=== PATIENT | male | born 1950 | race Caucasian/White ===

== ENCOUNTER 2016-05-27 07:57 | Observation (INO) ==
[2016-05-27] MEDS ORDERED: Aspirin 81 MG TAB.CHEW ONE (08:54)
[2016-05-27] MEDS ORDERED: Aspirin 81 MG TAB.CHEW PO ONE (08:54)
[2016-05-27] MEDS ORDERED: Nitroglycerin 0.4 MG TAB.SUBL SL ONE (08:54)
[2016-05-27] MEDS: Nitroglycerin 0.4 MG TAB.SUBL SL PRN ×3 (08:56→11:57)
[2016-05-27 09:01] LABS: Basophils # 0.1 K/mcL (0.0-0.2); Basophils % 0.6 %; Eosinophils # 0.3 K/mcL (0.0-0.6); Hematocrit 47.5 % (37.5-50.1); Hemoglobin 15.8 g/dL (12.9-16.9); Immature Granulocytes % 0.5 % (0-4); Immature Platelets 2.6 % (1.1-6.1); Lymphocytes # 1.9 K/mcL (0.6-4.6); Mean Corpuscular HGB Conc 33.3 g/dL (31.6-35.5); Mean Corpuscular Volume 87.2 fL (83.0-100.0); Mean Platelet Volume 9.2 fL (9.4-12.4); Monocytes # 0.9 K/mcL (0.0-1.3); Monocytes % 7.1 %; Neutrophils # 9.5 K/mcL (1.6-8.9); Platelet Count 284 K/mcL (140-400); Red Blood Count 5.45 M/mcL (4.19-5.50); Segmented Neutrophils % 74.8 %
[2016-05-27] MEDS ORDERED: Ondansetron 4 MG/2 ML VIAL IVP ONE (09:05)
--- NOTE | 2016-05-27 09:05 | Emergency Department Note ---
Disposition Clinical Impression: Chest pain Qualifiers: Chest pain type: unspecified Qualified Code(s): R07.9 - Chest pain, unspecified Disposition: Admitted As Inpatient Condition: Fair Referrals: Tico Thompson MD [Primary Care Provider] - Forms: ED Satisfaction Letter Time of Disposition: 10:24 Chest Pain HPI - General Chief Complaint: ED Chest Pain Stated Complaint: chest pains,jigna Time Seen by Provider: 05/27/16 08:34 Source: patient Limitations: no limitations Vital Signs Reviewed: Yes Nursing Notes Reviewed: Yes - History of Present Illness HPI Narrative: 66-year-old nontoxic-appearing male presents to emergency department with a chief complaint of left-sided chest pain. The patient states this pain began sometime yesterday evening. He rates the pain a 10 out of 10 on a 10 point scale and describes it as sharp in nature. Patient states this pain is accompanied with a moderate amount of shortness of breath, however he denies any fever, chills, or cough. He complains of some nausea but denies any vomiting or diarrhea. He denies any blood in his urine or blood in his stool. He also complains of intermittent episodes of syncopal episodes. He states that he has been evaluated for this by several different providers including a neurologist. He states the only testing that they have not performed is a tilt table test. He denies any previous cardiac history, although he admits to a history of hypertension, hyperlipidemia, diabetes, and cigarette smoking. Pt complaint: chest pain Onset (ago): day(s) (1) Duration: constant Onset: during rest Pain Location: left chest Severity: severe Severity scale (1-10): 10 Quality: sharp Pain Radiation: none Improves with: nothing Worsens with: nothing Associated symptoms: Reports: nausea, diaphoresis, dyspnea, syncope. Denies: vomiting, cough, leg swelling Treatments prior to arrival chest pain: none - Related Data Home Medications Medication Instructions Recorded Confirmed Gabapentin [Neurontin] 600 mg PO BID 01/08/16 05/27/16 Glimepiride [Amaryl] 4 mg PO BID 01/08/16 05/27/16 Insulin NPH Human Isophane 60 unit SQ BID 01/08/16 05/27/16 [Novolin N] Insulin Regular, Human [Novolin R] 40 unit SQ TIDWM 01/08/16 05/27/16 Metoprolol XL (24 HR) Succ [Toprol 50 mg PO DAILY 01/08/16 05/27/16 Xl] Omeprazole [PriLOSEC] 40 mg PO DAILY 01/08/16 05/27/16 OxyCODONE/APAP 10/325 [Percocet 1 tab PO Q6H PRN 01/08/16 05/27/16 10/325 MG] Duloxetine [Cymbalta] 30 mg PO BID 05/27/16 05/27/16 Liraglutide [Victoza 2-Isac] 1.8 mg SQ DAILY 05/27/16 05/27/16 Ondansetron [Zofran] 8 mg PO TID PRN 05/27/16 05/27/16 Oxcarbazepine [Trileptal] 150 mg PO DAILY 05/27/16 05/27/16 Testosterone Cypionate 200 mg IM Q3W 05/27/16 05/27/16 [Depo-Testosterone] Tizanidine HCl 4 mg PO Q8H PRN 05/27/16 05/27/16 Previous Rx's Medication Instructions Recorded Amlodipine [Norvasc] 10 mg PO DAILY #60 tablet 01/09/16 Atorvastatin [Lipitor] 80 mg PO HS #60 tablet 01/09/16 Allergies Allergy/AdvReac Type Severity Reaction Status Date / Time ciprofloxacin [From Cipro] Allergy Hives Verified 01/07/16 19:41 Quinolones Allergy Hives Verified 01/07/16 19:41 Sulfa (Sulfonamide Allergy Hives Verified 01/07/16 19:41 Antibiotics) celecoxib AdvReac Nausea Verified 01/07/16 19:41 All systems ED: reviewed and negative except as stated. Constitutional: Denies: fever, chills, weakness, weight change Cardiovascular: Reports: as per HPI, chest pain. Denies: palpitations, dyspnea on exertion, orthopnea, edema, syncope, paroxysmal nocturnal dyspnea Respiratory: Reports: as per HPI, dyspnea. Denies: cough, wheezes, hemoptysis, stridor, sputum production Gastrointestinal: Reports: as per HPI, nausea. Denies: abdominal pain, vomiting , diarrhea, constipation, hematemesis, melena, hematochezia Musculoskeletal: Denies: back pain, neck pain, arthralgia, myalgia Integumentary: Denies: rash, abrasion, lesions Neurological: Reports: as per HPI, vertigo (Syncopal episodes that began with a "fluttering" in my ears. It feels like the room is spinning around me".). Denies: headache, weakness, numbness, paresthesias, confusion, abnormal gait Psychiatric: Denies: anxiety, depression, suicidal thoughts, homicidal thoughts , auditory hallucinations, visual hallucinations Endocrine: Denies: fatigue Hematological/Lymphatic: Denies: easy bleeding, easy bruising Chest Pain PMH - Past Medical History Medical history: Reports: diabetes, hyperlipidemia, hypertension, renal disease , other Surgical history: Reports: no surgical history Psychiatric history: Reports: no psych history - Social History Smoking Status: Current every day smoker Alcohol use: Reports: rarely Drug use: Reports: none Physical Exam - General Limitations: no limitations General appearance: alert, in no apparent distress - Head Head exam: atraumatic, normocephalic, normal inspection - Eye Eye exam: Present: normal appearance, PERRL, EOMI. Absent: nystagmus - ENT ENT exam: mucous membranes moist - Neck Neck exam: Present: normal inspection, full ROM, trachea midline. Absent: lymphadenopathy - Chest Chest inspection: Present: normal inspection, symmetric chest wall rise. Absent : rash - Respiratory Respiratory exam: Present: normal lung sounds bilaterally. Absent: respiratory distress, wheezes, stridor, accessory muscle use, prolonged expiratory phase - Abdominal Exam Abdominal exam: Present: soft, Non-Tender, normal bowel sounds. Absent: tenderness, distention, guarding, rebound, rigidity - Extremities Exam Extremities exam: Present: normal inspection, full ROM. Absent: tenderness, pedal edema - Back Exam Back exam: Present: normal inspection, full ROM. Absent: tenderness - Neurological Exam Neurological exam: Present: alert, oriented X3 - Psychiatric Psychiatric exam: Present: normal affect, normal mood - Skin Skin exam: Present: warm, dry, intact, normal color. Absent: rash, cyanosis, diaphoresis, erythema, pallor, mottled Course Course Narrative: We will obtain cardiac labs and a chest x-ray. Will administer aspirin and a nitroglycerin challenge, as the patient still rates his pain a 10 out of 10 on a 10 point scale. - Reevaluation(s) Reevaluation #1: Patient states moderate relief of chest pain after administration of nitroglycerin. His chest pain was a 10 out of 10 prior to administration, now he rates it a 6 out of 10. Time: 09:33 Time: 10:18 Reevaluation #3: I spoke with Dr. Hernandez of the hospitalist service. Dr. Hernanedz accepts the patient to the hospitalist service for further evaluation. Time: 10:23 Vital Signs Temperature 98.0 F 05/27/16 07:59 Pulse Rate 87 05/27/16 07:59 Respiratory Rate 20 05/27/16 07:59 Blood Pressure 175/101 05/27/16 07:59 O2 Sat by Pulse Oximetry 99 05/27/16 07:59 Temperature 98.0 F 05/27/16 07:59 Pulse Rate 81 05/27/16 09:36 Respiratory Rate 18 05/27/16 09:36 Blood Pressure 129/73 05/27/16 09:36 O2 Sat by Pulse Oximetry 96 05/27/16 09:36 Oxygen Delivery Oxygen Delivery Room Air Chest Pain - Medical Records Medical records reviewed: Yes I reviewed the patient's medical records. - Lab Data Lab results reviewed: Yes I reviewed the patient's lab results. Result diagrams: 05/27/16 08:52 05/27/16 08:52 Lab Results 05/27/16 05/27/16 05/27/16 Range/Units 08:52 08:52 08:52 WBC 12.7 H (4.3-11.1) K/mcL RBC 5.45 (4.19-5.50) M/mcL Hgb 15.8 (12.9-16.9) g/dL Hct 47.5 (37.5-50.1) % MCV 87.2 (83.0-100.0) fL MCH 29.0 (28.0-33.3) pg MCHC 33.3 (31.6-35.5) g/dL RDW 15.0 H (11.5-14.5) % Plt Count 284 (140-400) K/mcL MPV 9.2 L (9.4-12.4) fL Immature Gran % 0.5 (0-4) % Seg Neutrophils % 74.8 % Lymphocytes % 15.0 % Monocytes % 7.1 % Eosinophils % 2.0 % Basophils % 0.6 % Neutrophils # 9.5 H (1.6-8.9) K/mcL Lymphocytes # 1.9 (0.6-4.6) K/mcL Monocytes # 0.9 (0.0-1.3) K/mcL Eosinophils # 0.3 (0.0-0.6) K/mcL Basophils # 0.1 (0.0-0.2) K/mcL Immature Plt Fraction 2.6 (1.1-6.1) % PT 10.1 (9.4-12.1) Seconds INR 0.9 APTT 32.9 (26.0-36.0) Seconds Sodium (136-145) mEq/L Potassium (3.5-4.5) mEq/L Chloride (98-109) mEq/L Carbon Dioxide (19-29) mEq/L BUN (8-26) mg/dL Creatinine (0.72-1.25) mg/dL Est GFR ( Amer) (> 60) Est GFR (Non-Af Amer) (> 60) BUN/Creatinine Ratio (6-26) Glucose (70-99) mg/dL Calculated Osmolality (280-300) Calcium (8.6-10.8) mg/dL Troponin I (0-0.03) ng/mL B-Natriuretic Peptide 31 (0-100) pg/mL 05/27/16 05/27/16 Range/Units 08:52 08:52 WBC (4.3-11.1) K/mcL RBC (4.19-5.50) M/mcL Hgb (12.9-16.9) g/dL Hct (37.5-50.1) % MCV (83.0-100.0) fL MCH (28.0-33.3) pg MCHC (31.6-35.5) g/dL RDW (11.5-14.5) % Plt Count (140-400) K/mcL MPV (9.4-12.4) fL Immature Gran % (0-4) % Seg Neutrophils % % Lymphocytes % % Monocytes % % Eosinophils % % Basophils % % Neutrophils # (1.6-8.9) K/mcL Lymphocytes # (0.6-4.6) K/mcL Monocytes # (0.0-1.3) K/mcL Eosinophils # (0.0-0.6) K/mcL Basophils # (0.0-0.2) K/mcL Immature Plt Fraction (1.1-6.1) % PT (9.4-12.1) Seconds INR APTT (26.0-36.0) Seconds Sodium 134 L (136-145) mEq/L Potassium 4.2 (3.5-4.5) mEq/L Chloride 102 (98-109) mEq/L Carbon Dioxide 23 (19-29) mEq/L BUN 20 (8-26) mg/dL Creatinine 2.45 H (0.72-1.25) mg/dL Est GFR ( Amer) 32 L (> 60) Est GFR (Non-Af Amer) 26 L (> 60) BUN/Creatinine Ratio 8 (6-26) Glucose 160 H (70-99) mg/dL Calculated Osmolality 284 (280-300) Calcium 8.6 (8.6-10.8) mg/dL Troponin I 0.01 (0-0.03) ng/mL B-Natriuretic Peptide (0-100) pg/mL - Radiology Data Radiology results reviewed: Yes I reviewed the patient's radiology results. - EKG Data EKG attestation: Yes I reviewed and interpreted this EKG. EKG results narrative: EKG results reviewed by Dr. King as well. EKG shows normal: sinus rhythm Rate: normal Rhythm: NSR Ectopy: PVC Heart Score - Score History: Moderately Suspicious EKG: Non Specific repolarisation Disturbance Age: Greater than 65 Risk Factors: Equal/Greater than 3 risk factor or history of atherosclerotic disease
[2016-05-27 09:06] LABS: INR 0.9; Prothrombin Time 10.1 Seconds (9.4-12.1)
[2016-05-27 09:09] LABS: Activated Partial Thrombo Time 32.9 Seconds (26.0-36.0)
[2016-05-27 09:12] LABS: Calcium 8.6 mg/dL (8.6-10.8); Potassium 4.2 mEq/L (3.5-4.5)
[2016-05-27] MEDS ORDERED: Acetaminophen 325 MG TABLET PO PRN (10:52)
[2016-05-27] MEDS ORDERED: Ondansetron 4 MG/2 ML VIAL IVP PRN (10:52)
[2016-05-27] MEDS ORDERED: Naloxone 0.4 MG/ML INJ IVP PRN (10:52)
[2016-05-27] MEDS ORDERED: D5% in Water 1,000 ML IV PRN (11:58)
[2016-05-27] MEDS ORDERED: *HR* Dextrose 50 % in Water (Syg) 50 ML SYRINGE IVP PRN (11:58)
[2016-05-27] MEDS ORDERED: Dextrose Gel 15 GM PO PRN ×2 (11:58)
[2016-05-27] MEDS: *HR* HYDROcodone/Acet 5/325 mg TABLET PO PRN ×2 (11:59→18:06)
[2016-05-27] MEDS ORDERED: Insulin Regular, Human 100 UNIT/ML SQ SCH (12:00)
--- NOTE | 2016-05-27 12:06 | Internal Med History&Physical ---
Date of Encounter: 05/27/16 Time of Encounter: 11:00 Assessment and Plan (1) Chest pain Current visit: Yes Status: Acute 1 presently no chest pain first cardiac troponin negative. Cardiac troponins- continuous monitoring monitoring 2 oxygen and nitroglycerin as needed 3 we will continue with beta asher and aspirin and statin 29 December 2015 EF 75% with normal LV function will arrange for pharmalogical stress test in am- NPO after midnight 5 consult cardiology as needed (2) Syncope Current visit: No Status: Resolved 1. Patient has had rigors workup as outpatient with neurology as well as neurosurgery. He is scheduled for a tilt table test as an outpatient. We will continue with outpatient follow-ups. Continue with neurology follow-up and consult as needed 2 place patient on fall precautions Qualifiers: Syncope type: unspecified Qualified Code(s): R55 - Syncope and collapse (3) Chronic kidney disease (CKD), stage III (moderate) Current visit: No Status: Acute 1 patient's creatinine has 2.45. He runs between 1.4-2.2 his baseline. We will continue to monitor creatinine 2 we will avoid nephrotoxins 3 monitor intake and output 4 maintain MAP greater than and 60 systolic less than 140 (4) DM (diabetes mellitus), type 2, uncontrolled, with renal complications Current visit: No Status: Chronic 1. 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 Goal is to maintain systolic less than 140 Qualifiers: Hypertension type: essential hypertension Qualified Code(s): I10 - Essential (primary) hypertension (6) Polycythemia Current visit: No Status: Chronic 1 patient is being followed by hematology as outpatient will continue with outpatient follow-ups and consult as needed (7) Tobacco use disorder Current visit: No Status: Chronic 1 encouraged patient to stop smoking -nicotine patch (8) DVT prophylaxis Current visit: Yes Status: Acute 1 heparin Internal Medicine - H&P: HPI Chief complaint: CP Admitted From: Home Plans for Post Hospital Care: Home History of present illness: Mr. 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 For the past 2 years the patient has been experiencing paroxysmal syncopal episodes which are preceded by flashes of white light headache diaphoresis, and a brief loss of consciousness for approximately 1 minute. He does not experience any loss of bowel or bladder however at times he does have nausea and vomiting once he wakes. He has undergone rigorous workup with neurology as well as neurosurgery at [facility]. He is awaiting to perform a tilt table test as an outpatient. . He also admits to having chest pain off and on for approximately 2 weeks in which there are no aggravating or relieving factors and resolves on own. According to the patient last night he was sitting in his chair and experienced a diaphoretic episode. He anticipated experiencing a syncopal episode so he went to his bed to lie down. He said the diaphoresis continued he did experience a brief lost consciousness for approximately 1 minute when he awoke he was experiencing left-sided sharp nonradiating 10/10 chest pain. He did have some nausea and lightheadedness however he states this is chronic. He went to bed and when he awoke this morning the chest pain had continued. He presented to the ER for evaluation. According to ER notes the patient was given nitroglycerin which did ease his pain. He was also given aspirin Troponins were negative EKG with no ST-T wave abnormalities noted chest x-ray with chronic changes. Rest of lab work unremarkable. Patient's been admitted for further work up evaluation. Presently patient complains of just back pain which is chronic. Denies any shortness of breath dizziness or headache. Present time patient is hemodynamically stable Past Med Surg Social Fam HX - Past Medical History Medical history: diabetes, hyperlipidemia, hypertension, renal disease, other Psychiatric history: depression - Past Surgical History Surgical History: cholecystectomy, other - Social History Smoking Status: Current every day smoker Packs per day: 1 Smokeless Tobacco Status: No Alcohol use: rarely Drug use: none - Family History Father Hx Family Cardiac Disorders: Yes Mother Name: Marylin Xavier Living Status: Age at : 69 Cause of : cancer Hx Family Cancer: Yes Brother Hx Family Cardiac Disorders: Yes Hx Family Cancer: Yes Internal Medicine - H&P: Meds Gabapentin [Neurontin] 600 mg PO BID 01/08/16 [History] Glimepiride [Amaryl] 4 mg PO BID 01/08/16 [History] Insulin NPH Human Isophane [Novolin N] 60 unit SQ BID 01/08/16 [History] Insulin Regular, Human [Novolin R] 40 unit SQ TIDWM 01/08/16 [History] Metoprolol XL (24 HR) Succ [Toprol Xl] 50 mg PO DAILY 01/08/16 [History] Omeprazole [PriLOSEC] 40 mg PO DAILY 01/08/16 [History] OxyCODONE/APAP 10/325 [Percocet 10/325 MG] 1 tab PO Q6H PRN 01/08/16 [History] Amlodipine [Norvasc] 10 mg PO DAILY #60 tablet 01/09/16 [Rx] Atorvastatin [Lipitor] 80 mg PO HS #60 tablet 01/09/16 [Rx] Duloxetine [Cymbalta] 30 mg PO BID 05/27/16 [History] Liraglutide [Victoza 2-Isac] 1.8 mg SQ DAILY 05/27/16 [History] Ondansetron [Zofran] 8 mg PO TID PRN 05/27/16 [History] Oxcarbazepine [Trileptal] 150 mg PO DAILY 05/27/16 [History] Testosterone Cypionate [Depo-Testosterone] 200 mg IM Q3W 05/27/16 [History] Tizanidine HCl 4 mg PO Q8H PRN 05/27/16 [History] Allergies ciprofloxacin [From Cipro] Allergy (Verified 01/07/16 19:41) Hives Quinolones Allergy (Verified 01/07/16 19:41) Hives Sulfa (Sulfonamide Antibiotics) Allergy (Verified 01/07/16 19:41) Hives celecoxib Adverse Reaction (Verified 01/07/16 19:41) Nausea All Systems PM: A 10-system review of systems was performed and is negative for pertinent findings except as documented above in the HPI. - Constitutional Constitutional: no chills, no fever(s), no night sweats - EENT Eyes: seeing flashes - Cardiovascular Cardiovascular ROS IM: chest pain, lightheadedness, syncope - Respiratory Respiratory: dyspnea - Gastrointestinal Gastrointestinal: no abdominal pain, no diarrhea, no hematemesis, no hematochezia, no melena, no nausea, no vomiting - Musculoskeletal Musculoskeletal ROS IM: no numbness, no tingling - Integumentary Integumentary IM: no rash, no unusual bruising - Neurological Neurological ROS: headache(s), other visual disturbances - Constitutional Vitals: Temp Pulse Resp BP Pulse Ox 97.9 F 82 14 160/65 94 L 05/27/16 10:43 05/27/16 10:43 05/27/16 10:43 05/27/16 10:43 05/27/16 10:43 General appearance: Present: A&O X 3, obese, answers questions appropriately - Head Head exam: Present: atraumatic, normocephalic - Eye Eye exam: Present: PERRL, conjuntiva pink, sclera anicteric Pupils: Present: PERRL - Neck Neck exam general surgery: Present: supple, trachea midline. Absent: lymphadenopathy - Respiratory Respiratory exam: Present: CTAB. Absent: accessory muscle use, rales, rhonchi, wheezes - Cardiovascular Cardiovascular exam: Present: RRR, +S1, +S2. Absent: diastolic murmur, gallop, rubs, systolic murmur - GI/Abdominal GI/Abdominal exam: Present: normal bowel sounds, soft, no peritoneal signs. Absent: distended, tenderness - Extremities Exam Extremities exam: Present: warm, radial pulses palpable and symetrical. Absent : calf tenderness, cyanotic, pedal edema - Neurological Exam Neurological exam: Present: CN II-XII intact, oriented X3, no focal deficits. Absent: pronater drift, facial droop, speech deficit - Skin Skin exam: Present: dry, intact Internal Med - H&P Results - Labs CBC & Chem 7: 05/27/16 08:52 05/27/16 08:52 - EKG Data EKG shows normal: sinus rhythm - EKG Data Prior EKG available for review: yes EKG comments: 05/27/16 12:[address] Hernandez no acute ischemic changes noted - Diagnostic Studies Chest x-ray Additional comments: per radiology read : Problems with the interstitial markings in the bases which could be chronic correlation interstitial edema recommended.
[2016-05-27] MEDS ORDERED: Insulin NPH 100 UNIT/ML (x5UNIT) SQ SCH (16:30)
[2016-05-27] MEDS: *HR* Heparin 5,000 UNIT/ML VIAL SQ SCH (17:47)
[2016-05-27] MEDS: Insulin LISPRO 300 UNITS/3 ML VIAL SQ SCH (17:47)
[2016-05-27] MEDS: amLODIPine 5 MG TABLET PO SCH (20:40)
[2016-05-27] MEDS: Gabapentin 300 MG CAPSULE PO SCH (20:40)
[2016-05-27] MEDS ORDERED: Insulin DETEMIR 100 UNIT/ML X5UNITS SQ SCH (21:00)
[2016-05-27] MEDS ORDERED: Insulin LISPRO 300 UNITS/3 ML VIAL SQ SCH (21:00)
[2016-05-28 05:18] LABS: Basophils # 0.1 K/mcL (0.0-0.2); Basophils % 0.8 %; Eosinophils # 0.3 K/mcL (0.0-0.6); Eosinophils % 3.3 %; Hematocrit 46.6 % (37.5-50.1); Hemoglobin 15.7 g/dL (12.9-16.9); Immature Granulocytes % 0.6 % (0-4); Lymphocytes # 1.8 K/mcL (0.6-4.6); Lymphocytes % 19.3 %; Mean Corpuscular HGB Conc 33.7 g/dL (31.6-35.5); Mean Corpuscular Hemoglobin 29.1 pg (28.0-33.3); Mean Corpuscular Volume 86.3 fL (83.0-100.0); Mean Platelet Volume 9.6 fL (9.4-12.4); Neutrophils # 6.3 K/mcL (1.6-8.9); Platelet Count 299 K/mcL (140-400); Red Cell Distribution Width 14.6 % (11.5-14.5)
[2016-05-28 05:54] LABS: Calcium 8.9 mg/dL (8.6-10.8); Chol/HDL Ratio 6.7 (0-4.9); Potassium 4.5 mEq/L (3.5-4.5)
[2016-05-28] MEDS ORDERED: Regadenoson 0.4 MG/5 ML SYRINGE IVP ONE (06:25)
[2016-05-28] MEDS: *HR* Heparin 5,000 UNIT/ML VIAL SQ SCH (06:27)
[2016-05-28] MEDS ORDERED: cloNIDine HCl 0.1 MG TABLET PO ONE (06:40)
[2016-05-28] MEDS ORDERED: Metoprolol XL (24 HR) Succ 50 MG TAB.ER.24H PO SCH ×2 (06:52→09:00)
[2016-05-28] MEDS ORDERED: Aspirin Enteric Coated 81 MG Tablet PO SCH (09:00)
[2016-05-28] MEDS ORDERED: amLODIPine 5 MG TABLET PO SCH (09:00)
[2016-05-28] MEDS ORDERED: OXcarbazepine 150 MG TABLET PO SCH (09:00)
[2016-05-28] MEDS: Insulin LISPRO 300 UNITS/3 ML VIAL SQ SCH ×2 (11:30→11:33)
[2016-05-28] MEDS: Gabapentin 300 MG CAPSULE PO SCH (11:33)
[2016-05-28] MEDS: amLODIPine 5 MG TABLET PO SCH (11:33)
--- NOTE | 2016-05-28 12:14 | Nuclear Medicine Stress Report ---
Regadenoson Nuclear Stress Name: Varun Xavier Date of Study: 05/28/2016 Date: 1950 Ht: 68.0 in Medical Record#: [id number] Age: 66 Wt: 250.0 lb Gender: Male Order #: [id number] Location: [facility] Room: [place] Supervising Provider: Booker Aguiar CNP Reading Physician: Yovany Tejada DO, SALLY ESPINOZA FASNC Ordering Physician: Aleyda Lima MD Primary Care Physician: Tico Thompson MD Stress Technologist: Yaz Dorado PIG FARM MANAGER, CCT Facility Technician: Madhuri Back Indications: Chest Pain Impression: Pharmacologic stress ECG is non diagnostic for ischemia due to submaximal HR. Gated EF = 47%. Small size, mild intensity, fixed apex perfusion defect suggestive of artifact. Perfusion imaging was negative for ischemia or infarct. History: Hypertension Diabetes Hypercholesteremia History of Smoking Stress Test Summary: Stress Test Type: Pharmacologic Regadenoson 0.4mg/5ml given IV Baseline Information: Initial Heart Rate: 68 Blood Pressure: 138/82 Stress Information: Test Terminated Due to (primary): As per protocol Maximum Blood Pressure: 126/72 Maximum Heart Rate: 93 Percent Maximum Heart Rate Achieved: 61 Double Product: [id number] METS Reached: 93 Symptoms: Chest pain Nuclear Summary: SPECT myocardial perfusion imaging using Tc99m Sestamibi given intravenously was performed at rest and following cardiac stress testing. The resting images were obtained following initial dose of 11.6 mCi. Following stress an additional dose of 30.4 mCi was given at peak exercise or 30 seconds post regadenoson infusion. Medication Given: Time Medication Dose Units Route Findings: Stress Note * Resting ECG demonstrated normal sinus rhythm. * No baseline arrhythmias were noted. * Pharmacologic stress ECG is non diagnostic for ischemia due to submaximal HR. * Rare PACs noted during stress. * Patient had no chest pain during stress. * Normal hemodynamic responses to pharmacologic stress. Study Quality * Study quality is average. Gated EF % * Gated EF = 47%. Left Ventricle * The left ventricle is dilated. LVEDV = 152 mL. Apical Perfusion Stress * The apex segment shows a mild reduction in perfusion. Apical Perfusion Rest * The apex segment shows a mild reduction in perfusion. TID * No evidence of transient ischemic dilatation. TID ratio = 1.10. Lung Uptake * There is no evidence of increase lung uptake. Updated by Yovany Tejada DO, ALEXIS, SALLY, STEFAN on 05/28/2016 12:07:28 PM electronically signed on 05/28/2016 12:08:13 PM with status of Final
[2016-05-28] MEDS ORDERED: Nicotine 14 MG PATCH.TD24 TD SCH (13:15)
--- NOTE | 2016-05-28 14:32 | Internal Med Progress Note ---
Date of Encounter: 05/28/16 Time of Encounter: 02:00 - Constitutional Vitals: Temp Pulse Resp BP Pulse Ox 97.6 F 84 16 165/91 94 L 05/28/16 11:24 05/28/16 11:24 05/28/16 11:24 05/28/16 11:24 05/28/16 11:24 General appearance: Present: A&O X 3, obese, answers questions appropriately Internal Medicine: Result - Labs CBC & Chem 7: 05/28/16 04:00 05/28/16 04:00 Labs: Short CBC 05/28/16 Range/Units 04:00 WBC 9.5 (4.3-11.1) K/mcL Hgb 15.7 (12.9-16.9) g/dL Hct 46.6 (37.5-50.1) % Plt Count 299 (140-400) K/mcL Neutrophils # 6.3 (1.6-8.9) K/mcL BMP 05/28/16 04:00 Sodium 135 L Potassium 4.5 Chloride 102 Carbon Dioxide 24 BUN 22 Creatinine 2.73 H Glucose 242 H Calcium 8.9 Cardiac Enzymes 05/27/16 05/27/16 Range/Units 15:00 21:55 Troponin I 0.02 0.02 (0-0.03) ng/mL - ABG Interpretation ABG results: PT/INR, D-dimer PT 10.1 Seconds (9.4-12.1) 05/27/16 08:52 Consult Discharge Plan - Plan Referrals: Tico Thompson MD [Primary Care Provider] -
--- NOTE | 2016-05-28 14:32 | Electrocardiograph Report ---
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
[2016-05-28 15:18] VITALS: BP 158/85
--- NOTE | 2016-05-28 17:12 | Discharge Summary ---
Date of Encounter: 05/29/16 Time of Encounter: 17:00 - Discharge Diagnosis (1) Systolic dysfunction Priority: Secondary Status: Acute (2) Chest pain Priority: Primary Status: Acute Qualifiers: Chest pain type: unspecified Qualified Code(s): R07.9 - Chest pain, unspecified (3) Syncope Priority: Primary Status: Resolved Qualifiers: Syncope type: unspecified Qualified Code(s): R55 - Syncope and collapse - Discharge Medications Prescriptions: Nitroglycerin 0.4 mg SL Q5MIN PRN #25 tab.subl PRN Reason: Chest Pain Aspirin Enteric Coated [Aspirin EC] 81 mg PO DAILY #30 tablet.dr Nicotine Patch [Nicoderm] 14 mg TD DAILY #30 patch.td24 Home Medications: Gabapentin [Neurontin] 600 mg PO BID 01/08/16 [History] Glimepiride [Amaryl] 4 mg PO BID 01/08/16 [History] Insulin NPH Human Isophane [Novolin N] 60 unit SQ BID 01/08/16 [History] Insulin Regular, Human [Novolin R] 40 unit SQ TIDWM 01/08/16 [History] Metoprolol XL (24 HR) Succ [Toprol Xl] 50 mg PO DAILY 01/08/16 [History] Omeprazole [PriLOSEC] 40 mg PO DAILY 01/08/16 [History] OxyCODONE/APAP 10/325 [Percocet 10/325 MG] 1 tab PO Q6H PRN 01/08/16 [History] Amlodipine [Norvasc] 10 mg PO DAILY #60 tablet 01/09/16 [Rx] Atorvastatin [Lipitor] 80 mg PO HS #60 tablet 01/09/16 [Rx] Duloxetine [Cymbalta] 30 mg PO BID 05/27/16 [History] Liraglutide [Victoza 2-Isac] 1.8 mg SQ DAILY 05/27/16 [History] Ondansetron [Zofran] 8 mg PO TID PRN 05/27/16 [History] Oxcarbazepine [Trileptal] 150 mg PO DAILY 05/27/16 [History] Testosterone Cypionate [Depo-Testosterone] 200 mg IM Q3W 05/27/16 [History] Tizanidine HCl 4 mg PO Q8H PRN 05/27/16 [History] Aspirin Enteric Coated [Aspirin EC] 81 mg PO DAILY #30 tablet. 05/28/16 [Rx] Nicotine Patch [Nicoderm] 14 mg TD DAILY #30 patch.td24 05/28/16 [Rx] Nitroglycerin 0.4 mg SL Q5MIN PRN #25 tab.subl 05/28/16 [Rx] Allergies/Adverse Reactions: Allergies ciprofloxacin [From Cipro] Allergy (Verified 01/07/16 19:41) Hives Quinolones Allergy (Verified 01/07/16 19:41) Hives Sulfa (Sulfonamide Antibiotics) Allergy (Verified 01/07/16 19:41) Hives celecoxib Adverse Reaction (Verified 01/07/16 19:41) Nausea Procedures/tests Complete & Pending: Procedures Performed prior 72 hours Category Date Time Status NM el perf SPECT multi [NM] Routine Exams 05/28/16 08:00 Taken SP pharm nuclear stress Routine Y 05/28/16 07:30 Completed Date of admission: 05/27/16 10:26 Primary care physician: Tico Thompson MD Consults: 05/28/16 14:30 Consult to Cardiology [CONS] Routine Comment: Consulting Provider: [facility] Reason for Consult: Recurrent syncope one to twice weekly, systolic dysfunction, borderline stress test may consider cardiac Cath, Need event monitor Call Completed: Yes Discharging clinician: Yessica Hunter - Patient Status Disposition: Home, Self-Care Condition: Fair - Discharge Instructions Instructions: Chest Pain (DC) Follow Up With: Tico Thompson MD [Primary Care Provider] - (We have requested a follow up appointment with Dr Thompson. The office will call you at home with an appointment date and time.) Yovany Tejada DO [Partnered Physician] - (We have requested a follow up appointment with [facility]. The office will call you at home with an appointment date and time.) - Diet and Activity Activity: increase activity as tolerated, other Interval History: 66 year old male with past medical history of hypertension, polycythemia, brain aneurysm with clipping, insulin-dependent diabetic rheumatoid arthritis paroxysmal syncopal episodes. For the past 2 years the patient has been experiencing paroxysmal syncopal episodes which are preceded by flashes of white light headache diaphoresis, and a brief loss of consciousness for approximately 1 minute. He does not experience any loss of bowel or bladder however at times he does have nausea and vomiting once he wakes. He has undergone extensive workup with neurology as well as neurosurgery at [facility]. He is awaiting to perform a tilt table test as an outpatient. . He also admits to having chest pain off and on for approximately 2 weeks in which there are no aggravating or relieving factors and resolves on own. According to the patient last night he was sitting in his chair and experienced a diaphoretic episode. He anticipated experiencing a syncopal episode so he went to his bed to lie down. He said the diaphoresis continued he did experience a brief lost consciousness for approximately 1 minute when he awoke he was experiencing left-sided sharp nonradiating 10/10 chest pain. He did have some nausea and lightheadedness however he states this is chronic. He went to bed and when he awoke this morning the chest pain had continued. He presented to the ER for evaluation. Patient was given nitroglycerin which did ease his pain. He was also given aspirin Troponins were negative EKG with no ST-T wave abnormalities noted chest x-ray with chronic changes. Rest of lab work unremarkable. Patient's was admitted for further work up evaluation. Patient denies any shortness of breath, dizziness or headache. Patient had a stress test which was nonischemic. Discussed with patient and with his significant risk factor with his syncopal episodes most likely he will need more aggressive workup including cardiac Cath Rule out three vesseles disease. As well as he needs an event monitor to rule out any significant arrhythmia or sick sinus syndrome, had Holter monitor recently which was negative based on patient report. 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 Patient was anxious to go home and he wanted to follow-up with cardiology as an outpatient. Discussed with Dr Roberson after reviewing his stress test she agreed for the patient to follow-up as an outpatient. Patient on multiple medication which causes dizziness and syncope. Seizure medication which can cause arrhythmia. Patient on intermediate acting insulin. Mainly had episodes of hypoglycemia. Consider long-acting insulin and a sliding scale. Consider checking blood sugar more frequent. Consider weaning off medication gradually. 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 May consider changing to different medication. Report will be sent to neurologist as well as neurosurgery and family doctor for further evaluation . Discussed with staff at need to have follow-up with cardiology as an outpatient as soon as possible Hospital course: Mr. Xavier is a 66 year old male - Time Spent with Patient Total time spent providing and/or coordinating discharge services: - Constitutional Vitals: Temp Pulse Resp BP Pulse Ox 98.0 F 84 16 158/85 95 05/28/16 15:16 05/28/16 15:16 05/28/16 15:16 05/28/16 15:16 05/28/16 15:16 General appearance: Present: A&O X 3, obese, answers questions appropriately
== END 2016-05-28 18:20 | disposition home or self-care (01) ==
LOC: EMEROO 07:57 → 3BNU 07:57
PROVIDERS: ADMIT Internal Medicine; ATTEND Internal Medicine

== ENCOUNTER 2017-05-23 08:54 | Inpatient (IN) ==
--- NOTE | 2017-05-23 09:01 | Emergency Department Note ---
Disposition Clinical Impression: Hyperglycemia Chronic kidney disease Qualifiers: Chronic kidney disease stage: unspecified stage Qualified Code(s): N18.9 - Chronic kidney disease, unspecified CVA (cerebral vascular accident) Qualifiers: CVA mechanism: unspecified Qualified Code(s): I63.9 - Cerebral infarction, unspecified Disposition: Admitted As Inpatient Condition: Fair Neuro HPI - General Chief Complaint: ED Neuro Symptoms/Deficit Stated Complaint: Vision changes/Dizzy sent from neuro Time Seen by Provider: 05/23/17 09:00 Source: patient, family Mode of arrival: ambulatory Limitations: no limitations Nursing Notes Reviewed: Yes Vital Signs Reviewed: Yes - History of Present Illness HPI Narrative: 67-year-old male with a history of hypertension, diabetes and recent diagnosis of CVA by MRI 2 days ago presents for evaluation of vision changes. Patient states that his vision has not significantly changed in the past 2 days. Patient refuses admission 2 days ago. Patient did see a neurologist prior to arrival and was told to go the ER for admission. Patient denies any other focal findings. Denying chest pain or short of breath. Denies abdominal pain or nausea or vomiting. Patient denies any other focal neurologic deficits. No weaknesses. No sensation changes. Patient states that he simply cannot see his left peripheral vision. No change in recent corrective lenses. Patient did see his tax auditor during this timeframe and was told to go to the ER which prompted the MRI. - Related Data Home Medications: Home Medications Medication Instructions Recorded Confirmed Gabapentin [Neurontin] 600 mg PO BID 01/08/16 05/23/17 Glimepiride [Amaryl] 4 mg PO BID 01/08/16 05/23/17 Insulin NPH Human Isophane 60 unit SQ BID 01/08/16 05/23/17 [Novolin N] Insulin Regular, Human [Novolin R] 40 unit SQ TIDWM 01/08/16 05/23/17 Metoprolol XL (24 HR) Succ [Toprol 50 mg PO DAILY 01/08/16 05/23/17 Xl] Omeprazole [PriLOSEC] 40 mg PO DAILY 01/08/16 05/23/17 OxyCODONE/APAP 10/325 [Percocet 1 tab PO Q6H PRN 01/08/16 05/23/17 10/325 MG] DULoxetine [Cymbalta] 30 mg PO BID 05/27/16 05/23/17 Tizanidine HCl 4 mg PO Q8H PRN 05/27/16 05/23/17 hydrALAZINE [HydrALAZINE] 25 mg PO Q8HR 05/23/17 05/23/17 Previous Rx's Medication Instructions Recorded Atorvastatin [Lipitor] 80 mg PO HS #60 tablet 01/09/16 amLODIPine [Norvasc] 10 mg PO DAILY #60 tablet 01/09/16 Nitroglycerin 0.4 mg SL Q5MIN PRN #25 tab.subl 05/28/16 Aspirin 325 mg PO DAILY #30 tablet 05/21/17 Clopidogrel [Plavix] 75 mg PO DAILY #30 tablet 05/21/17 Allergies/Adverse Reactions: Allergies Allergy/AdvReac Type Severity Reaction Status Date / Time ciprofloxacin [From Cipro] Allergy Hives Verified 05/21/17 12:06 Sulfa (Sulfonamide Allergy Hives Verified 05/21/17 12:06 Antibiotics) celecoxib AdvReac Nausea Verified 05/21/17 12:06 All systems ED: reviewed and negative except as stated. Constitutional: Reports: as per HPI. Denies: fever Eyes: Reports: as per HPI ENT ED: Reports: as per HPI Cardiovascular: Reports: as per HPI. Denies: chest pain Respiratory: Reports: as per HPI. Denies: cough, dyspnea Gastrointestinal: Reports: as per HPI. Denies: abdominal pain, nausea, vomiting Genitourinary: Reports: as per HPI Musculoskeletal: Reports: as per HPI Integumentary: Reports: as per HPI Neurological: Reports: as per HPI. Denies: headache, weakness, numbness Psychiatric: Reports: as per HPI Endocrine: Reports: as per HPI Hematological/Lymphatic: Reports: as per HPI Allergic/Immunologic: Reports: as per HPI Past Medical History - Past Medical History Medical history: Reports: CVA, diabetes, hyperlipidemia, hypertension, renal disease, other Surgical history: Reports: cholecystectomy, other Psychiatric history: Reports: depression - Social History Smoking Status: Current every day smoker Smokeless Tobacco Status: No Alcohol use: Reports: none Drug use: Reports: none Physical Exam - General Limitations: no limitations General appearance: alert, in no apparent distress - Head Head exam: atraumatic, normocephalic, normal inspection - Eye Eye exam: Present: normal appearance, EOMI. Absent: nystagmus, miosis, mydriasis - ENT ENT exam: normal exam, normal oropharynx, mucous membranes moist - Neck Neck exam: Present: normal inspection, trachea midline - Chest Chest inspection: Present: normal inspection, symmetric chest wall rise - Respiratory Respiratory exam: Present: normal lung sounds bilaterally. Absent: respiratory distress - Cardiovascular Cardiovascular exam: Present: regular rate, normal rhythm - Abdominal Exam Abdominal exam: Present: soft, Non-Tender - Extremities Exam Extremities exam: Present: normal inspection - Expanded Lower Extremity Exam Neurovascular/Tendon exam: Present: normal capillary refill - Neurological Exam Neurological exam: Present: alert, oriented X3, CN II-XII intact, other (Left- sided peripheral vision loss) - Expanded Neurological Exam Patient oriented to: Present: person, place, time Speech: Present: fluid speech Cranial nerves: EOM function (II, III, IV, ): Normal, facial sensation (V): Normal, facial palsy (VII): Normal, spinal accessory function (XI): Normal, tongue deviation (XII): Normal Cerebellar function: finger to nose: Normal Motor strength - LUE: 5/5 Motor strength - RUE: 5/5 Motor strength - LLE: 5/5 Motor strength - RLE: 5/5 Upper motor neuron exam: pronator drift: Absent bilaterally Sensory exam upper extremity: light touch: Normal Sensory exam lower extremity: light touch: Normal Coma Scale Eye Opening: Spontaneous Coma Scale Motor Response: Obeys Commands Coma Scale Verbal Response: Oriented Coma Scale Total: 15 - Skin Skin exam: Present: warm, dry, intact, normal color Course Course Narrative: Records review shows that he has a right occipital infarct from MRI in the past. Patient had basic lab work chest x-ray EKG and admission. Patient was not a stroke alert as he is outside any type of timeframe for interventions. Vital Signs Temperature 97.1 F L 05/23/17 08:55 Pulse Rate 68 05/23/17 08:55 Respiratory Rate 18 05/23/17 08:55 Blood Pressure 168/74 05/23/17 08:55 O2 Sat by Pulse Oximetry 97 05/23/17 08:55 Temperature 97.1 F L 05/23/17 08:55 Pulse Rate 93 05/23/17 11:13 Respiratory Rate 16 05/23/17 11:13 Blood Pressure 153/73 05/23/17 11:13 O2 Sat by Pulse Oximetry 97 05/23/17 11:13 Oxygen Delivery Oxygen Delivery Room Air Neuro Symptoms/Deficit - MDM Narrative Medical decision making narrative: 67-year-old male presents with CVA symptoms including vision changes. Patient was seen 2 days ago with an MRI/MRA of the brain. Patient had been diagnosed with a CVA at that time. Patient refused admission at that time. Had a follow- up above with neurology today states that he needs to be admitted for further evaluation. Patient had basic lab work which is chronic in disease as well as hyperglycemia. Patient's resting. Patient Was Not a Stroke Alert Given the Timing and Onset of Symptoms. Patient Would Likely Benefit from Stroke Reduction Evaluation with Echo, Vascular Evaluation of the Carotids As Well As Education and Management on Hyperglycemia and High Blood Pressure. Patient Was Offered an Aspirin in the Emergency Department However the Patient to Full Dose Aspirin Prior to Arrival. Patient's Neuro Symptoms Are Consistent with MRI Findings 2 Days Ago. Repeat Imaging of the Brain Was Not Obtained Today. - Medical Records Medical records reviewed: Yes I reviewed the patient's medical records. His records reviewed show a infarct in the right posterior cerebral artery causing infarct in the right occipital lobe - Lab Data Lab results reviewed: Yes I reviewed the patient's lab results. Result diagrams: 05/23/17 09:47 05/23/17 09:47 Lab Results 05/23/17 05/23/17 05/23/17 Range/Units 09:47 09:47 09:47 WBC 12.0 H (4.3-11.1) K/mcL RBC 5.01 (4.19-5.50) M/mcL Hgb 15.0 (12.9-16.9) g/dL Hct 44.6 (37.5-50.1) % MCV 89.0 (83.0-100.0) fL MCH 29.9 (28.0-33.3) pg MCHC 33.6 (31.6-35.5) g/dL RDW 13.8 (11.5-14.5) % Plt Count 262 (140-400) K/mcL MPV 9.8 (9.4-12.4) fL Immature Gran % 0.6 (0-4) % Seg Neutrophils % 71.0 % Lymphocytes % 18.0 % Monocytes % 7.2 % Eosinophils % 2.6 % Basophils % 0.6 % Neutrophils # 8.5 (1.6-8.9) K/mcL Lymphocytes # 2.2 (0.6-4.6) K/mcL Monocytes # 0.9 (0.0-1.3) K/mcL Eosinophils # 0.3 (0.0-0.6) K/mcL Basophils # 0.1 (0.0-0.2) K/mcL PT 9.9 (9.4-12.1) Seconds INR 0.9 APTT 34.2 (26.0-36.0) Seconds Sodium 134 L (136-145) mEq/L Potassium 4.5 (3.5-5.1) mEq/L Chloride 107 (98-107) mEq/L Carbon Dioxide 23 (23-29) mEq/L BUN 32 H (8-23) mg/dL Creatinine 3.76 H (0.70-1.30) mg/dL Est GFR ( Amer) 19 L (> 60) Est GFR (Non-Af Amer) 16 L (> 60) BUN/Creatinine Ratio 9 (6-26) Glucose 243 H (70-105) mg/dL Calculated Osmolality 293 (280-300) Calcium 8.5 L (8.6-10.3) mg/dL Troponin I (< 0.04) ng/mL 05/23/17 Range/Units 09:47 WBC (4.3-11.1) K/mcL RBC (4.19-5.50) M/mcL Hgb (12.9-16.9) g/dL Hct (37.5-50.1) % MCV (83.0-100.0) fL MCH (28.0-33.3) pg MCHC (31.6-35.5) g/dL RDW (11.5-14.5) % Plt Count (140-400) K/mcL MPV (9.4-12.4) fL Immature Gran % (0-4) % Seg Neutrophils % % Lymphocytes % % Monocytes % % Eosinophils % % Basophils % % Neutrophils # (1.6-8.9) K/mcL Lymphocytes # (0.6-4.6) K/mcL Monocytes # (0.0-1.3) K/mcL Eosinophils # (0.0-0.6) K/mcL Basophils # (0.0-0.2) K/mcL PT (9.4-12.1) Seconds INR APTT (26.0-36.0) Seconds Sodium (136-145) mEq/L Potassium (3.5-5.1) mEq/L Chloride (98-107) mEq/L Carbon Dioxide (23-29) mEq/L BUN (8-23) mg/dL Creatinine (0.70-1.30) mg/dL Est GFR ( Amer) (> 60) Est GFR (Non-Af Amer) (> 60) BUN/Creatinine Ratio (6-26) Glucose (70-105) mg/dL Calculated Osmolality (280-300) Calcium (8.6-10.3) mg/dL Troponin I < 0.03 (< 0.04) ng/mL - Radiology Data Radiology results reviewed: Yes I reviewed the patient's radiology results. Chest X-Ray 05/23/17 09:26 IMPRESSION: No acute process. D/ / Caleb Rodrigez MD / Caleb Rodrigez MD Interpreting Provider: Caleb Rodrigez MD Stroke Scale - Level of Consciousness LOC: Alert - LOC Questions LOC Questions: Answers both correctly - LOC Commands LOC Commands: Performs both correctly - Best Gaze Best Gaze: Normal - Visual Visual: Partial hemianopia - Facial Palsy Facial Palsy: Normal - Motor Arms Motor Arm-Left: No drift for 10 seconds Motor Arm-Right: No drift for 10 seconds - Motor Legs Motor Leg-Left: No drift for 5 seconds Motor Leg-Right: No drift for 5 seconds - Limb Ataxia Limb Ataxia: Absent of affected limb too weak to perform exam - Sensory Sensory: Normal - Best Language Best Language: No aphasia - Dysarthria Dysarthria: Normal - Extinction and Inattention Extinction and Inattention: Normal - NIHSS Total Score NIHSS Total Score: 1 S.B.A.R. - S.B.A.R. Situation: Demographics Background: Presenting Complaint Assessment: Vital Signs, Course and respsone to treatment, Patient/Family Expectation Recommendation: Barrier(s) to disposition, Recommendation based on pending studies, treatments, or consults S.B.A.R. Report Given to: Hospitalist Jimmy Repor Time: 11:18 Attestation Statement - Attestation Attestation: I examined this patient and my medical decision-making was reviewed with the Resident Physician. I agree with the documented findings, disposition and treatment plan as described except to the extent set forth below. Patient to the ED with a stroke. Patient is not having visual symptoms for several days. He saw his tax auditor today who sent him here. He had an MRI that showed a stroke. He followed up with neurology today who sent him back to the ED to be admitted. Patient has visual field deficit to the left disposition. NIH 1. Plan. Basic labs checked. Admitted to medicine with neuro consult.
[2017-05-23] MEDS ORDERED: Aspirin 81 MG TAB.CHEW PO ONE (09:34)
[2017-05-23 09:58] LABS: Basophils # 0.1 K/mcL (0.0-0.2); Basophils % 0.6 %; Eosinophils # 0.3 K/mcL (0.0-0.6); Eosinophils % 2.6 %; Hematocrit 44.6 % (37.5-50.1); Immature Granulocytes % 0.6 % (0-4); Lymphocytes # 2.2 K/mcL (0.6-4.6); Mean Corpuscular HGB Conc 33.6 g/dL (31.6-35.5); Mean Corpuscular Hemoglobin 29.9 pg (28.0-33.3); Mean Platelet Volume 9.8 fL (9.4-12.4); Monocytes # 0.9 K/mcL (0.0-1.3); Monocytes % 7.2 %; Neutrophils # 8.5 K/mcL (1.6-8.9); Platelet Count 262 K/mcL (140-400); Red Blood Count 5.01 M/mcL (4.19-5.50); Red Cell Distribution Width 13.8 % (11.5-14.5)
[2017-05-23 10:03] LABS: INR 0.9; Prothrombin Time 9.9 Seconds (9.4-12.1)
[2017-05-23 10:06] LABS: Activated Partial Thrombo Time 34.2 Seconds (26.0-36.0)
[2017-05-23 10:09] LABS: Calcium 8.5 mg/dL (8.6-10.3); Potassium 4.5 mEq/L (3.5-5.1)
--- NOTE | 2017-05-23 11:40 | Internal Med History&Physical ---
<Diego Rosenbaum - Last Filed: 05/23/17 11:36> Date of Encounter: 05/23/17 Time of Encounter: 11:36 Assessment and Plan (1) Stroke due to occlusion of right posterior cerebral artery Status: Acute CVA- Presents with acute onset of left homonymous hemianopsia. He has a history of aneurysm requiring clipping. He is not a candidate for thrombolysis due to onset of symptoms approximately 3 weeks ago. For this reason as well as for go permissive hypertension. -MRI/MRA head/brain without contrast reveals right occipital infarct and right OLDER ADULT SOCIAL WORK SPECIALIST occlusion of distal right OLDER ADULT SOCIAL WORK SPECIALIST at P4 segment -TTE now -Start/Continue ASA, statin and Plavix -Continue home Antihypertensives with goal BP of <140 -CBC, BMP/CMP, Lipid panel in am -NIHSS now score of 1 -Dysphagia screening now -Neuro checks q4hrs/per protocol -Consult Neurology- spoke with Dr. Mario as recommended and ECG and echocardiogram to assess for atrial fibrillation as patient has an irregularly irregular rhythm and may need anticoagulation. Consider counseling cardiology based upon results -Heparin 5000units SC BID for DVT prophylaxis -Resume cardiac/diabetic diet now (2) Hemochromatosis Status: Acute History of, being managed by hematology/oncology, current H&H Qualifiers: Hemochromatosis type: unspecified Qualified Code(s): E83.119 - Hemochromatosis, unspecified (3) HTN (hypertension) Status: Chronic Mildly hypertensive with blood pressure of 153/74. Resume home blood pressure medications. No need for permissive hypertension at this time as patient is approximately 3 weeks outside of initial onset of symptoms. Goal SBP less than 130 Qualifiers: Hypertension type: essential hypertension Qualified Code(s): I10 - Essential (primary) hypertension (4) Hyperlipidemia Status: Chronic Qualifiers: Hyperlipidemia type: unspecified Qualified Code(s): E78.5 - Hyperlipidemia , unspecified (5) Smoker Status: Chronic Current everyday smoking. Discussed smoking cessation. Does not wish to quit at this time. (6) Diabetes Status: Acute Start low-dose sliding scale insulin coverage with before meals and at bedtime Accu-Cheks and diabetic/cardiac diet Qualifiers: Diabetes mellitus type: type 2 Diabetes mellitus complication status: without complication Diabetes mellitus intermediate designer insulin use: with halfway use Qualified Code(s): E11.9 - Type 2 diabetes mellitus without complications ; Z79.4 - custodial (current) use of insulin; Z79.4 - custodial (current) use of insulin; Z79.4 - termite exterminator (current) use of insulin; Z79.4 - termite exterminator ( current) use of insulin (7) DVT prophylaxis Status: Acute Internal Medicine - H&P: HPI Chief complaint: Vision changes, dizziness Admitted From: Home Plans for Post Hospital Care: Home History of present illness: Mr. Xavier is a 67 year old male who presents today from neurology office due to CVA. Patient reports that approximately 2-3 weeks ago he stood up from a seated position and began to feel dizzy and near syncopal. Describing a "sharp wavelike sensation"in his head lasting approximately 15-20 minutes. After symptoms subside and the patient was left with peripheral vision loss and seeing light and dark spots as well as double vision. He reports that he went to see his instructional materials director requested he see his primary care physician and get an MRI. MRI/MRA of head and neck revealed right occipital infarct and right OLDER ADULT SOCIAL WORK SPECIALIST. He reports symptoms are ongoing. Has prior history of aneurysm requiring clipping. No prior history of stroke. Risk factors include HD, HTN, DM, smoking and obesity. Denies any fever, chills, chest pain, shortness of breath , gait changes, falls or trauma. Admits to headaches since symptoms began, a one-time near syncopal event upon initial symptoms, tachycardia, bilateral lower way weakness. Past Med Surg Social Fam HX - Past Medical History Medical history: CVA, diabetes, hyperlipidemia, hypertension, renal disease, other Psychiatric history: depression - Past Surgical History Surgical History: cholecystectomy, other - Social History Smoking Status: Current every day smoker Smokeless Tobacco Status: No Alcohol use: none Drug use: none - Family History Father Hx Family Cardiac Disorders: Yes Mother Living Status: Hx Family Cancer: Yes Brother Hx Family Cardiac Disorders: Yes Hx Family Cancer: Yes Internal Medicine - H&P: Meds Gabapentin [Neurontin] 600 mg PO BID 01/08/16 [History] Glimepiride [Amaryl] 4 mg PO BID 01/08/16 [History] Insulin NPH Human Isophane [Novolin N] 60 unit SQ BID 01/08/16 [History] Insulin Regular, Human [Novolin R] 40 unit SQ TIDWM 01/08/16 [History] Metoprolol XL (24 HR) Succ [Toprol Xl] 50 mg PO DAILY 01/08/16 [History] Omeprazole [PriLOSEC] 40 mg PO DAILY 01/08/16 [History] OxyCODONE/APAP 10/325 [Percocet 10/325 MG] 1 tab PO Q6H PRN 01/08/16 [History] Atorvastatin [Lipitor] 80 mg PO HS #60 tablet 01/09/16 [Rx] amLODIPine [Norvasc] 10 mg PO DAILY #60 tablet 01/09/16 [Rx] DULoxetine [Cymbalta] 30 mg PO BID 05/27/16 [History] Tizanidine HCl 4 mg PO Q8H PRN 05/27/16 [History] Nitroglycerin 0.4 mg SL Q5MIN PRN #25 tab.subl 05/28/16 [Rx] Aspirin 325 mg PO DAILY #30 tablet 05/21/17 [Rx] Clopidogrel [Plavix] 75 mg PO DAILY #30 tablet 05/21/17 [Rx] hydrALAZINE [HydrALAZINE] 25 mg PO Q8HR 05/23/17 [History] 3 Allergy/AdvReac Type Severity Reaction Status Date / Time ciprofloxacin [From Cipro] Allergy Hives Verified 05/21/17 12:06 Sulfa (Sulfonamide Allergy Hives Verified 05/21/17 12:06 Antibiotics) celecoxib AdvReac Nausea Verified 05/21/17 12:06 All Systems PM: A 10-system review of systems was performed and is negative for pertinent findings except as documented above in the HPI. Review of systems: REVIEW OF SYSTEMS GENERAL: Negative for any nausea, vomiting, fevers, chills, or weight loss. NEUROLOGIC: Negative for any blurry vision, blind spots, double vision, facial asymmetry, dysphagia, dysarthria, hemiparesis, hemisensory deficits, vertigo, ataxia. Positive for loss of peripheral vision, seeing dark and light spots and double vision HEENT: Negative for any head trauma, neck trauma, neck stiffness, photophobia, phonophobia, sinusitis, rhinitis. CARDIAC: Negative for any chest pain, dyspnea on exertion, paroxysmal nocturnal dyspnea, peripheral edema. PULMONARY: Negative for any shortness of breath, wheezing, COPD, or TB exposure. GASTROINTESTINAL: Negative for any abdominal pain, nausea, vomiting, bright red blood per rectum, melena. GENITOURINARY: Negative for any dysuria, hematuria, incontinence. Still makes urine INTEGUMENTARY: Negative for any rashes, cuts, insect bites. RHEUMATOLOGIC: Negative for any joint pains, photosensitive rashes, history of vasculitis or kidney problems. HEMATOLOGIC: Negative for any abnormal bruising, frequent infections or bleeding. - Constitutional Vitals: Temp Pulse Resp BP Pulse Ox 97.1 F L 93 16 153/73 97 05/23/17 08:55 05/23/17 11:13 05/23/17 11:13 05/23/17 11:13 05/23/17 11:13 Exam: PHYSICAL EXAMINATION: GENERAL: The patient is a well-developed, well-nourished male in no apparent distress. He is alert and oriented x3. VITAL SIGNS: Temperature 98.4, pulse 72, respirations 18, blood pressure 146/78 , and O2 saturation 96% on room air. HEENT: Head is normocephalic and atraumatic. Extraocular muscles are intact. Pupils are equal, round, and reactive to light and accommodation. Nares appeared normal. Mouth is well hydrated and without lesions. Mucous membranes are moist. Posterior pharynx clear of any exudate or lesions. NECK: Supple. No carotid bruits. No lymphadenopathy or thyromegaly. LUNGS: Clear to auscultation. HEART: Irregularly irregular rhythm concern for atrial fibrillation. without murmur. ABDOMEN: Soft, nontender, and nondistended. Positive bowel sounds. No hepatosplenomegaly was noted. EXTREMITIES: Without any cyanosis, clubbing, rash, lesions or edema. NEUROLOGIC: Patient has peripheral vision loss and blurred vision on left side, otherwise cranial nerves II-12 intact PSYCHIATRIC: Flat affect, but denies suicidal or homicidal ideations. SKIN: No ulceration or induration present. - Expanded Neurological Exam Neurological exam expanded: Absent: ataxia, expressive aphasia, inattentive, memory loss-recent event, receptive aphasia Patient oriented to: Present: person, place, time Speech: Present: fluid speech Cranial Nerves: gag reflex PM: Normal, nystagmus PM: Normal, tongue deviation PM : Normal Cerebellar function: finger to nose: Abnormal Left, Abnormal Right, heel to forte : Normal, Romberg: Normal Upper motor neuron: Babinski sign: Normal, Josh neglect: Normal, pronator drift : Normal, sensory extinction: Normal Neuro motor strength exam: LUE: 5, RUE: 5, LLE: 5, RLE: 5 Coma Scale Eye Opening: Spontaneous Coma Scale Motor Response: Obeys Commands Coma Scale Verbal Response: Oriented Coma Scale Total: 15 Internal Med - H&P Results - Labs CBC & Chem 7: 05/23/17 09:47 05/23/17 09:47 Labs: Short CBC 05/23/17 Range/Units 09:47 WBC 12.0 H (4.3-11.1) K/mcL Hgb 15.0 (12.9-16.9) g/dL Hct 44.6 (37.5-50.1) % Plt Count 262 (140-400) K/mcL Neutrophils # 8.5 (1.6-8.9) K/mcL BMP 05/23/17 09:47 Sodium 134 L Potassium 4.5 Chloride 107 Carbon Dioxide 23 BUN 32 H Creatinine 3.76 H Glucose 243 H Calcium 8.5 L Cardiac Enzymes 05/23/17 Range/Units 09:47 Troponin I < 0.03 (< 0.04) ng/mL - Impressions ITS Impressions Chest X-Ray 05/23/17 09:26 IMPRESSION: No acute process. D/ / Caleb Rodrigez MD / Caleb Rodrigez MD Interpreting Provider: Caleb Rodrigez MD - Diagnostic Studies MRI - head Status: image reviewed by me Additional comments: Acute right occipital lobe infarct of right OLDER ADULT SOCIAL WORK SPECIALIST There is occlusion of the distal right OLDER ADULT SOCIAL WORK SPECIALIST at P4 segment <Brenda Maciel - Last Filed: 06/21/17 09:03> Date of Encounter: 06/21/17 Internal Medicine - H&P: HPI History of present illness: Mr. Xavier is a 67 year old male All Systems PM: A 10-system review of systems was performed and is negative for pertinent findings except as documented above in the HPI. - Constitutional Vitals: Temp Pulse Resp BP Pulse Ox 97.6 F 86 16 174/95 94 05/25/17 06:49 05/25/17 06:49 05/25/17 06:49 05/25/17 06:49 05/25/17 06:49 Internal Med - H&P Results - Labs CBC & Chem 7: 05/24/17 04:24 05/25/17 03:50 - Attending Attestation I personally and independently interviewed and examined the patient with EXECUTIVE SALES MANAGER, and I reviewed the patient's medical record with her. I am in agreement with the assessment and proposed treatment plan. I discussed my findings and recommendation with the patient and answer all questions. The patient's medical records were edited to accurately reflect this encounter.
[2017-05-23] MEDS ORDERED: tiZANidine 4 MG TABLET PO PRN (11:55)
[2017-05-23] MEDS ORDERED: Nitroglycerin 0.4 MG TAB.SUBL SL PRN (11:55)
[2017-05-23] MEDS ORDERED: Naloxone 0.4 MG/ML INJ IVP PRN (11:58)
[2017-05-23] MEDS ORDERED: D5% in Water 1,000 ML IVC PRN (11:58)
[2017-05-23] MEDS ORDERED: *HR* Dextrose 50 % in Water (Syg) 50 ML SYRINGE IVP PRN (11:58)
[2017-05-23] MEDS ORDERED: Dextrose Gel 15 GM/37.5 ML TUBE PO PRN ×2 (11:58)
[2017-05-23] MEDS: Insulin LISPRO 300 UNITS/3 ML VIAL SQ SCH (16:58)
[2017-05-23] MEDS: hydrALAZINE 25 MG TABLET PO SCH ×2 (16:58→23:47)
[2017-05-23] MEDS: *HR* Heparin 5,000 UNIT/ML VIAL SQ SCH (16:59)
[2017-05-23] MEDS: Gabapentin 300 MG CAPSULE PO SCH (20:51)
[2017-05-23] MEDS ORDERED: Insulin LISPRO 300 UNITS/3 ML VIAL SQ SCH (21:00)
[2017-05-23] MEDS: *HR* OxyCODONE/APAP 10/325 TABLET PO PRN (21:01)
[2017-05-24 04:49] LABS: Hematocrit 40.9 % (37.5-50.1); Hemoglobin 13.5 g/dL (12.9-16.9); Mean Corpuscular Hemoglobin 29.4 pg (28.0-33.3); Mean Corpuscular Volume 89.1 fL (83.0-100.0); Platelet Count 222 K/mcL (140-400); Red Blood Count 4.59 M/mcL (4.19-5.50); Red Cell Distribution Width 13.7 % (11.5-14.5)
[2017-05-24 05:00] LABS: Calcium 8.3 mg/dL (8.6-10.3); Chol/HDL Ratio 5.1 (0-4.9); Potassium 4.2 mEq/L (3.5-5.1)
[2017-05-24] MEDS: *HR* Heparin 5,000 UNIT/ML VIAL SQ SCH ×2 (05:00→16:48)
[2017-05-24] MEDS: Insulin LISPRO 300 UNITS/3 ML VIAL SQ SCH ×2 (07:54→11:46)
[2017-05-24] MEDS: Gabapentin 300 MG CAPSULE PO SCH ×2 (07:55→20:04)
[2017-05-24] MEDS: Metoprolol XL (24 HR) Succ 50 MG TAB.ER.24H PO SCH (07:55)
[2017-05-24] MEDS: hydrALAZINE 25 MG TABLET PO SCH ×2 (07:55→16:48)
[2017-05-24] MEDS: Aspirin 325 MG TABLET PO SCH (07:55)
[2017-05-24] MEDS: amLODIPine 5 MG TABLET PO SCH (07:55)
[2017-05-24] MEDS: *HR* OxyCODONE/APAP 10/325 TABLET PO PRN ×2 (07:55→20:13)
--- NOTE | 2017-05-24 09:02 | Neurology Progress Note ---
Date of Encounter: 05/24/17 Time of Encounter: 09:00 Assessment and Plan (1) Occipital cerebral infarction Current Visit: No Status: Acute Right occipital lobe infarct, likely secondary to right CONVEYOR TECHNICIAN occlusion at P4 segment. This could be secondary to embolic or occlusive pathology. Patient has irregular sinus rhythm and would recommend Holter monitoring and may be loop recording Recommend holter monitoring and cardiology consultation as an outpatient. Keep on Aspirin and Plavix for now. If Echo returns negative then okay to discharge home. Continue statin therapy. Risk factor modification for CVA. (2) Stroke due to occlusion of right posterior cerebral artery Current Visit: Yes Status: Acute Subjective Principal diagnosis: CVA Interval history: 67 year old man with PMH significant for new CVA with visual field deficits, history of HTN, CKD who was admitted yesterday for stroke work up. He is feeling fine, with left sided hemianopia but this occurred more than one week. He completed echocardiography pending results. He has irregular heart beat and was admitted for evaluation for possible cardiac dsyarrhyhtmia that may require more aggressive treatment. EKG showed irregular sinus rhythm. Currently per medical team no evidence of atrial fibrillation identified. Objective - Constitutional Vitals: Temp Pulse Resp BP Pulse Ox 98.0 F 81 18 173/68 95 05/24/17 07:08 05/24/17 07:08 05/24/17 07:08 05/24/17 07:08 05/24/17 07:08 Results - Laboratory Findings CBC and BMP: 05/24/17 04:24 05/24/17 04:24 Abnormal lab findings: Abnormal lab results Sodium 135 mEq/L (136-145) L 05/24/17 04:24 Carbon Dioxide 22 mEq/L (23-29) L 05/24/17 04:24 BUN 34 mg/dL (8-23) H 05/24/17 04:24 Creatinine 3.58 mg/dL (0.70-1.30) H 05/24/17 04:24 Est GFR ( Amer) 21 (> 60) L 05/24/17 04:24 Est GFR (Non-Af Amer) 17 (> 60) L 05/24/17 04:24 Glucose 256 mg/dL (70-105) H 05/24/17 04:24 POC Glucose 297 (58-89) H 05/23/17 21:06 Calcium 8.3 mg/dL (8.6-10.3) L 05/24/17 04:24 Triglycerides 368 mg/dL (< 150) H 05/24/17 04:24 VLDL Cholesterol, Calc 74 mg/dL (< 31) H 05/24/17 04:24 HDL Cholesterol 25 mg/dL (40-59) L 05/24/17 04:24 Cholesterol/HDL Ratio 5.1 (0-4.9) H 05/24/17 04:24 Consult Discharge Plan - Plan Referrals: Tico Thompson MD [Primary Care Provider] -
--- NOTE | 2017-05-24 09:14 | Electrocardiograph Report ---
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
[2017-05-24 09:20] LABS: Hemoglobin A1C 10.4 %
[2017-05-24] MEDS: 0.9 % Sodium Chloride 1,000 ML IVC SCH (12:52)
--- NOTE | 2017-05-24 14:35 | Internal Med Progress Note ---
Date of Encounter: 05/24/17 Time of Encounter: 14:24 - Assessment and plan (1) CVA (cerebral vascular accident) Current Visit: Yes Status: Acute Assessment and plan: presented 05/21/2017 with complaints of left eye vision changes. Brain MRI with acute right occipital lobe infarct in the R LOCAL TRUCK DRIVER distribution. Evaluated by Neurology who suspects secondary to right LOCAL TRUCK DRIVER occlusion at P4 segment; could be secondary to embolic or occlusive pathology. No other neurological deficit other than left visual field deficit. Heart rate noted to be irregular at times , will need Holter monitoring and discharge with outpatient cardiology consultation for possible loop recording. Continue ASA, Plavix, statin. Echo pending Qualifiers: CVA mechanism: occlusion Precerebral and cerebral artery: posterior cerebral artery Laterality of affected vessel: right Qualified Code(s): I63.531 - Cerebral infarction due to unspecified occlusion or stenosis of right posterior cerebral artery (2) Rayaw-jh-podnenf kidney injury Current Visit: No Status: Acute Assessment and plan: follows with allergy. Creatinine 3.7 on admission which appears worse than baseline. Stop home Lasix, gentle IV fluids. Nephrology consulted Qualifiers: Chronic kidney disease stage: stage 4 (severe) Qualified Code(s): N17.9 - Acute kidney failure, unspecified; N18.4 - Chronic kidney disease, stage 4 ( severe); N18.4 - Chronic kidney disease, stage 4 (severe); N18.4 - Chronic kidney disease, stage 4 (severe); N18.4 - Chronic kidney disease, stage 4 ( severe) (3) Diabetes Current Visit: Yes Status: Acute Assessment and plan: uncontrolled. Hgb A1c 10.4%. Resume oral hypoglycemics. Continue home NPH and prandial insulin at lower doses as diet likely restricted. Monitor blood sugar and titrate PRN Qualifiers: Diabetes mellitus type: type 2 Diabetes mellitus complication status: without complication Diabetes mellitus intermediate insulin use: with exterminator termite use Qualified Code(s): E11.9 - Type 2 diabetes mellitus without complications ; Z79.4 - nursing home (current) use of insulin; Z79.4 - vermin exterminator (current) use of insulin; Z79.4 - vermin exterminator (current) use of insulin; Z79.4 - nursing home ( current) use of insulin (4) HTN (hypertension) Current Visit: Yes Status: Chronic Assessment and plan: per hx. BP variable but acceptable. Cont home BP medications. Monitor BP and titrate PRN Qualifiers: Hypertension type: essential hypertension Qualified Code(s): I10 - Essential (primary) hypertension (5) DVT prophylaxis Current Visit: Yes Status: Acute Assessment and plan: heparin - Time Spent With Patient less than 15 minutes - Subjective Interval history: Seen and examined at bedside; patient is new to me, information obtained from chart review and patient report. Still with left visual field deficit otherwise he has no complaints. He actually wants to go home today. I discussed with him my concern regarding his renal function and he is agreeable to stay overnight for nephrology consultation. No numbness or tingling, no extremity weakness, no slurred speech. - Constitutional Vitals: Temp Pulse Resp BP Pulse Ox 97.6 F 78 16 147/66 92 05/24/17 11:40 05/24/17 13:01 05/24/17 13:01 05/24/17 13:01 05/24/17 13:01 General appearance: Present: A&O X 3, morbidly obese - Head Head exam: Present: atraumatic, normocephalic - Eye Eye exam: Present: PERRL, conjuntiva pink, sclera anicteric Pupils: Present: PERRL - Neck Neck exam general surgery: Present: supple, trachea midline. Absent: lymphadenopathy - Respiratory Respiratory exam: Present: CTAB. Absent: accessory muscle use, rales, rhonchi, wheezes - Cardiovascular Cardiovascular exam: Present: RRR, +S1, +S2. Absent: diastolic murmur, gallop, rubs, systolic murmur - GI/Abdominal GI/Abdominal exam: Present: normal bowel sounds, soft, no peritoneal signs. Absent: distended, tenderness - Extremities Exam Extremities exam: Present: warm, radial pulses palpable and symmetrical. Absent : calf tenderness, cyanotic, pedal edema - Neurological Exam Neurological exam: Present: CN II-XII intact, oriented X3, no focal deficits. Absent: pronater drift, facial droop, speech deficit Additional comments: left visual field deficit - Skin Skin exam: Present: dry, intact Internal Medicine: Result - Labs CBC & Chem 7: 05/24/17 04:24 05/24/17 04:24 Labs: Short CBC 05/24/17 Range/Units 04:24 WBC 8.7 (4.3-11.1) K/mcL Hgb 13.5 D (12.9-16.9) g/dL Hct 40.9 (37.5-50.1) % Plt Count 222 (140-400) K/mcL [facility] 05/24/17 04:24 Sodium 135 L Potassium 4.2 Chloride 106 Carbon Dioxide 22 L BUN 34 H Creatinine 3.58 H Glucose 256 H Calcium 8.3 L Cardiac Enzymes 05/23/17 Range/Units 16:08 Troponin I < 0.03 (< 0.04) ng/mL - ABG Interpretation ABG results: PT/INR, D-dimer PT 9.9 Seconds (9.4-12.1) 05/23/17 09:47 - Impressions Impressions Echocardiogram 05/23/17 11:57 Impressions: LVEF 60%. Mild left ventricular diastolic dysfunction. Normal right ventricular structure and function. No significant valvular dysfunction. No pulmonary hypertension. No PFO with saline contrast injection. Left Ventricular Wall Motion: Rest Echo Findings The mid inferior lateral and basal inferior lateral cline were not visualized. All other wall segments showed normal motion. Findings: Study Quality * Technically sub-optimal due to body habitus. ECG Findings * Normal sinus rhythm with ventricular ectopy. Left Ventricle * LVEF 60%. * Mild left ventricular diastolic dysfunction. * LV size and wall thickness measurements were not well obtained. Right Ventricle * Normal right ventricular structure and function. Left Atrium * Normal left atrial size. Right Atrium * Normal right atrial size. Aortic Valve * No aortic regurgitation. * Aortic valve not well visualized. * No aortic stenosis. Mitral Valve * Normal mitral valve structure. * No mitral stenosis. * Trace mitral regurgitation. Tricuspid Valve * Tricuspid valve not well visualized. * No tricuspid regurgitation. * Estimated RA pressure is 3 mmHg. * Estimated RVSP is 16 mmHg. * No pulmonary hypertension. Pulmonic Valve * Pulmonic valve is not well visualized. * No pulmonic stenosis. * No pulmonic regurgitation. Pulmonary Artery * Pulmonary artery not well visualized. Aorta * Normally sized aortic root. Pericardium * There is no pericardial effusion present. Interatrial Septum * No evidence of PFO with agitated saline contrast. IVC * Normal IVC dimensions and inspiratory collapse. Consult Discharge Plan - Plan Referrals: Tico Thompson MD [Primary Care Provider] - Garrison Brannon DO [Non-Partnered Physician] -
[2017-05-24] MEDS ORDERED: Insulin Regular, Human 100 UNIT/ML SQ SCH (17:00)
[2017-05-24] MEDS: Insulin Regular, Human 100 UNIT/ML SQ SCH (18:07)
[2017-05-24] MEDS: Insulin NPH 100 UNIT/ML (x5UNIT) SQ SCH (18:07)
--- NOTE | 2017-05-24 19:28 | Electrocardiograph Report ---
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
[2017-05-25] MEDS: hydrALAZINE 25 MG TABLET PO SCH ×2 (00:35→08:32)
[2017-05-25] MEDS: 0.9 % Sodium Chloride 1,000 ML IVC SCH (02:26)
[2017-05-25 04:35] LABS: Potassium 4.1 mEq/L (3.5-5.1)
[2017-05-25 06:03] LABS: Albumin 3.3 g/dL (3.5-5.7); Albumin/Globulin Ratio 1.1 (1.1-2.2); Bilirubin,Total 0.3 mg/dL (0.3-1.0); Calcium 8.4 mg/dL (8.6-10.3); Globulin 3.1 g/dL (2.4-3.5); Total Protein 6.4 g/dL (6.4-8.9)
[2017-05-25] MEDS: *HR* Heparin 5,000 UNIT/ML VIAL SQ SCH (06:40)
[2017-05-25 06:56] VITALS: BP 174/95
[2017-05-25] MEDS: amLODIPine 5 MG TABLET PO SCH (08:32)
[2017-05-25] MEDS: Aspirin 325 MG TABLET PO SCH (08:32)
[2017-05-25] MEDS: Gabapentin 300 MG CAPSULE PO SCH (08:32)
[2017-05-25] MEDS: Insulin NPH 100 UNIT/ML (x5UNIT) SQ SCH (08:32)
[2017-05-25] MEDS: Metoprolol XL (24 HR) Succ 50 MG TAB.ER.24H PO SCH (08:33)
[2017-05-25] MEDS: Insulin Regular, Human 100 UNIT/ML SQ SCH (09:59)
--- NOTE | 2017-05-25 10:01 | Discharge Summary ---
Date of Encounter: 05/25/17 Time of Encounter: 09:55 - Discharge Diagnosis (1) CVA (cerebral vascular accident) Priority: Primary Status: Acute Comments: presented 05/21/2017 with complaints of left eye vision changes. Brain MRI with acute right occipital lobe infarct in the R DEPUTY DIRECTOR OF FINANCE distribution. Evaluated by Neurology who suspects infarct secondary to right DEPUTY DIRECTOR OF FINANCE occlusion at P4 segment; concerning for embolic or occlusive pathology. TTE with EF 60%, mild diastolic dysfunction, no PFO or cardiac source of emboli. Hgb A1c 10.4%, LDL 128. No other neurological deficit other than left visual field deficit. Heart rate noted to be irregular at times; no evidence of A. fib on playground monitor. 48 hour Holter monitor at discharge. Will need to follow-up with cardiology outpatient for possible loop recorder. Continue ASA, Plavix, statin Qualifiers: CVA mechanism: occlusion Precerebral and cerebral artery: posterior cerebral artery Laterality of affected vessel: right Qualified Code(s): I63.531 - Cerebral infarction due to unspecified occlusion or stenosis of right posterior cerebral artery (2) Pofji-[id number] kidney injury Priority: Primary Status: Acute Comments: per hx. Follows with Nephrology. Cr 3.7, GFR 19 which appeared slightly worse than baseline. Home Lasix stopped and gentle IV fluids provided with no improvement in renal function. Renal ultrasound with no obstructive uropathy. Evaluated by Nephrology who suspected worsening renal function secondary to decreased oral intake and diuretics. Ideally would like for patient to stay overnight for IV fluids and monitor repeat renal function however patient is declining; prefers to follow up outpatient with nephrology. Follow-up Nephrology appt requested Qualifiers: Chronic kidney disease stage: stage 4 (severe) Qualified Code(s): N17.9 - Acute kidney failure, unspecified; N18.4 - Chronic kidney disease, stage 4 ( severe); N18.4 - Chronic kidney disease, stage 4 (severe); N18.4 - Chronic kidney disease, stage 4 (severe); N18.4 - Chronic kidney disease, stage 4 ( severe) (3) HTN (hypertension) Priority: Primary Status: Acute Comments: per hx. BP variable with SBP's in 160s to 170s at times. Patient advised to monitor BP at home and contact PCP/senior it business analyst if S BP consistently over 150. Cont home BP medications. Qualifiers: Hypertension type: essential hypertension Qualified Code(s): I10 - Essential (primary) hypertension (4) Diabetes Priority: Primary Status: Acute Comments: uncontrolled. Hgb A1c 10.4%. Suspect secondary to dietary noncompliance. Counseled at length regarding the importance of tight glycemic control. Continue home oral hypoglycemics and insulin regimen. Follow-up with PCP. Qualifiers: Diabetes mellitus type: type 2 Diabetes mellitus complication status: without complication Diabetes mellitus correction insulin use: with intermediate project manager use Qualified Code(s): E11.9 - Type 2 diabetes mellitus without complications ; Z79.4 - intermediate frame tender (current) use of insulin; Z79.4 - intermediate frame tender (current) use of insulin; Z79.4 - intermediate frame tender (current) use of insulin; Z79.4 - FPC ( current) use of insulin - Discharge Medications Home Medications: Gabapentin [Neurontin] 600 mg PO BID 01/08/16 [History] Glimepiride [Amaryl] 4 mg PO BID 01/08/16 [History] Insulin NPH Human Isophane [Novolin N] 60 unit SQ BID 01/08/16 [History] Insulin Regular, Human [Novolin R] 40 unit SQ TIDWM 01/08/16 [History] Metoprolol XL (24 HR) Succ [Toprol Xl] 50 mg PO DAILY 01/08/16 [History] Omeprazole [PriLOSEC] 40 mg PO DAILY 01/08/16 [History] OxyCODONE/APAP 10/325 [Percocet 10/325 MG] 1 tab PO Q6H PRN 01/08/16 [History] Atorvastatin [Lipitor] 80 mg PO HS #60 tablet 01/09/16 [Rx] amLODIPine [Norvasc] 10 mg PO DAILY #60 tablet 01/09/16 [Rx] DULoxetine [Cymbalta] 30 mg PO BID 05/27/16 [History] Tizanidine HCl 4 mg PO Q8H PRN 05/27/16 [History] Nitroglycerin 0.4 mg SL Q5MIN PRN #25 tab.subl 05/28/16 [Rx] Aspirin 325 mg PO DAILY #30 tablet 05/21/17 [Rx] Clopidogrel [Plavix] 75 mg PO DAILY #30 tablet 05/21/17 [Rx] hydrALAZINE [HydrALAZINE] 25 mg PO Q8HR 05/23/17 [History] Allergies/Adverse Reactions: 3 Allergy/AdvReac Type Severity Reaction Status Date / Time ciprofloxacin [From Cipro] Allergy Hives Verified 05/21/17 12:06 Sulfa (Sulfonamide Allergy Hives Verified 05/21/17 12:06 Antibiotics) celecoxib AdvReac Nausea Verified 05/21/17 12:06 Date of admission: 05/24/17 14:58 Primary care physician: Tico Thompson MD Discharging clinician: Rebecca Reeder Anticipated date of discharge: 05/25/17 - Patient Status Disposition: Home, Self-Care Condition: Good Functional capacity at discharge: independent ambulation Overall status at discharge: patient is back to baseline - Discharge Instructions Instructions: Holter Monitoring (DC), Chronic Kidney Disease (DC), Diabetes Mellitus Type 2 in Adults (DC), Ischemic Stroke (DC), Hypertension (DC), Diabetic Kidney Disease (DC) Follow Up With: Garrison Brannon DO [Non-Partnered Physician] - (Please call within 24 hours or the next business day to schedule a follow-up appointment. You should have labs drawn to monitor renal function within 3-5 days) Yovany Tejada DO [Partnered Physician] - (Please call for a follow-up appointment within 24 hours for the next business day to evaluate for possible loop recorder ) Tico Thompson MD [Primary Care Provider] - (Please call for follow-up appointment within 2-3 weeks.) - Diet and Activity Activity: increase activity as tolerated Diet: diabetic diet, low fat, low cholesterol Interval History: Seen and examined at bedside; says he had an uneventful night and wants to go home today. I advised patient that his renal function is actually slightly worsened and I would prefer that he stay overnight for continued IV fluids and monitoring renal function in the morning however he is refusing. States he wants to go home and will follow-up with nephrology outpatient. Still with left eye visual defect otherwise at baseline. No paresthesias, no weakness, no slurred speech, no headache. No chest pain or shortness of breath. Denies palpitations. Educated at length regarding importance of dietary compliance regarding diabetes and need for tight glycemic control. Patient states his blood sugars are always up and down. Strongly encouraged dietary compliance. He is aware of need to follow up with nephrology, neurology and cardiology. Hospital course: See assessment and plan for hospital course - Time Spent with Patient Total time spent providing and/or coordinating discharge services: Greater than 30 minutes (48 minutes spent on discharge) - Constitutional Vitals: Temp Pulse Resp BP Pulse Ox 97.6 F 86 16 174/95 94 05/25/17 06:49 05/25/17 06:49 05/25/17 06:49 05/25/17 06:49 05/25/17 06:49 General appearance: Present: A&O X 3, morbidly obese - Head Head exam: Present: atraumatic, normocephalic - Eye Eye exam: Present: PERRL, conjuntiva pink, sclera anicteric Pupils: Present: PERRL - Neck Neck exam general surgery: Present: supple, trachea midline. Absent: lymphadenopathy - Respiratory Respiratory exam: Present: CTAB. Absent: accessory muscle use, rales, rhonchi, wheezes - Cardiovascular Cardiovascular exam: Present: RRR, +S1, +S2. Absent: diastolic murmur, gallop, rubs, systolic murmur - GI/Abdominal GI/Abdominal exam: Present: normal bowel sounds, soft, no peritoneal signs. Absent: distended, tenderness - Extremities Exam Extremities exam: Present: warm, radial pulses palpable and symmetrical. Absent : calf tenderness, cyanotic, pedal edema - Neurological Exam Neurological exam: Present: CN II-XII intact, oriented X3, no focal deficits. Absent: pronater drift, facial droop, speech deficit Additional comments: left homonymous hemianopsia - Skin Skin exam: Present: dry, intact
--- NOTE | 2017-05-25 10:49 | Nephrology Consult Note ---
Date of Encounter: 05/25/17 Time of Encounter: 09:30 Assessment and Plan (1) [id number] kidney injury Current Visit: No Status: Acute [place] superimposed on CKD 4 most likely related to decreased oral intake and diuretics. Agree with 0.9 NS at 75cc/hr., though patient wants to go home. No obstructive uropathy on Renal US. Diuretic stopped. I&O. Avoid nephrotoxins. If discharged will follow in office. with labs done early next week. Qualifiers: Chronic kidney disease stage: stage 4 (severe) Qualified Code(s): N17.9 - Acute kidney failure, unspecified; N18.4 - Chronic kidney disease, stage 4 ( severe); N18.4 - Chronic kidney disease, stage 4 (severe); N18.4 - Chronic kidney disease, stage 4 (severe); N18.4 - Chronic kidney disease, stage 4 ( severe) History of Present Illness - Reason for Consult Acute Kidney Injury - History of Present Illness Mr. Xavier is a 67 year old male well known to practice with CKD 4, baseline creat for past year 2.5-3.0. Last seen in office about 6 months ago though was to be seen at 4 month intervals. Other PMH-CVA, diabetes, hyperlipidemia, hypertension, cholecystectomy, multiple renal stone events. Mr. Xavier states had CVA last week and refused hospital admission at that time. MRA without contrast on 05/21-acute right occiptal lobe infarct. However did come back to hospital at encouragement of neurology whom he saw outpatient. Per neurology note-Right occipital lobe infarct, likely secondary to right LANDSCAPE ARCHITECT occlusion at P4 segment. He states he continues to have left visual disturbance. His renal fct was noted to be worse than baseline with creat 3,76 on . Today creat 3.61. Patient denies any nausea, vomiting or diarrhea. Denies NSAID use. Does admit renal stone event approximately one week ago though he does not know if he passed stone. States he has had multiple renal stone events in past. He does admit decreased appetite and oral intake last week with "renal stone" event. He also states had been on Lasix 20mg for past two months for LE swelling, prescribed by PCP, which has since been stopped due to worsening renal fct. Renal US done yesterday did not reveal any renal stones or obstructive uropathy. Past Med Surg Social Fam HX - Past Medical History Medical history: CVA, diabetes, hyperlipidemia, hypertension, renal disease, other Psychiatric history: depression - Past Surgical History Surgical History: cholecystectomy, other - Social History Smoking Status: Current every day smoker Smokeless Tobacco Status: No Alcohol use: none Drug use: none - Family History Father Hx Family Cardiac Disorders: Yes Mother Living Status: Hx Family Cancer: Yes Brother Hx Family Cardiac Disorders: Yes Hx Family Cancer: Yes Medications and Allergies Gabapentin [Neurontin] 600 mg PO BID 01/08/16 [History] Glimepiride [Amaryl] 4 mg PO BID 01/08/16 [History] Insulin NPH Human Isophane [Novolin N] 60 unit SQ BID 01/08/16 [History] Insulin Regular, Human [Novolin R] 40 unit SQ TIDWM 01/08/16 [History] Metoprolol XL (24 HR) Succ [Toprol Xl] 50 mg PO DAILY 01/08/16 [History] Omeprazole [PriLOSEC] 40 mg PO DAILY 01/08/16 [History] OxyCODONE/APAP 10/325 [Percocet 10/325 MG] 1 tab PO Q6H PRN 01/08/16 [History] Atorvastatin [Lipitor] 80 mg PO HS #60 tablet 01/09/16 [Rx] amLODIPine [Norvasc] 10 mg PO DAILY #60 tablet 01/09/16 [Rx] DULoxetine [Cymbalta] 30 mg PO BID 05/27/16 [History] Tizanidine HCl 4 mg PO Q8H PRN 05/27/16 [History] Nitroglycerin 0.4 mg SL Q5MIN PRN #25 tab.subl 05/28/16 [Rx] Aspirin 325 mg PO DAILY #30 tablet 05/21/17 [Rx] Clopidogrel [Plavix] 75 mg PO DAILY #30 tablet 05/21/17 [Rx] hydrALAZINE [HydrALAZINE] 25 mg PO Q8HR 05/23/17 [History] 3 Allergy/AdvReac Type Severity Reaction Status Date / Time ciprofloxacin [From Cipro] Allergy Hives Verified 05/21/17 12:06 Sulfa (Sulfonamide Allergy Hives Verified 05/21/17 12:06 Antibiotics) celecoxib AdvReac Nausea Verified 05/21/17 12:06 Review of Systems All Systems: reviewed and no additional remarkable complaints except as stated Exam - Vital Signs Vital signs: Initial Vital Signs Temp Pulse Resp BP Pulse Ox 97.1 F L 68 18 168/74 97 05/23/17 08:55 05/23/17 08:55 05/23/17 08:55 05/23/17 08:55 05/23/17 08:55 Vital Signs - Last 8 Hours Temp Pulse Resp BP Pulse Ox 05/25/17 06:49 97.6 F 86 16 174/95 94 05/25/17 03:42 98.2 F 59 16 152/60 94 Intake and Output 05/24/17 05/25/17 05/25/17 23:59 07:59 15:59 Intake Total 910 / 910 240 / 240 Balance 910 / 910 240 / 240 Intake: IV Fluids 910 / 910 0.9 % Sodium Chloride 1,000 ML 910 / 910 @ 75 mls/hr IVC .[id number] [facility] Rx #:[id number] Oral 240 / 240 Other: Meal Breakfast Percent of Meal Consumed 100% Weight 118.887 kg Blood Glucose* 214 110 Patient Weight 05/25/17 23:59 Weight 118.887 kg - General Appearance General appearance: well-developed, well-nourished, appears started age, obese EENT: mucous membranes moist Neck: no JVD Respiratory: clear Cardiology: no edema, irregular rhythm Gastrointestinal: normoactive bowel sounds, no tenderness, no guarding Integumentary: warm and dry Neurologic: alert and oriented x3 Psychiatric: mood/affect appropriate, cooperative Results - Lab Results 05/24/17 04:24 05/25/17 03:50 Most recent lab results Calcium 8.4 mg/dL (8.6-10.3) L 05/25/17 03:50 Consult Discharge Plan - Plan Instructions: Holter Monitoring (DC), Chronic Kidney Disease (DC), Diabetes Mellitus Type 2 in Adults (DC), Ischemic Stroke (DC), Hypertension (DC), Diabetic Kidney Disease (DC) Referrals: Tico Thompson MD [Primary Care Provider] - Garrison Brannon DO [Non-Partnered Physician] - Yovany Tejada DO [Partnered Physician] - (New acute CVA concerning for possible embolic source. Heart rate irregular at times. EKG with normal sinus rhythm, RBBB. No evidence of A. fib on telemetry. Discharging home with Holter monitor. ?need for loop recording)
== END 2017-05-25 12:50 | disposition home or self-care (01) | DRG 65 ==
LOC: EMEROO 08:54 → 3BNU 08:54
PROVIDERS: ADMIT Internal Medicine Nephrology; ATTEND Registered Nurse

== ENCOUNTER 2017-11-14 08:59 | Inpatient (IN) ==
[2017-11-14 09:51] LABS: Basophils # 0.1 K/mcL (0.0-0.2); Basophils % 0.9 %; Eosinophils # 0.4 K/mcL (0.0-0.6); Eosinophils % 3.2 %; Hematocrit 43.8 % (37.5-50.1); Hemoglobin 15.1 g/dL (12.9-16.9); Immature Granulocytes % 0.9 % (0-4); Lymphocytes # 2.5 K/mcL (0.6-4.6); Lymphocytes % 19.7 %; Mean Corpuscular HGB Conc 34.5 g/dL (31.6-35.5); Mean Corpuscular Hemoglobin 31.5 pg (28.0-33.3); Mean Corpuscular Volume 91.4 fL (83.0-100.0); Mean Platelet Volume 9.6 fL (9.4-12.4); Monocytes # 0.8 K/mcL (0.0-1.3); Monocytes % 6.3 %; Neutrophils # 8.6 K/mcL (1.6-8.9); Platelet Count 239 K/mcL (140-400); Red Blood Count 4.79 M/mcL (4.19-5.50); Red Cell Distribution Width 13.4 % (11.5-14.5)
--- NOTE | 2017-11-14 09:56 | Emergency Department Note ---
Disposition Clinical Impression: Dizziness Disposition: Admitted As Inpatient Condition: Fair Referrals: Tico Thompson MD [Primary Care Provider] - Dizziness HPI - General Chief Complaint: ED Dizziness Stated Complaint: DIzzy/Don't feel like I'm Breathing Time Seen by Provider: 11/14/17 09:10 Source: patient Mode of arrival: ambulatory Limitations: no limitations Nursing Notes Reviewed: Yes Vital Signs Reviewed: Yes - History of Present Illness HPI Narrative: 67yo male with past medical history of hypertension, diabetes, stroke, lung cancer, CKD presented to [facility] complaining of dizziness. He reported that he has had intermittent dizziness since his last stroke in April 2017, however yesterday afternoon he had increased dizziness while working on his lawnmower which never resolved and then this morning he woke up with more intense dizziness and nausea. He describes the dizziness as him moving. He denies chest pain, shortness of breath, abdominal pain, fever, chills, syncope, headache, palpitations. Reports that his symptoms now are different from when he had a stroke. He is currently taking Plavix. He denies trauma, falls, recent surgery. He was recently diagnosed with lung cancer a week ago and follows with Dr. Cabrera and that the cancer center. - Related Data Home Medications Medication Instructions Recorded Confirmed Gabapentin [Neurontin] 600 mg PO BID 01/08/16 11/08/17 Glimepiride [Amaryl] 8 mg PO DAILY 01/08/16 11/08/17 Metoprolol XL (24 HR) Succ [Toprol 50 mg PO DAILY 01/08/16 11/08/17 Xl] Omeprazole [PriLOSEC] 40 mg PO DAILY 01/08/16 11/08/17 OxyCODONE/APAP 10/325 [Percocet 1 tab PO Q6H PRN 01/08/16 11/08/17 10/325 MG] Tizanidine HCl 4 mg PO Q8H PRN 05/27/16 11/08/17 CloNIDine HCl [Kapvay] 0.1 mg PO HS 09/12/17 11/08/17 Mometasone Furoate [Nasonex] 2 spray IH DAILY 09/12/17 11/08/17 Albuterol Sulfate [Ventolin Hfa] 2 puff IH Q4H PRN 11/14/17 11/14/17 Hydralazine HCl 50 mg PO TID 11/14/17 11/14/17 Insulin NPH Human Isophane 60 unit SQ BID 11/14/17 11/14/17 [Novolin N] Insulin Regular, Human [Novolin R] 40 units SQ TIDWM 11/14/17 11/14/17 Previous Rx's Medication Instructions Recorded Atorvastatin [Lipitor] 80 mg PO HS #60 tablet 01/09/16 amLODIPine [Norvasc] 10 mg PO DAILY #60 tablet 01/09/16 Nitroglycerin 0.4 mg SL Q5MIN PRN #25 tab.subl 05/28/16 Aspirin 325 mg PO DAILY #30 tablet 05/21/17 Clopidogrel [Plavix] 75 mg PO DAILY #30 tablet 05/21/17 Allergies Allergy/AdvReac Type Severity Reaction Status Date / Time ciprofloxacin [From Cipro] Allergy Hives Verified 11/14/17 12:19 Sulfa (Sulfonamide Allergy Hives Verified 11/14/17 12:19 Antibiotics) celecoxib AdvReac Nausea Verified 11/14/17 12:19 All systems ED: reviewed and negative except as stated. Review of Systems: As Per HPI Constitutional: Denies: fever, chills Eyes: Reports: vision change (Dizziness) Cardiovascular: Denies: chest pain, palpitations Respiratory: Denies: cough, dyspnea Gastrointestinal: Reports: nausea. Denies: abdominal pain, vomiting Musculoskeletal: Denies: back pain Integumentary: Denies: rash Neurological: Denies: headache Hematological/Lymphatic: Denies: easy bleeding Past Medical History - Past Medical History Attestation: Yes The following information was validated with the patient. Source: patient Medical history: Reports: CVA, diabetes, hyperlipidemia, hypertension, renal disease, other Surgical history: Reports: cholecystectomy, orthopedic, other, other Psychiatric history: Reports: depression - Social History Smoking Status: Former smoker Smokeless Tobacco Status: No Alcohol use: Reports: none Drug use: Reports: none Physical Exam - General Limitations: no limitations General appearance: alert - Head Head exam: atraumatic, normocephalic - Eye Eye exam: Present: normal appearance - Chest Chest inspection: Present: normal inspection - Respiratory Respiratory exam: Present: normal lung sounds bilaterally, other (Rhonchi on left base). Absent: wheezes - Cardiovascular Cardiovascular exam: Present: regular rate. Absent: systolic murmur - Abdominal Exam Abdominal exam: Present: soft, Non-Tender, normal bowel sounds - Extremities Exam Extremities exam: Present: normal inspection. Absent: tenderness - Back Exam Back exam: Present: normal inspection - Neurological Exam Neurological exam: Present: alert, oriented X3 - Expanded Neurological Exam Patient oriented to: Present: person, place, time Speech: Present: fluid speech Cerebellar function: finger to nose: Normal Motor strength - LUE: 5/5 Motor strength - RUE: 5/5 Motor strength - LLE: 5/5 Motor strength - RLE: 5/5 - Psychiatric Psychiatric exam: Present: normal affect, normal mood - Skin Skin exam: Present: dry, intact Course Course Narrative: 67yo male with past medical history of hypertension, diabetes, stroke, lung cancer presented to [facility] complaining of dizziness. He reported that he has had intermittent dizziness since his last stroke in April 2017, however yesterday afternoon he had increased dizziness while working on his lawnmower which never resolved and then this morning he woke up with more intense dizziness and nausea. He describes the dizziness as him moving. He denies chest pain, shortness of breath, abdominal pain, fever, chills, syncope, headache, palpitations. Differential includes CVA, ACS, orthostatic hypotension , hypertensive urgency. Will order a head CT, EKG, troponin, urinalysis, CBC, CMP. Vital Signs Temperature 98.3 F 11/14/17 09:02 Pulse Rate 111 11/14/17 09:02 Respiratory Rate 18 11/14/17 09:02 Blood Pressure 233/109 11/14/17 09:02 O2 Sat by Pulse Oximetry 97 11/14/17 09:02 Temperature 98.3 F 11/14/17 09:02 Pulse Rate 89 11/14/17 09:19 Respiratory Rate 10 11/14/17 09:19 Blood Pressure 215/100 11/14/17 09:19 O2 Sat by Pulse Oximetry 95 11/14/17 09:19 Oxygen Delivery Oxygen Delivery Room Air Dizziness - MDM Narrative Medical decision making narrative: 67yo male with past medical history of hypertension, diabetes, stroke, lung cancer, CKD presented to [facility] complaining of dizziness. He reported that he has had intermittent dizziness since his last stroke in April 2017, however yesterday afternoon he had increased dizziness while working on his lawnmower which never resolved and then this morning he woke up with more intense dizziness and nausea. He describes the dizziness as him moving. He denies chest pain, shortness of breath, abdominal pain, fever, chills, syncope, headache, palpitations. Reports that his symptoms now are different from when he had a stroke. He is currently taking Plavix. Head CT demonstrated subacute or chronic right BUSINESS PROCESS SPECIALIST territory infarction different as compared to 2016, recommending follow-up MRI. Chest x-ray demonstrated right upper lobe nodule however the patient was recently diagnosed with lung cancer is following at the cancer center. WBC minimally elevated, creatinine at baseline. EKG, troponin, urinalysis unremarkable. Plan to admit for MRI to follow up on the new findings. The patient was going to be given labetalol for high blood pressure however once rechecked his blood pressure had improved to the 180s systolic. The hospital is Dr. Brock accepted admission of the patient. - Differential Diagnosis Likely: orthostatic hypotension, cerebrovascular accident - Medical Records Medical records reviewed: Yes I reviewed the patient's medical records. - Lab Data Lab results reviewed: Yes I reviewed the patient's lab results. - Radiology Data Radiology results reviewed: Yes I reviewed the patient's radiology results. - EKG Data EKG attestation: Yes I reviewed and interpreted this EKG. EKG results narrative: EKG HR 89, right axis deviation, no ST or T wave changes indicating ischemia or infarction. VT 191, QRS 119, QT/QTC 399/446
[2017-11-14 10:01] LABS: Bilirubin,Urine Negative (Negative); Blood,Urine Negative (Negative); Clarity,Urine Clear (Clear); Color,Urine Yellow (Yellow); Glucose,Urine (UA) 250 mg/dL (Normal); Ketones,Urine Negative (Negative); Leukocyte Esterase,Urine Negative (Negative); Nitrite,Urine Negative (Negative); PH,Urine 6.5 pH Units (5.0-8.0); Protein,Urine >=1000 mg/dL (Neg-Trace); Specific Gravity,Urine 1.017 (1.010-1.025); Urobilinogen,Urine Normal (Normal)
[2017-11-14 10:02] LABS: Bacteria,Urine None Seen per hpf (None-Few); Hyaline Casts,Urine None Seen per lpf (None-Few); RBC,Urine 0-3 per hpf (0-3); Squamous Epithelial Cell,Urine Many per lpf (None-Few); WBC,Urine 0-3 per hpf (0-3)
[2017-11-14 10:16] LABS: Alanine Aminotransferase 18 Units/L (7-52); Albumin 4.1 g/dL (3.5-5.7); Albumin/Globulin Ratio 1.2 (1.1-2.2); Alkaline Phosphatase 164 Units/L (34-104); Aspartate Amino Transferase 18 Units/L (13-39); BUN/Creatinine Ratio 12 (6-26); Bilirubin,Total 0.4 mg/dL (0.3-1.0); Blood Urea Nitrogen 50 mg/dL (8-23); Calcium 9.2 mg/dL (8.6-10.3); Carbon Dioxide 20 mEq/L (23-29); Chloride 105 mEq/L (98-107); Globulin 3.5 g/dL (2.4-3.5); Glucose 219 mg/dL (70-105); Osmolality,Calculated 298 (280-300); Potassium 4.8 mEq/L (3.5-5.1); Sodium 134 mEq/L (136-145); Total Protein 7.6 g/dL (6.4-8.9); Troponin I < 0.03 ng/mL (< 0.04); eGFR For African Americans 17 (> 60); eGFR For Non-African Americans 14 (> 60)
--- NOTE | 2017-11-14 11:18 | Emergency Department Note ---
Disposition Clinical Impression: CVA (cerebral vascular accident), Hypertensive emergency, Chronic renal disease , Dyspnea Disposition: Admitted As Inpatient Condition: Fair Referrals: Tico Thompson MD [Primary Care Provider] - Forms: ED Satisfaction Letter Time of Disposition: 11:15 Dizziness HPI - General Chief Complaint: ED Dizziness Stated Complaint: DIzzy/Don't feel like I'm Breathing Time Seen by Provider: 11/14/17 09:10 Source: patient Mode of arrival: ambulatory Limitations: no limitations Nursing Notes Reviewed: Yes Vital Signs Reviewed: Yes - Related Data Home Medications Medication Instructions Recorded Confirmed Gabapentin [Neurontin] 600 mg PO BID 01/08/16 11/08/17 Glimepiride [Amaryl] 8 mg PO DAILY 01/08/16 11/08/17 Insulin NPH Human Isophane 60 unit SQ BID 01/08/16 11/08/17 [Novolin N] Insulin Regular, Human [Novolin R] 40 unit SQ TIDWM 01/08/16 11/08/17 Metoprolol XL (24 HR) Succ [Toprol 50 mg PO DAILY 01/08/16 11/08/17 Xl] Omeprazole [PriLOSEC] 40 mg PO DAILY 01/08/16 11/08/17 OxyCODONE/APAP 10/325 [Percocet 1 tab PO Q6H PRN 01/08/16 11/08/17 10/325 MG] DULoxetine [Cymbalta] 30 mg PO DAILY 05/27/16 11/08/17 Tizanidine HCl 4 mg PO Q8H PRN 05/27/16 11/08/17 hydrALAZINE [HydrALAZINE] 50 mg PO TID 05/23/17 11/08/17 CloNIDine HCl [Kapvay] 0.1 mg PO HS 09/12/17 11/08/17 Mometasone Furoate [Nasonex] 2 spray IH DAILY 09/12/17 11/08/17 Nystatin/Triamcinolone CRM 1 appl TP BID 09/12/17 11/08/17 [Mycolog] Testosterone Cypionate 100 mg IM Q3W 09/12/17 11/08/17 [Depo-Testosterone] Previous Rx's Medication Instructions Recorded Atorvastatin [Lipitor] 80 mg PO HS #60 tablet 01/09/16 amLODIPine [Norvasc] 10 mg PO DAILY #60 tablet 01/09/16 Nitroglycerin 0.4 mg SL Q5MIN PRN #25 tab.subl 05/28/16 Aspirin 325 mg PO DAILY #30 tablet 05/21/17 Clopidogrel [Plavix] 75 mg PO DAILY #30 tablet 05/21/17 LORazepam [Ativan] 1 - 2 tab PO AD 2 Days #4 tablet 11/08/17 Allergies Allergy/AdvReac Type Severity Reaction Status Date / Time ciprofloxacin [From Cipro] Allergy Hives Verified 10/15/17 11:28 Sulfa (Sulfonamide Allergy Hives Verified 10/15/17 11:28 Antibiotics) celecoxib AdvReac Nausea Verified 10/15/17 11:28 Constitutional: Denies: fever, chills Eyes: Reports: vision change (Dizziness) Cardiovascular: Denies: chest pain, palpitations Respiratory: Denies: cough, dyspnea Gastrointestinal: Reports: nausea. Denies: abdominal pain, vomiting Musculoskeletal: Denies: back pain Integumentary: Denies: rash Neurological: Denies: headache Hematological/Lymphatic: Denies: easy bleeding Past Medical History - Past Medical History Medical history: Reports: CVA, diabetes, hyperlipidemia, hypertension, renal disease, other Surgical history: Reports: cholecystectomy, orthopedic, other, other Psychiatric history: Reports: depression - Social History Smoking Status: Former smoker Smokeless Tobacco Status: No Alcohol use: Reports: none Drug use: Reports: none Physical Exam - General Limitations: no limitations General appearance: alert Course Vital Signs Temperature 98.3 F 11/14/17 09:02 Pulse Rate 111 11/14/17 09:02 Respiratory Rate 18 11/14/17 09:02 Blood Pressure 233/109 11/14/17 09:02 O2 Sat by Pulse Oximetry 97 11/14/17 09:02 Temperature 98.3 F 11/14/17 09:02 Pulse Rate 84 11/14/17 09:57 Respiratory Rate 10 11/14/17 09:19 Blood Pressure 204/109 11/14/17 09:57 O2 Sat by Pulse Oximetry 94 11/14/17 09:57 Oxygen Delivery Oxygen Delivery Room Air Dizziness - Lab Data Result diagrams: 11/14/17 09:41 11/14/17 09:41 Lab Results 11/14/17 11/14/17 11/14/17 Range/Units 09:41 09:41 09:50 WBC 12.5 H (4.3-11.1) K/mcL RBC 4.79 (4.19-5.50) M/mcL Hgb 15.1 (12.9-16.9) g/dL Hct 43.8 (37.5-50.1) % MCV 91.4 (83.0-100.0) fL MCH 31.5 (28.0-33.3) pg MCHC 34.5 (31.6-35.5) g/dL RDW 13.4 (11.5-14.5) % Plt Count 239 (140-400) K/mcL MPV 9.6 (9.4-12.4) fL Immature Gran % 0.9 (0-4) % Seg Neutrophils % 69.0 % Lymphocytes % 19.7 % Monocytes % 6.3 % Eosinophils % 3.2 % Basophils % 0.9 % Neutrophils # 8.6 (1.6-8.9) K/mcL Lymphocytes # 2.5 (0.6-4.6) K/mcL Monocytes # 0.8 (0.0-1.3) K/mcL Eosinophils # 0.4 (0.0-0.6) K/mcL Basophils # 0.1 (0.0-0.2) K/mcL Sodium 134 L (136-145) mEq/L Potassium 4.8 (3.5-5.1) mEq/L Chloride 105 (98-107) mEq/L Carbon Dioxide 20 L (23-29) mEq/L BUN 50 H (8-23) mg/dL Creatinine 4.22 H (0.70-1.30) mg/dL Est GFR ( Amer) 17 L (> 60) Est GFR (Non-Af Amer) 14 L (> 60) BUN/Creatinine Ratio 12 (6-26) Glucose 219 H (70-105) mg/dL Calculated Osmolality 298 (280-300) Calcium 9.2 (8.6-10.3) mg/dL Total Bilirubin 0.4 (0.3-1.0) mg/dL AST 18 (13-39) Units/L ALT 18 (7-52) Units/L Alkaline Phosphatase 164 H (34-104) Units/L Troponin I < 0.03 (< 0.04) ng/mL Serum Total Protein 7.6 (6.4-8.9) g/dL Albumin 4.1 (3.5-5.7) g/dL Globulin 3.5 (2.4-3.5) g/dL Albumin/Globulin Ratio 1.2 (1.1-2.2) Urine Color Yellow (Yellow) Urine Clarity Clear (Clear) Urine pH 6.5 (5.0-8.0) pH Units Ur Specific [place] 1.017 (1.010-1.025) Urine Protein >=1000 H (Neg-Trace) mg/dL Urine Glucose (UA) 250 H (Normal) mg/dL Urine Ketones Negative (Negative) mg/dL Urine Blood Negative (Negative) Urine Nitrite Negative (Negative) Urine Bilirubin Negative (Negative) Urine Urobilinogen Normal (Normal) mg/dL Ur Leukocyte Esterase Negative (Negative) Urine Microscopic RBC 0-3 (0-3) per hpf Urine Microscopic WBC 0-3 (0-3) per hpf Ur Squamous Epith Cells Many H (None-Few) per lpf Urine Bacteria None Seen (None-Few) per hpf Hyaline Casts None Seen (None-Few) per lpf Ur Culture Indicated? NO (NO) Attestation Statement - Attestation Attestation: I, Ziyad Ferguson, examined this patient and my medical decision-making was reviewed with the DIGITAL MARKETING ASSOCIATE/PA/Advanced Practice Nurse/Resident Physician. I agree with the documented findings, disposition and treatment plan as described except to the extent set forth below. 67-year-old male presents emergency Department with concerns of dizziness. Patient states symptoms started within the past 24 hours. He had a stroke within the past year that resulted similar symptoms. He was left with peripheral vision deficit after previous CVA. Patient states today he is unable to ambulate secondary to dizziness. He does not describe room spinning but he states that he is unable to keep his balance. Patient does not have focal motor deficit in the upper or lower extremities. He currently takes aspirin and Plavix. Patient has increasing shortness of breath as well over the past week. He does have a recent diagnosis of lung cancer and is followed by Dr. Sarabia. Laboratory evaluation shows renal failure which has been chronic for the patient follows Dr. Daniel. Patient blood pressure significantly elevated in the emergency department. He will be given labetalol for treatment of his blood pressure. CT shows possible new CVA. He will be admitted for further care and evaluation and likely MRI.
[2017-11-14] MEDS ORDERED: *HR* Labetalol 100 MG/20 ML MDV IVP ONE (11:21)
[2017-11-14] MEDS ORDERED: Naloxone 0.4 MG/ML INJ IVP PRN ×2 (11:53→11:54)
[2017-11-14] MEDS ORDERED: tiZANidine 4 MG TABLET PO PRN (11:57)
[2017-11-14] MEDS ORDERED: Nitroglycerin 0.4 MG TAB.SUBL SL PRN (11:57)
[2017-11-14] MEDS ORDERED: *HR* LORazepam 1 MG TABLET PO SCH (12:00)
[2017-11-14] MEDS ORDERED: NON-FORMULARY MEDICATION 1 EACH EACH (Testosterone Cypionate [Depo-Testosterone] 100 MG) IM SCH (12:00)
--- NOTE | 2017-11-14 12:07 | Internal Med History&Physical ---
Date of Encounter: 11/14/17 Time of Encounter: 12:00 Internal Medicine - H&P: HPI Chief complaint: Dizziness Admitted From: Home Plans for Post Hospital Care: Home History of present illness: Mr. Xavier is a 67 year old male with significant past medical history with old stroke back in 2017 and she recently diagnosed lung cancer on biopsy last week who presented to the emergency department with dizziness. Patient woke up with dizziness this morning. He had it off and on yesterday as well. Patient had peripheral blurry vision which has been chronic since his old stroke. He denied any chest pain or shortness of breath no headache. He does not have nausea and vomited once. Denies any abdominal pain or changes in bowel movement. Denied any fever palpitations or chills. Past Med Surg Social Fam HX - Past Medical History Medical history: CVA, diabetes, hyperlipidemia, hypertension, renal disease, other Additional medical history: LOW TESTERONE. SLEEP APNEA Psychiatric history: depression - Past Surgical History Surgical History: cholecystectomy, orthopedic, other, other Additional surgical history: BRAIN ANEURYSM - Social History Smoking Status: Former smoker Smokeless Tobacco Status: No Alcohol use: none Drug use: none - Family History Father Hx Family Cardiac Disorders: Yes Mother Living Status: Hx Family Cancer: Yes Brother Hx Family Cardiac Disorders: Yes Hx Family Cancer: Yes Internal Medicine - H&P: Meds Gabapentin [Neurontin] 600 mg PO BID 01/08/16 [History] Glimepiride [Amaryl] 8 mg PO DAILY 01/08/16 [History] Metoprolol XL (24 HR) Succ [Toprol Xl] 50 mg PO DAILY 01/08/16 [History] Omeprazole [PriLOSEC] 40 mg PO DAILY 01/08/16 [History] OxyCODONE/APAP 10/325 [Percocet 10/325 MG] 1 tab PO Q6H PRN 01/08/16 [History] Atorvastatin [Lipitor] 80 mg PO HS #60 tablet 01/09/16 [Rx] amLODIPine [Norvasc] 10 mg PO DAILY #60 tablet 01/09/16 [Rx] Tizanidine HCl 4 mg PO Q8H PRN 05/27/16 [History] Nitroglycerin 0.4 mg SL Q5MIN PRN #25 tab.subl 05/28/16 [Rx] Aspirin 325 mg PO DAILY #30 tablet 05/21/17 [Rx] Clopidogrel [Plavix] 75 mg PO DAILY #30 tablet 05/21/17 [Rx] CloNIDine HCl [Kapvay] 0.1 mg PO HS 09/12/17 [History] Mometasone Furoate [Nasonex] 2 spray IH DAILY 09/12/17 [History] Albuterol Sulfate [Ventolin Hfa] 2 puff IH Q4H PRN 11/14/17 [History] Hydralazine HCl 50 mg PO TID 11/14/17 [History] 3 Allergy/AdvReac Type Severity Reaction Status Date / Time ciprofloxacin [From Cipro] Allergy Hives Verified 10/15/17 11:28 Sulfa (Sulfonamide Allergy Hives Verified 10/15/17 11:28 Antibiotics) celecoxib AdvReac Nausea Verified 10/15/17 11:28 All Systems PM: A 10-system review of systems was performed and is negative for pertinent findings except as documented above in the HPI. Review of systems: Comprehensive 10 point review of system was done and it was negative other than what was mentioned above - Constitutional Vitals: Temp Pulse Resp BP Pulse Ox 98.3 F 77 10 183/79 93 11/14/17 09:02 11/14/17 11:48 11/14/17 09:19 11/14/17 11:48 11/14/17 11:48 General appearance: Present: A&O X 3 - Head Head exam: Present: atraumatic, normocephalic - Eye Eye exam: Present: PERRL, conjuntiva pink, sclera anicteric Pupils: Present: PERRL - Neck Neck exam general surgery: Present: supple, trachea midline. Absent: lymphadenopathy - Respiratory Respiratory exam: Present: CTAB. Absent: accessory muscle use, rales, rhonchi, wheezes - Cardiovascular Cardiovascular exam: Present: RRR, +S1, +S2. Absent: diastolic murmur, gallop, rubs, systolic murmur - GI/Abdominal GI/Abdominal exam: Present: normal bowel sounds, soft, no peritoneal signs. Absent: distended, tenderness - Extremities Exam Extremities exam: Present: warm, radial pulses palpable and symmetrical. Absent : calf tenderness, cyanotic, pedal edema - Neurological Exam Neurological exam: Present: normal gait, oriented X3 Additional comments: Has normal gait but feeling dizzy. Peripheral blurry vision which has been chronic Muscle strength symmetric 5/5 upper extremities, 4/5 lower extremity Internal Med - H&P Results - Labs CBC & Chem 7: 11/14/17 09:41 11/14/17 09:41 - Assessment and plan (1) CVA (cerebral vascular accident) Current Visit: Yes Status: Acute Assessment and plan: CT head showed possible subacute and new stroke. Not clear if it is the same stroke patient had back in April 2017 Will check MRI brain, MRA head and neck Continue aspirin and Plavix, high intensity statin Check fasting lipid profile Monitor blood pressure Neurology consult Check an echocardiogram for further evaluation of the heart structure and function Patient stated he order placed last month. Need to check if it is compatible with MRI ST/PT/OT Qualifiers: Qualified Code(s): I63.9 - Cerebral infarction, unspecified (2) CVA (cerebral vascular accident) Current Visit: Yes Status: Acute Qualifiers: (3) Dizziness Current Visit: Yes Status: Acute Assessment and plan: Distant plan as above Gentle IV hydration for now Follow-up MRI and echo (4) Chronic kidney disease (CKD) Current Visit: Yes Status: Acute Assessment and plan: Currently his BUN/Cr around his baseline Monitor Qualifiers: Chronic kidney disease stage: stage 4 (severe) Qualified Code(s): N18.4 - Chronic kidney disease, stage 4 (severe) (5) HTN (hypertension) Current Visit: No Status: Acute Assessment and plan: Monitor blood pressure We will allow for permissive hypertension for now undergo new stroke is ruled out Qualifiers: Hypertension type: essential hypertension Qualified Code(s): I10 - Essential (primary) hypertension (6) Lung cancer Current Visit: Yes Status: Acute Assessment and plan: Recently diagnosed on biopsy that was done last week Following with oncology of [facility] Plan for surgery and adjuvant chemotherapy Qualifiers: Qualified Code(s): C34.90 - Malignant neoplasm of unspecified part of unspecified bronchus or lung (7) DVT prophylaxis Current Visit: Yes Status: Acute Assessment and plan: With Lovenox subcutaneous - Time Spent With Patient Total time spent is greater than 50% in coordination of care (as documented) at patient's floor/unit and/or counseling patient:
[2017-11-14] MEDS: Insulin LISPRO 300 UNITS/3 ML VIAL SQ SCH ×2 (14:21→17:52)
[2017-11-14] MEDS: 0.9 % Sodium Chloride 1,000 ML IVC SCH (14:46)
[2017-11-14] MEDS: hydrALAZINE 25 MG TABLET PO SCH ×2 (14:46→19:59)
--- NOTE | 2017-11-14 14:51 | Neurology - Consult Note ---
<Carlos Chen - Last Filed: 11/14/17 15:30> Date of Encounter: 11/14/17 Time of Encounter: 14:00 Assessment and Plan (1) Dizziness Current Visit: Yes Status: Acute Patient presents with acute on chronic dizziness and nausea. He has been dizzy since his stroke in April of 2017. Now back to baseline dizziness and nausea. CT scan shows stroke from 2017. Pt with loop recorder placed after stroke. Never taken out never evaluated as he was dismissed from the practice. ECHO already performed and normal. MRI, MRA head/neck ordered Folate, B12, Lipid panel ordered PT/OT consult placed Recommendations: Loop recorder should be MRI compatible since it was recently placed. Confirm MRI compatibility and then perform MRI studies Finish Stroke work as already ordered. Patient with ortho static hypotension which may be contributing to his baseline dizziness from his occipital lobe stroke. Patient can follow up as an outpatient. History of Present Illness Chief complaint: Dizziness, Nausea HPI: Mr. Xavier is a 67 year old male c PMHx of CVA, diabetes, hyperlipidemia, hypertension, renal disease, Depression, MAHAMED who reports to the [facility] c/o Worsened dizziness and nausea compared to baseline. Patient reports that since his R occipital CVA in April of 2017 patient has been dizzy. He reports that since his brain aneurysm surgery he has been nauseated. He has also had left hemianopia since his stroke as well. Patient reports his Dizziness and Nausea were worse than usual this morning so he sought care. He reports being back to his baseline nausea and Dizziness at this time. Patient denies slurred speech, change in his vision, numbness or tingling or focal weakness. Patient was worked up in the ED with CT head which showed: "low-attenuation in the medial right occipital lobe may represent subacute or chronic right [employer]NAGER territory infarction. This is new compared to the head CT from 01/07/2016. If there is concern for acute or subacute infarction, then MRI of the brain should be considered. No acute intracranial hemorrhage. No acute intracranial abnormality." However patient had their stoke April 2017 and area of hypodensity on current CT corresponds with shape and size of infarction from the MRI done during his admission for stroke in April of 2017. ECHO showed no PFO and preserved EF no wall motion abnormality and no significant valvular dysfunction. UA negative. WBC mildly elevated at 12.5, but afebrile. Pt was tachy cardic on admission, but not currently. Patient has been Hypertensive through out admission. Patient was positive for orthostatic hypotension upon testing. Past Med Surg Social Fam HX - Past Medical History Medical history: CVA, diabetes, hyperlipidemia, hypertension, renal disease, other Additional medical history: LOW TESTERONE. SLEEP APNEA Psychiatric history: depression - Past Surgical History Surgical History: cholecystectomy, orthopedic, other, other Additional surgical history: BRAIN ANEURYSM - Social History Smoking Status: Former smoker Smokeless Tobacco Status: No Alcohol use: none Drug use: none - Family History Father Hx Family Cardiac Disorders: Yes Mother Living Status: Hx Family Cancer: Yes Brother Hx Family Cardiac Disorders: Yes Hx Family Cancer: Yes Medications and Allergies Gabapentin [Neurontin] 600 mg PO BID 01/08/16 [History] Glimepiride [Amaryl] 8 mg PO DAILY 01/08/16 [History] Metoprolol XL (24 HR) Succ [Toprol Xl] 50 mg PO DAILY 01/08/16 [History] Omeprazole [PriLOSEC] 40 mg PO DAILY 01/08/16 [History] OxyCODONE/APAP 10/325 [Percocet 10/325 MG] 1 tab PO Q6H PRN 01/08/16 [History] Atorvastatin [Lipitor] 80 mg PO HS #60 tablet 01/09/16 [Rx] amLODIPine [Norvasc] 10 mg PO DAILY #60 tablet 01/09/16 [Rx] Tizanidine HCl 4 mg PO Q8H PRN 05/27/16 [History] Nitroglycerin 0.4 mg SL Q5MIN PRN #25 tab.subl 05/28/16 [Rx] Aspirin 325 mg PO DAILY #30 tablet 05/21/17 [Rx] Clopidogrel [Plavix] 75 mg PO DAILY #30 tablet 05/21/17 [Rx] CloNIDine HCl [Kapvay] 0.1 mg PO HS 09/12/17 [History] Mometasone Furoate [Nasonex] 2 spray IH DAILY 09/12/17 [History] Albuterol Sulfate [Ventolin Hfa] 2 puff IH Q4H PRN 11/14/17 [History] Hydralazine HCl 50 mg PO TID 11/14/17 [History] Insulin NPH Human Isophane [Novolin N] 60 unit SQ BID 11/14/17 [History] Insulin Regular, Human [Novolin R] 40 units SQ TIDWM 11/14/17 [History] 3 Allergy/AdvReac Type Severity Reaction Status Date / Time ciprofloxacin [From Cipro] Allergy Hives Verified 11/14/17 12:19 Sulfa (Sulfonamide Allergy Hives Verified 11/14/17 12:19 Antibiotics) celecoxib AdvReac Nausea Verified 11/14/17 12:19 All Systems: Except where noted in the HPI the remainder of the systems were reviewed and are negative Physical Examination - Vital Signs Vital Signs: Initial Vital Signs Temp Pulse Resp BP Pulse Ox 98.3 F 111 18 233/109 97 11/14/17 09:02 11/14/17 09:02 11/14/17 09:02 11/14/17 09:02 11/14/17 09:02 - Constitutional General appearance: comfortable - Neurologic Sensorimotor examination: intact Detailed motor examination: grossly full strength in all extremities, full strength in all major muscle groups Motor examination - right side: 5/5: deltoids, biceps, triceps, wrist flexion, wrist extension, corporation officer, hip flexors, tibialis Anterior, quadriceps, toe extension (EHL), plantarflexion Motor examination - left side: 5/5: deltoids, biceps, triceps, wrist flexion, wrist extension, hip flexors, corporation officer, quadriceps, tibialis Anterior, toe extension (EHL), plantarflexion Detailed sensory examination: intact, light touch Reflexes: Biceps: 2+ Mental Status Examination: awake, alert, oriented to person, oriented to place, oriented to time, follows commands appropriately, answers questions appropriately, no agnosia, no aphasia, no aproxia Cranial nerve examination: PERRL (pupils react sluggishly b/l hx of lens replacmeent surgery. Left visual field cut. ), EOMI, sensory to face intact, no facial asymmetry is present, no dysarthria, hearing is intact symmetrically, soft palate elevates bilaterally upon phonation, flexes SCM and trapezius muscles symmetrically with full power, tongue protrudes midline, no atrophy or facial fasiculations present Cerebellar examination: no dysmetria, performs finger to nose and heel to forte symmetrically without ataxia, no difficulty with rapid alternating movements ( rhomberg negative, no nystagmus present. ) Results - Laboratory Findings CBC and BMP: 11/14/17 09:41 11/14/17 09:41 Abnormal lab findings: Abnormal lab results WBC 12.5 K/mcL (4.3-11.1) H 11/14/17 09:41 Sodium 134 mEq/L (136-145) L 11/14/17 09:41 Carbon Dioxide 20 mEq/L (23-29) L 11/14/17 09:41 BUN 50 mg/dL (8-23) H 11/14/17 09:41 Creatinine 4.22 mg/dL (0.70-1.30) H 11/14/17 09:41 Est GFR ( Amer) 17 (> 60) L 11/14/17 09:41 Est GFR (Non-Af Amer) 14 (> 60) L 11/14/17 09:41 Glucose 219 mg/dL (70-105) H 11/14/17 09:41 Alkaline Phosphatase 164 Units/L (34-104) H 11/14/17 09:41 Urine Protein >=1000 mg/dL (Neg-Trace) H 11/14/17 09:50 Urine Glucose (UA) 250 mg/dL (Normal) H 11/14/17 09:50 Ur Squamous Epith Cells Many per lpf (None-Few) H 11/14/17 09:50 Consult Discharge Plan - Plan Referrals: Tico Thompson MD [Primary Care Provider] - <Rose Ashley I - Last Filed: 11/14/17 15:51> Date of Encounter: 11/14/17 Assessment and Plan (1) Dizziness Current Visit: Yes Status: Acute Pt was seen and examined, my medical decision was reviewed with the Resident Physician, I agree with the documented findings, disposition and treatment plas as described except to the extent set forth below As patient who apparently had an history of flow his stroke in 2017 residual mild left homonymous hemianopia an evidence of occipital infarct on his recent CT scan of the head admitted with dizziness and lightheadedness without any other focal findings on his current neurological examination. CT scan shows concern off for new versus old infarct in the right posterior occipital lobe as noted compared to the previous his scan in 2016. Seemed like in between patient did have a infarct which seems to be consistent with his clinical symptoms of hemianopia with the posterior circulation and [employer]FF[employer] MANAGER infarct. Clinically does not look like that he had a new stroke but only way to confirm that indeed if is a not a new stroke he would need an MRI of the brain. Patient did have a loop recorder placed in few weeks ago at this time it is not clear that he will be able to get MRI or not because of it Regardless I would suggest that he should continue on his current antiplatelet therapy. For his lightheadedness and dizziness which is likely orthostatic suggest checking his orthostatic blood pressure at the same time may benefit from IV and increase oral fluid intake. Continue to monitor him for any cardiac arrhythmias. PT evaluation Rose Ashley MD History of Present Illness HPI: Mr. Xavier is a 67 year old male All Systems: The remainder of the systems were reviewed and are negative Physical Examination - Vital Signs Vital Signs: Initial Vital Signs Temp Pulse Resp BP Pulse Ox 98.3 F 111 18 233/109 97 11/14/17 09:02 11/14/17 09:02 11/14/17 09:02 11/14/17 09:02 11/14/17 09:02 Results - Laboratory Findings CBC and BMP: 11/14/17 09:41 11/14/17 09:41 Abnormal lab findings: Abnormal lab results WBC 12.5 K/mcL (4.3-11.1) H 11/14/17 09:41 Sodium 134 mEq/L (136-145) L 11/14/17 09:41 Carbon Dioxide 20 mEq/L (23-29) L 11/14/17 09:41 BUN 50 mg/dL (8-23) H 11/14/17 09:41 Creatinine 4.22 mg/dL (0.70-1.30) H 11/14/17 09:41 Est GFR ( Amer) 17 (> 60) L 11/14/17 09:41 Est GFR (Non-Af Amer) 14 (> 60) L 11/14/17 09:41 Glucose 219 mg/dL (70-105) H 11/14/17 09:41 Alkaline Phosphatase 164 Units/L (34-104) H 11/14/17 09:41 Urine Protein >=1000 mg/dL (Neg-Trace) H 11/14/17 09:50 Urine Glucose (UA) 250 mg/dL (Normal) H 11/14/17 09:50 Ur Squamous Epith Cells Many per lpf (None-Few) H 11/14/17 09:50
[2017-11-14 16:07] LABS: Folate 9.7 ng/mL (3.0-16.0)
[2017-11-14] MEDS ORDERED: *HR* LORazepam 2 MG/ML VIAL IVP ONE (18:12)
[2017-11-14] MEDS: cloNIDine HCl 0.1 MG TABLET PO SCH (20:00)
[2017-11-14] MEDS: Insulin NPH 100 UNIT/ML (x5UNIT) SQ SCH (20:05)
[2017-11-15 03:17] LABS: Hematocrit 37.7 % (37.5-50.1); Mean Corpuscular HGB Conc 34.2 g/dL (31.6-35.5); Mean Corpuscular Hemoglobin 31.2 pg (28.0-33.3); Mean Corpuscular Volume 91.3 fL (83.0-100.0); Mean Platelet Volume 9.8 fL (9.4-12.4); Platelet Count 195 K/mcL (140-400); Red Blood Count 4.13 M/mcL (4.19-5.50); Red Cell Distribution Width 13.2 % (11.5-14.5)
[2017-11-15 03:23] LABS: Hemoglobin 12.9 g/dL (12.9-16.9)
[2017-11-15 03:26] LABS: Calcium 8.4 mg/dL (8.6-10.3); Magnesium 1.6 mg/dL (1.6-2.6); Phosphorous 4.5 mg/dL (2.7-4.5); Potassium 4.3 mEq/L (3.5-5.1)
[2017-11-15] MEDS: 0.9 % Sodium Chloride 1,000 ML IVC SCH (05:29)
[2017-11-15] MEDS: *HR* Enoxaparin 30 MG/0.3 ML SYRINGE SQ SCH (05:29)
[2017-11-15] MEDS: hydrALAZINE 25 MG TABLET PO SCH ×3 (08:06→20:41)
[2017-11-15] MEDS: Aspirin 325 MG TABLET PO SCH (08:06)
[2017-11-15] MEDS: Metoprolol XL (24 HR) Succ 50 MG TAB.ER.24H PO SCH (08:06)
[2017-11-15] MEDS: amLODIPine 5 MG TABLET PO SCH (08:06)
[2017-11-15] MEDS: Gabapentin 300 MG CAPSULE PO SCH (08:06)
[2017-11-15] MEDS: Insulin LISPRO 300 UNITS/3 ML VIAL SQ SCH ×3 (08:07→18:21)
[2017-11-15] MEDS: Fluticasone Propionate Nasal 50 MCG/SPRAY BOTTLE NS SCH (08:08)
[2017-11-15] MEDS: Insulin NPH 100 UNIT/ML (x5UNIT) SQ SCH ×2 (08:11→20:41)
[2017-11-15] MEDS ORDERED: *HR* Glimepiride 4 MG TABLET PO SCH (09:00)
--- NOTE | 2017-11-15 09:07 | Electrocardiograph Report ---
[facility] Test Date: 2017-11-14 Pat Name: Varun Xavier Department: 104 Room: 3B12 Gender: M Manager Lpn: RUDOLPH : 1950 Requested By: Ziyad Ferguson Order Number: [id number] Reading MD: Chris Bruk Measurements Intervals [place] Rate: 89 P: 24 [place]: 217 QRS: 179 QRSD: 120 T: 29 QT: 387 QTc: 434 Interpretive Statements SINUS RHYTHM WITH FIRST DEGREE AV BLOCK MARKED RIGHT AXIS DEVIATION [QRS AXIS > 100] RIGHT BUNDLE BRANCH BLOCK [120+ ms QRS DURATION, UPRIGHT V1, 40+ ms S IN I/aVL/V4/V5/V6] WARNING: DATA QUALITY MAY AFFECT INTERPRETATION Electronically Signed On 11-15-2017 9:05:32 EDT by Chris Burk
--- NOTE | 2017-11-15 09:12 | Neurology Progress Note ---
<Rose Ashley I - Last Filed: 11/15/17 11:08> Date of Encounter: 11/15/17 Time of Encounter: 08:40 Assessment and Plan (1) Dizziness Current Visit: Yes Status: Acute Pt was seen and examined, my medical decision was reviewed with the Resident Physician, I agree with the documented findings, disposition and treatment plas as described except to the extent set forth below Rose Ashley MD Objective - Constitutional Vitals: Temp Pulse Resp BP Pulse Ox 98.0 F 77 16 206/97 98 11/15/17 10:23 11/15/17 10:23 11/15/17 10:23 11/15/17 10:23 11/15/17 10:23 Results - Laboratory Findings CBC and BMP: 11/15/17 02:56 11/15/17 02:56 Abnormal lab findings: Abnormal lab results RBC 4.13 M/mcL (4.19-5.50) L 11/15/17 02:56 Sodium 135 mEq/L (136-145) L 11/15/17 02:56 Chloride 108 mEq/L (98-107) H 11/15/17 02:56 Carbon Dioxide 20 mEq/L (23-29) L 11/15/17 02:56 BUN 51 mg/dL (8-23) H 11/15/17 02:56 Creatinine 4.06 mg/dL (0.70-1.30) H 11/15/17 02:56 Est GFR ( Amer) 18 (> 60) L 11/15/17 02:56 Est GFR (Non-Af Amer) 15 (> 60) L 11/15/17 02:56 Glucose 111 mg/dL (70-105) H 11/15/17 02:56 POC Glucose 226 mg/dL (70-99) H 11/14/17 19:51 Calcium 8.4 mg/dL (8.6-10.3) L 11/15/17 02:56 Alkaline Phosphatase 164 Units/L (34-104) H 11/14/17 09:41 Urine Protein >=1000 mg/dL (Neg-Trace) H 11/14/17 09:50 Urine Glucose (UA) 250 mg/dL (Normal) H 11/14/17 09:50 Ur Squamous Epith Cells Many per lpf (None-Few) H 11/14/17 09:50 Consult Discharge Plan - Plan Referrals: Tico Thompson MD [Primary Care Provider] - 12/02/17 1:20 pm (Follow up appointment has been requested. Office will contact patient with date and time of appointment. ) Casey Perez MD [Partnered Physician] - 11/20/17 11:30 am <Carlos Chen - Last Filed: 11/15/17 11:24> Date of Encounter: 11/15/17 Assessment and Plan (1) Dizziness Current Visit: Yes Status: Acute Patient presents with acute on chronic dizziness and nausea. He has been dizzy since his stroke in April of 2017. Now back to baseline dizziness and nausea. CT scan shows stroke from 2017. Pt with loop recorder placed after stroke. Never taken out never evaluated as he was dismissed from the practice. ECHO already performed and normal. MRI, MRA head/neck show: "No acute intracranial abnormality. 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 Severely motion degraded MRA of the neck. No evident high-grade carotid or vertebral arterial stenosis." Folate, B12: wnl Lipid panel pending. PT/OT consulted Patient with ortho static hypotension which may be contributing to his baseline dizziness from his occipital lobe stroke. Recommendations: Agree with PT Patient would benefit from outpatient PT with a vestibular specialist to work on patient's dizziness issues. Patient can follow up as an outpatient with Neurology. Patient safe for discharge from a neurology perspective. We will sign off at this time. Subjective Principal diagnosis: dizziness Interval history: Patient seen and examined at bedside. No acute events overnight. MRI/MRA negative for new infarction other abnormality. Patient reports he is at his baseline level of dizziness. Objective - Constitutional Vitals: Temp Pulse Resp BP Pulse Ox 98.2 F 67 16 191/68 97 11/15/17 07:07 11/15/17 07:07 11/15/17 07:07 11/15/17 07:07 11/15/17 07:07 General appearance: Present: A&O X 3, pleasant, no acute distress - Neurological Exam Sensorimotor examination: Present: intact Motor Examination: Present: grossly full strength in all extremities, full strength in all major muscle groups Motor examination - right side: 5/5: deltoids, biceps, triceps, wrist flexion, wrist extension, staff physician, hip flexors, tibialis Anterior, quadriceps, toe extension (EHL), plantarflexion Motor examination - left side: 5/5: deltoids, biceps, triceps, wrist flexion, wrist extension, hip flexors, staff physician, quadriceps, tibialis Anterior, toe extension (EHL), plantarflexion Sensation intact: Present: intact, light touch Reflexes: Biceps: 2+ Mental Status Examination: Present: awake, alert, oriented to person, oriented to place, oriented to time, follows commands appropriately, answers questions appropriately, no agnosia, no aphasia, no aproxia Cranial nerve examination: Present: PERRL (pupils react sluggishly b/l hx of lens replacmeent surgery. ), EOMI, sensory to face intact, no facial asymmetry is present, no dysarthria, hearing is intact symmetrically, soft palate elevates bilaterally upon phonation, flexes SCM and trapezius muscles symmetrically with full power, tongue protrudes midline, no atrophy or facial fasiculations present. Absent: visual lynch intact (Left visual field cut.) Cerebellar examination: Present: no dysmetria, performs finger to nose and heel to forte symmetrically without ataxia, no difficulty with rapid alternating movements (rhomberg negative, no nystagmus present. ) Results - Laboratory Findings CBC and BMP: 11/15/17 02:56 11/15/17 02:56 Abnormal lab findings: Abnormal lab results RBC 4.13 M/mcL (4.19-5.50) L 11/15/17 02:56 Sodium 135 mEq/L (136-145) L 11/15/17 02:56 Chloride 108 mEq/L (98-107) H 11/15/17 02:56 Carbon Dioxide 20 mEq/L (23-29) L 11/15/17 02:56 BUN 51 mg/dL (8-23) H 11/15/17 02:56 Creatinine 4.06 mg/dL (0.70-1.30) H 11/15/17 02:56 Est GFR ( Amer) 18 (> 60) L 11/15/17 02:56 Est GFR (Non-Af Amer) 15 (> 60) L 11/15/17 02:56 Glucose 111 mg/dL (70-105) H 11/15/17 02:56 POC Glucose 226 mg/dL (70-99) H 11/14/17 19:51 Calcium 8.4 mg/dL (8.6-10.3) L 11/15/17 02:56 Alkaline Phosphatase 164 Units/L (34-104) H 11/14/17 09:41 Urine Protein >=1000 mg/dL (Neg-Trace) H 11/14/17 09:50 Urine Glucose (UA) 250 mg/dL (Normal) H 11/14/17 09:50 Ur Squamous Epith Cells Many per lpf (None-Few) H 11/14/17 09:50
--- NOTE | 2017-11-15 10:24 | Internal Med Progress Note ---
Date of Encounter: 11/15/17 Time of Encounter: 10:23 - Assessment and plan (1) CVA (cerebral vascular accident) Current Visit: Yes Status: Acute Assessment and plan: CT head did show possible subacute new stroke patient did have a stroke back in April 2017 MRI MRA head/neck shows No acute intracranial abnormality. 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 Severely motion degraded MRA of the neck. No evident high-grade carotid or vertebral arterial stenosis." Neurology consult in recommending patient to follow-up with PT with a vestibular specialist to workup on the patient's dizziness Neurology recommending follow-up as outpatient Monitor blood pressure Continue with aspirin and statin Qualifiers: CVA mechanism: unspecified Qualified Code(s): I63.9 - Cerebral infarction, unspecified (2) Dizziness Current Visit: Yes Status: Acute Assessment and plan: Patient was seen by neurology he does have a history of acute on chronic dizziness and nausea. He has been dizzy since his stroke antiseborrheic 2016 CT does show strep from 2017 echo completed EF of 65% no PFO He does have some hypertension during position change continue with home medications PT as outpatient with vestibular specialist (3) Lung cancer Current Visit: Yes Status: Acute Assessment and plan: Patient follows with oncology-myocardial plan is for surgery and adjuvant chemotherapy Qualifiers: Laterality: unspecified laterality Lung location: unspecified part of lung Qualified Code(s): C34.90 - Malignant neoplasm of unspecified part of unspecified bronchus or lung (4) Chronic kidney disease (CKD) Current Visit: Yes Status: Chronic Assessment and plan: Creatinine and GFR around baseline. We will continue to monitor and avoid nephrotoxins Qualifiers: Chronic kidney disease stage: stage 4 (severe) Qualified Code(s): N18.4 - Chronic kidney disease, stage 4 (severe) (5) HTN (hypertension) Current Visit: No Status: Acute Assessment and plan: 1 patient's blood pressure has been elevated he did miss some medications we will continue with home medications and monitor adjust as needed Qualifiers: Hypertension type: essential hypertension Qualified Code(s): I10 - Essential (primary) hypertension - Time Spent With Patient Total time spent is greater than 50% in coordination of care (as documented) at patient's floor/unit and/or counseling patient: - Subjective Interval history: Patient seen and examined at bedside, Denies any pain or discomfort, did expereince dizziness with positional changes . BP elevated during position change-he missed home dose of medication we will resume and continue to monitor. Recheck in the a.m. if stable he will be discharged home - Constitutional Vitals: Temp Pulse Resp BP Pulse Ox 98.2 F 77 16 182/72 97 11/15/17 07:07 11/15/17 10:18 11/15/17 07:07 11/15/17 10:18 11/15/17 07:07 General appearance: Present: A&O X 3 - Head Head exam: Present: atraumatic, normocephalic - Eye Eye exam: Present: PERRL, conjuntiva pink, sclera anicteric Pupils: Present: PERRL - Neck Neck exam general surgery: Present: supple, trachea midline. Absent: lymphadenopathy - Respiratory Respiratory exam: Present: CTAB. Absent: accessory muscle use, rales, rhonchi, wheezes - Cardiovascular Cardiovascular exam: Present: RRR, +S1, +S2. Absent: diastolic murmur, gallop, rubs, systolic murmur - GI/Abdominal GI/Abdominal exam: Present: normal bowel sounds, soft, no peritoneal signs. Absent: distended, tenderness - Extremities Exam Extremities exam: Present: warm, radial pulses palpable and symmetrical. Absent : calf tenderness, cyanotic, pedal edema - Neurological Exam Neurological exam: Present: CN II-XII intact, oriented X3, no focal deficits. Absent: pronater drift, facial droop, speech deficit - Skin Skin exam: Present: dry, intact Internal Medicine: Result - Labs CBC & Chem 7: 11/15/17 02:56 11/15/17 02:56 Labs: Short CBC 11/15/17 Range/Units 02:56 WBC 9.3 (4.3-11.1) K/mcL Hgb 12.9 D (12.9-16.9) g/dL Hct 37.7 (37.5-50.1) % Plt Count 195 (140-400) K/mcL BMP 11/15/17 02:56 Sodium 135 L Potassium 4.3 Chloride 108 H Carbon Dioxide 20 L BUN 51 H Creatinine 4.06 H Glucose 111 H Calcium 8.4 L Cardiac Enzymes 11/14/17 11/14/17 11/15/17 Range/Units 14:52 20:47 02:56 Troponin I < 0.03 < 0.03 < 0.03 (< 0.04) ng/mL - Impressions Impressions Brain MRI 11/14/17 12:02 IMPRESSION: 1. No acute intracranial abnormality. 2. Right occipital and left frontal encephalomalacia in keeping with sequela of prior infarcts. 3. 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 4. Severely motion degraded MRA of the neck. No evident high-grade carotid or vertebral arterial stenosis. D/ / Sae Dumont / Sae Dumont Interpreting Provider: Sae Dumont Head MRA 11/14/17 12:03 IMPRESSION: 1. No acute intracranial abnormality. 2. Right occipital and left frontal encephalomalacia in keeping with sequela of prior infarcts. 3. 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 4. Severely motion degraded MRA of the neck. No evident high-grade carotid or vertebral arterial stenosis. D/ / Sae Dumont / Sae Dumont Interpreting Provider: Sae Dumont Neck MRA 11/14/17 12:03 IMPRESSION: 1. No acute intracranial abnormality. 2. Right occipital and left frontal encephalomalacia in keeping with sequela of prior infarcts. 3. 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 4. Severely motion degraded MRA of the neck. No evident high-grade carotid or vertebral arterial stenosis. D/ / Sae Dumont / Sae Dumont Interpreting Provider: Sae Dumont Echocardiogram 11/14/17 12:04 Impressions: Blood pressure at time of study, 183/79 mmHg. LVEF 65%. Mild left ventricular diastolic dysfunction. Normal right ventricular structure and function. No significant valvular dysfunction. No pulmonary hypertension. No PFO with saline contrast injection. Left Ventricular Wall Motion: Rest Echo Findings All wall segments showed normal motion. Findings: Study Quality * Technically adequate exam. ECG Findings * Normal sinus rhythm. Left Ventricle * LVEF 65%. * Mild left ventricular diastolic dysfunction. * Normal LV chamber size. * Wall thickness measurements not well obtained. Right Ventricle * Normal right ventricular structure and function. Left Atrium * Mildly dilated left atrium. Right Atrium * Normal right atrial size. Aortic Valve * No aortic regurgitation. * Aortic valve not well visualized. * No aortic stenosis. Mitral Valve * Normal mitral valve structure. * No mitral stenosis. * Trace mitral regurgitation. Tricuspid Valve * Tricuspid valve not well visualized. * No tricuspid regurgitation. * Estimated RA pressure is 3 mmHg. * Estimated RVSP is 13 mmHg. * No pulmonary hypertension. Pulmonic Valve * Pulmonic valve is not well visualized. * No pulmonic stenosis. * No pulmonic regurgitation. Pulmonary Artery * Pulmonary artery not well visualized. Aorta * Normally sized aortic root. Pericardium * There is no pericardial effusion present. Interatrial Septum * No evidence of PFO by color Doppler. * No evidence of PFO with agitated saline contrast. IVC * Normal IVC dimensions and inspiratory collapse. Consult Discharge Plan - Plan Referrals: Tico Thompson MD [Primary Care Provider] - 12/02/17 1:20 pm (Follow up appointment has been requested. Office will contact patient with date and time of appointment. ) Casey Perez MD [Partnered Physician] - 11/20/17 11:30 am
[2017-11-15] MEDS ORDERED: hydrALAZINE 25 MG TABLET PO SCH (15:00)
--- NOTE | 2017-11-15 18:22 | Electrocardiograph Report ---
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
[2017-11-15] MEDS: *HR* OxyCODONE/APAP 10/325 TABLET PO PRN (19:30)
[2017-11-15] MEDS: cloNIDine HCl 0.1 MG TABLET PO SCH (20:40)
[2017-11-16] MEDS: Ondansetron 4 MG/2 ML VIAL IVP PRN (03:14)
[2017-11-16 04:51] LABS: Basophils # 0.1 K/mcL (0.0-0.2); Basophils % 0.7 %; Eosinophils # 0.4 K/mcL (0.0-0.6); Eosinophils % 3.8 %; Hemoglobin 13.7 g/dL (12.9-16.9); Immature Granulocytes % 0.9 % (0-4); Lymphocytes # 2.7 K/mcL (0.6-4.6); Lymphocytes % 29.1 %; Mean Corpuscular HGB Conc 33.4 g/dL (31.6-35.5); Mean Corpuscular Hemoglobin 31.2 pg (28.0-33.3); Mean Corpuscular Volume 93.4 fL (83.0-100.0); Mean Platelet Volume 10.1 fL (9.4-12.4); Monocytes # 0.8 K/mcL (0.0-1.3); Neutrophils # 5.2 K/mcL (1.6-8.9); Platelet Count 202 K/mcL (140-400); Red Blood Count 4.39 M/mcL (4.19-5.50); Red Cell Distribution Width 13.3 % (11.5-14.5); Segmented Neutrophils % 56.5 %
[2017-11-16 05:02] LABS: BUN/Creatinine Ratio 12 (6-26); Blood Urea Nitrogen 53 mg/dL (8-23); Calcium 8.7 mg/dL (8.6-10.3); Carbon Dioxide 22 mEq/L (23-29); Chloride 108 mEq/L (98-107); Glucose 83 mg/dL (70-105); Osmolality,Calculated 298 (280-300); Potassium 4.2 mEq/L (3.5-5.1); Sodium 137 mEq/L (136-145); eGFR For African Americans 16 (> 60); eGFR For Non-African Americans 14 (> 60)
[2017-11-16 06:00] LABS: Troponin I < 0.03 ng/mL (< 0.04)
[2017-11-16] MEDS: *HR* Enoxaparin 30 MG/0.3 ML SYRINGE SQ SCH (06:23)
[2017-11-16 07:07] LABS: Chol/HDL Ratio 5.3 (0-4.9)
[2017-11-16] MEDS: Insulin LISPRO 300 UNITS/3 ML VIAL SQ SCH ×3 (08:15→17:07)
[2017-11-16] MEDS: 0.9 % Sodium Chloride 1,000 ML IVC SCH (08:20)
[2017-11-16] MEDS: Insulin NPH 100 UNIT/ML (x5UNIT) SQ SCH ×2 (08:21→21:58)
[2017-11-16] MEDS: Aspirin 325 MG TABLET PO SCH (08:21)
[2017-11-16] MEDS: amLODIPine 5 MG TABLET PO SCH (08:22)
[2017-11-16] MEDS: Gabapentin 300 MG CAPSULE PO SCH (08:22)
[2017-11-16] MEDS: hydrALAZINE 25 MG TABLET PO SCH ×3 (08:22→20:22)
[2017-11-16] MEDS: Metoprolol XL (24 HR) Succ 50 MG TAB.ER.24H PO SCH (08:22)
[2017-11-16] MEDS: Fluticasone Propionate Nasal 50 MCG/SPRAY BOTTLE NS SCH (08:24)
--- NOTE | 2017-11-16 09:17 | Internal Med Progress Note ---
Date of Encounter: 11/16/17 Time of Encounter: 09:17 - Assessment and plan (1) CVA (cerebral vascular accident) Current Visit: Yes Status: Acute Assessment and plan: CT head did show possible subacute new stroke patient did have a stroke back in April 2017 MRI MRA head/neck shows No acute intracranial abnormality. 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 Severely motion degraded MRA of the neck. No evident high-grade carotid or vertebral arterial stenosis." Neurology consult in recommending patient to follow-up with PT with a vestibular specialist to workup on the patient's dizziness-patient will have [facility] on discharge Neurology recommending follow-up as outpatient Monitor blood pressure Continue with aspirin and statin Qualifiers: CVA mechanism: unspecified Qualified Code(s): I63.9 - Cerebral infarction, unspecified (2) Dizziness Current Visit: Yes Status: Acute Assessment and plan: Patient was seen by neurology he does have a history of acute on chronic dizziness and nausea. He has been dizzy since his stroke 2017 CT does show strep from 2017 echo completed EF of 65% no PFO He does have some hypertension during position change continue with home medications PT as outpatient with vestibular specialist [facility] (3) Lung cancer Current Visit: Yes Status: Acute Assessment and plan: Patient follows with oncology-myocardial plan is for surgery and adjuvant chemotherapy Qualifiers: Laterality: unspecified laterality Lung location: unspecified part of lung Qualified Code(s): C34.90 - Malignant neoplasm of unspecified part of unspecified bronchus or lung (4) Chronic kidney disease (CKD) Current Visit: Yes Status: Chronic Assessment and plan: Creatinine and GFR increased - will consult nephrology Dr Marcial Avoid nephrotoxins Qualifiers: Chronic kidney disease stage: stage 4 (severe) Qualified Code(s): N18.4 - Chronic kidney disease, stage 4 (severe) (5) HTN (hypertension) Current Visit: No Status: Acute Assessment and plan: 1 patient's blood pressure has been elevated -he did receive some hydralazine overnight -improving continue with home medications and monitor adjust as needed Qualifiers: Hypertension type: essential hypertension Qualified Code(s): I10 - Essential (primary) hypertension - Time Spent With Patient Total time spent is greater than 50% in coordination of care (as documented) at patient's floor/unit and/or counseling patient: - Subjective Interval history: Patient seen and examined at bedside, denies any pain or discomfort at this time does admit he continues to have some dizziness on position change. Update that neurology recommending PTOT which he agrees that we set up per social service [facility]. Patient does have some elevation in his creatinine will have nephrology see the patient which he agrees. Blood pressure is improved today we will check orthostatics - Constitutional Vitals: Temp Pulse Resp BP Pulse Ox 98.3 F 72 17 166/7 97 11/16/17 06:56 11/16/17 06:56 11/16/17 06:56 11/16/17 06:56 11/16/17 06:56 General appearance: Present: A&O X 3 - Head Head exam: Present: atraumatic, normocephalic - Eye Eye exam: Present: PERRL, conjuntiva pink, sclera anicteric Pupils: Present: PERRL - Neck Neck exam general surgery: Present: supple, trachea midline. Absent: lymphadenopathy - Respiratory Respiratory exam: Present: CTAB. Absent: accessory muscle use, rales, rhonchi, wheezes - Cardiovascular Cardiovascular exam: Present: RRR, +S1, +S2. Absent: diastolic murmur, gallop, rubs, systolic murmur - GI/Abdominal GI/Abdominal exam: Present: normal bowel sounds, soft, no peritoneal signs. Absent: distended, tenderness - Extremities Exam Extremities exam: Present: warm, radial pulses palpable and symmetrical. Absent : calf tenderness, cyanotic, pedal edema - Neurological Exam Neurological exam: Present: CN II-XII intact, oriented X3, no focal deficits. Absent: pronater drift, facial droop, speech deficit - Skin Skin exam: Present: dry, intact Internal Medicine: Result - Labs CBC & Chem 7: 11/16/17 03:28 11/16/17 03:28 Labs: Short CBC 11/16/17 Range/Units 03:28 WBC 9.2 (4.3-11.1) K/mcL Hgb 13.7 (12.9-16.9) g/dL Hct 41.0 (37.5-50.1) % Plt Count 202 (140-400) K/mcL Neutrophils # 5.2 (1.6-8.9) K/mcL BMP 11/16/17 03:28 Sodium 137 Potassium 4.2 Chloride 108 H Carbon Dioxide 22 L BUN 53 H Creatinine 4.36 H Glucose 83 Calcium 8.7 Cardiac Enzymes 11/16/17 Range/Units 03:28 Troponin I < 0.03 (< 0.04) ng/mL Consult Discharge Plan - Plan Referrals: Tico Thompson MD [Primary Care Provider] - 12/02/17 1:20 pm (Follow up appointment has been requested. Office will contact patient with date and time of appointment. ) Casey Perez MD [Partnered Physician] - 11/20/17 11:30 am
[2017-11-16] MEDS: cloNIDine HCl 0.1 MG TABLET PO SCH (20:22)
[2017-11-16] MEDS: *HR* OxyCODONE/APAP 10/325 TABLET PO PRN (20:22)
[2017-11-17 05:24] LABS: Basophils # 0.1 K/mcL (0.0-0.2); Basophils % 0.6 %; Eosinophils # 0.3 K/mcL (0.0-0.6); Eosinophils % 2.9 %; Hematocrit 36.9 % (37.5-50.1); Hemoglobin 12.6 g/dL (12.9-16.9); Immature Granulocytes % 0.9 % (0-4); Lymphocytes # 2.3 K/mcL (0.6-4.6); Lymphocytes % 21.8 %; Mean Corpuscular HGB Conc 34.1 g/dL (31.6-35.5); Mean Corpuscular Hemoglobin 31.6 pg (28.0-33.3); Mean Corpuscular Volume 92.5 fL (83.0-100.0); Monocytes # 0.9 K/mcL (0.0-1.3); Monocytes % 8.5 %; Neutrophils # 6.9 K/mcL (1.6-8.9); Platelet Count 209 K/mcL (140-400); Red Blood Count 3.99 M/mcL (4.19-5.50); Red Cell Distribution Width 13.5 % (11.5-14.5); Segmented Neutrophils % 65.3 %
[2017-11-17 05:36] LABS: Calcium 8.2 mg/dL (8.6-10.3); Potassium 4.8 mEq/L (3.5-5.1)
[2017-11-17] MEDS: *HR* Enoxaparin 30 MG/0.3 ML SYRINGE SQ SCH (05:38)
--- NOTE | 2017-11-17 07:47 | Nephrology Consult Note ---
Date of Encounter: 11/17/17 Time of Encounter: 07:50 Assessment and Plan (1) Chronic kidney disease, stage IV (severe) Current Visit: Yes Status: Acute Patient has aggressive stage IV chronic kidney disease in the setting of diabetes and poorly controlled hypertension. The serum creatinine recently has continued to increase. This may be related to overall progression of his chronic kidney disease in the setting of poorly controlled hypertension. In addition he could be experiencing some relative hypotension now that his blood pressures under better control. In addition to that he also has an elevated postvoid residual which could be contributing to his worsening renal function. At this point time I will suggest a renal ultrasound as well as a urology consultation. I would continue with his current antihypertensive regimen. Nephrotoxins should be avoided. (2) Benign hypertension with chronic kidney disease, stage IV Current Visit: Yes Status: Acute (3) Incomplete emptying of bladder Current Visit: Yes Status: Acute History of Present Illness - Reason for Consult Consult date: 11/17/17 - History of Present Illness This is a 67-year-old male who is followed as an outpatient for stage IV chronic kidney disease in the setting of diabetes and hypertension. Patient presented to the hospital with dizziness. He was noted to have a blood pressure of 233/109. His serum creatinine has been progressively getting worse. Patient denies any change in medications. He denies not taking his antihypertensive medications at home. He denies any difficulty in emptying his bladder although a recent bladder scan showed a postvoid residual of greater than 400 mL. He does have a history of nocturia 2-4 times per night. Currently his blood pressures under better control at 131/81. Patient reports she recently has been diagnosed with lung cancer and is scheduled to have a consultation with the surgeon in [place] tomorrow. He is complaining of some nausea. He denies any vomiting. He does experience some shortness of breath. Past Med Surg Social Fam HX - Past Medical History Medical history: CVA, diabetes, hyperlipidemia, hypertension, renal disease, other Additional medical history: LOW TESTERONE. SLEEP APNEA Psychiatric history: depression - Past Surgical History Surgical History: cholecystectomy, orthopedic, other, other Additional surgical history: BRAIN ANEURYSM - Social History Smoking Status: Former smoker Smokeless Tobacco Status: No Alcohol use: none Drug use: none - Family History Father Hx Family Cardiac Disorders: Yes Mother Living Status: Hx Family Cancer: Yes Brother Hx Family Cardiac Disorders: Yes Hx Family Cancer: Yes Medications and Allergies Gabapentin [Neurontin] 600 mg PO BID 01/08/16 [History] Glimepiride [Amaryl] 8 mg PO DAILY 01/08/16 [History] Metoprolol XL (24 HR) Succ [Toprol Xl] 50 mg PO DAILY 01/08/16 [History] Omeprazole [PriLOSEC] 40 mg PO DAILY 01/08/16 [History] OxyCODONE/APAP 10/325 [Percocet 10/325 MG] 1 tab PO Q6H PRN 01/08/16 [History] Atorvastatin [Lipitor] 80 mg PO HS #60 tablet 01/09/16 [Rx] amLODIPine [Norvasc] 10 mg PO DAILY #60 tablet 01/09/16 [Rx] Tizanidine HCl 4 mg PO Q8H PRN 05/27/16 [History] Nitroglycerin 0.4 mg SL Q5MIN PRN #25 tab.subl 05/28/16 [Rx] Aspirin 325 mg PO DAILY #30 tablet 05/21/17 [Rx] Clopidogrel [Plavix] 75 mg PO DAILY #30 tablet 05/21/17 [Rx] CloNIDine HCl [Kapvay] 0.1 mg PO HS 09/12/17 [History] Mometasone Furoate [Nasonex] 2 spray IH DAILY 09/12/17 [History] Albuterol Sulfate [Ventolin Hfa] 2 puff IH Q4H PRN 11/14/17 [History] Hydralazine HCl 50 mg PO TID 11/14/17 [History] Insulin NPH Human Isophane [Novolin N] 60 unit SQ BID 11/14/17 [History] Insulin Regular, Human [Novolin R] 40 units SQ TIDWM 11/14/17 [History] 3 Allergy/AdvReac Type Severity Reaction Status Date / Time ciprofloxacin [From Cipro] Allergy Hives Verified 11/14/17 12:19 Sulfa (Sulfonamide Allergy Hives Verified 11/14/17 12:19 Antibiotics) celecoxib AdvReac Nausea Verified 11/14/17 12:19 Review of Systems Constitutional: as per HPI Eyes: bilateral: blurred vision (patient denies), diplopia (patient denies) Nose, mouth and throat: no dizziness, no headache(s) Cardiovascular: dyspnea, dyspnea on exertion Respiratory: dyspnea, dyspnea on exertion Gastrointestinal: as per HPI, nausea Genitourinary Male: as per HPI, nocturia Musculoskeletal: no muscle weakness, no numbness Integumentary: no hirsutism, no striae Neurological: dizziness Psychiatric: no depression, no difficulty concentrating Endocrine: as per HPI Exam - Vital Signs Vital signs: Initial Vital Signs Temp Pulse Resp BP Pulse Ox 98.3 F 111 18 233/109 97 11/14/17 09:02 11/14/17 09:02 11/14/17 09:02 11/14/17 09:02 11/14/17 09:02 Vital Signs - Last 8 Hours Temp Pulse Resp BP Pulse Ox 11/17/17 07:37 98 11/17/17 03:17 98.4 F 67 19 135/81 98 Intake and Output 11/16/17 11/16/17 11/17/17 15:59 23:59 07:59 Intake Total 240 / 240 Balance 240 / 240 Intake: Oral 240 / 240 Other: Meal Breakfast Percent of Meal Consumed 100% # Voids 1 1 Weight 115.1 kg Blood Glucose* 195 115 Patient Weight 11/17/17 23:59 Weight 115.1 kg - General Appearance Exam: Patient is alert and oriented. He is in no acute distress. Blood pressure is 131/81. Lungsbreath sounds otherwise clear. Heart regular rate and rhythm with a 2/6 ejection murmur. Abdomen shows normal bowel sounds bruits masses, megaly or tenderness. There is no lower extremity swelling. Results - Lab Results 11/17/17 05:02 11/17/17 05:02 Most recent lab results Calcium 8.2 mg/dL (8.6-10.3) L 11/17/17 05:02 Phosphorus 4.5 mg/dL (2.7-4.5) 11/15/17 02:56 Magnesium 1.6 mg/dL (1.6-2.6) 11/15/17 02:56 Consult Discharge Plan - Plan Referrals: Tico Thompson MD [Primary Care Provider] - 12/02/17 1:20 pm (Follow up appointment has been requested. Office will contact patient with date and time of appointment. ) Casey Perez MD [Partnered Physician] - 11/20/17 11:30 am
[2017-11-17] MEDS: Gabapentin 300 MG CAPSULE PO SCH (08:10)
[2017-11-17] MEDS: Aspirin 325 MG TABLET PO SCH (08:10)
[2017-11-17] MEDS: Metoprolol XL (24 HR) Succ 50 MG TAB.ER.24H PO SCH (08:10)
[2017-11-17] MEDS: Insulin NPH 100 UNIT/ML (x5UNIT) SQ SCH ×2 (08:10→21:30)
[2017-11-17] MEDS: amLODIPine 5 MG TABLET PO SCH (08:10)
[2017-11-17] MEDS: hydrALAZINE 25 MG TABLET PO SCH ×3 (08:10→19:49)
[2017-11-17] MEDS: Fluticasone Propionate Nasal 50 MCG/SPRAY BOTTLE NS SCH (08:11)
[2017-11-17] MEDS: Insulin LISPRO 300 UNITS/3 ML VIAL SQ SCH ×3 (08:18→17:55)
--- NOTE | 2017-11-17 08:30 | Internal Med Progress Note ---
Date of Encounter: 11/17/17 Time of Encounter: 08:30 - Assessment and plan (1) CVA (cerebral vascular accident) Current Visit: Yes Status: Acute Assessment and plan: CT head did show possible subacute new stroke patient did have a stroke back in April 2017 MRI MRA head/neck shows No acute intracranial abnormality. 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 Severely motion degraded MRA of the neck. No evident high-grade carotid or vertebral arterial stenosis." Neurology consult is recommending patient to follow-up with PT with a vestibular specialist to workup on the patient's dizziness-patient will have [facility] on discharge Neurology recommending follow-up as outpatient Monitor blood pressure Continue with aspirin and statin -Dizziness has improved today Qualifiers: CVA mechanism: unspecified Qualified Code(s): I63.9 - Cerebral infarction, unspecified (2) Dizziness Current Visit: Yes Status: Acute Assessment and plan: -This seems to be improving Patient was seen by neurology he does have a history of acute on chronic dizziness and nausea. He has been dizzy since his stroke 2017 CT does show the nodule -echo completed EF of 65% no PFO He does have some hypertension during position change continue with home medications PT as outpatient with vestibular specialist [facility] (3) Chronic kidney disease (CKD) Current Visit: Yes Status: Chronic Assessment and plan: Creatinine and GFR increased - will consult nephrology Dr Marcial - appreciate recommendations Avoid nephrotoxins We will Lasix Badillo for urinary retention Obtain renal ultrasound Qualifiers: Chronic kidney disease stage: stage 4 (severe) Qualified Code(s): N18.4 - Chronic kidney disease, stage 4 (severe) (4) HTN (hypertension) Current Visit: No Status: Acute Assessment and plan: 1 patient's blood pressure has been elevated -he did receive some hydralazine overnight -we will add clonidine twice a day and decrease Norvasc and continue to monitor-continue with hydralazine when necessary Qualifiers: Hypertension type: essential hypertension Qualified Code(s): I10 - Essential (primary) hypertension (5) Urinary retention Current Visit: Yes Status: Acute Assessment and plan: Patient has been demonstrating elevation and creatinine bladder scan performed postvoid residual of 400 mL's. Badillo catheter has been placed Urology has been consulted and Renal ultrasound ordered (6) Small cell lung cancer Current Visit: Yes Status: Acute Assessment and plan: Patient recently diagnosed with small cell lung cancer is being seen by -referred to thoracic surgeon at [place] -patient is concerned since he does have an appointment with the surgeon tomorrow. He is still admitted in the hospital. Advised patient that we will call and reschedule his appointment Referred to Rad onc to discuss radiation Consult oncology as needed continue follow up as outpatient - Time Spent With Patient Total time spent is greater than 50% in coordination of care (as documented) at patient's floor/unit and/or counseling patient: - Subjective Interval history: Patient seen and examined at bedside, denies any pain or discomfort at this time does admit he continues to have some dizziness on position change. Update that neurology recommending PTOT which he agrees that we set up per [facility]. Patient does have some elevation in his creatinine will have nephrology see the patient which he agrees. Blood pressure is improved today we will check orthostatics - Constitutional Vitals: Temp Pulse Resp BP Pulse Ox 98.2 F 92 17 220/96 95 11/17/17 07:48 11/17/17 07:48 11/17/17 07:48 11/17/17 07:48 11/17/17 07:48 General appearance: Present: A&O X 3 Internal Medicine: Result - Labs CBC & Chem 7: 11/17/17 05:02 11/17/17 05:02 Labs: Short CBC 11/17/17 Range/Units 05:02 WBC 10.5 (4.3-11.1) K/mcL Hgb 12.6 L (12.9-16.9) g/dL Hct 36.9 L (37.5-50.1) % Plt Count 209 (140-400) K/mcL Neutrophils # 6.9 (1.6-8.9) K/mcL BMP 11/17/17 05:02 Sodium 136 Potassium 4.8 Chloride 108 H Carbon Dioxide 20 L BUN 50 H Creatinine 4.58 H Glucose 136 H Calcium 8.2 L Cardiac Enzymes 11/16/17 11/16/17 Range/Units 09:37 15:35 Troponin I < 0.03 < 0.03 (< 0.04) ng/mL Consult Discharge Plan - Plan Referrals: Tico Thompson MD [Primary Care Provider] - 12/02/17 1:20 pm (Follow up appointment has been requested. Office will contact patient with date and time of appointment. ) Casey Perez MD [Partnered Physician] - 11/20/17 11:30 am
[2017-11-17] MEDS: cloNIDine HCl 0.1 MG TABLET PO SCH (19:49)
[2017-11-17] MEDS: *HR* OxyCODONE/APAP 10/325 TABLET PO PRN (19:49)
--- NOTE | 2017-11-17 20:24 | Urology - Consult Note ---
Date of Encounter: 11/18/17 Time of Encounter: 20:23 - Assessment and Plan (1) Incomplete emptying of bladder due to benign prostatic hyperplasia Current Visit: Yes Status: Acute Assessment and plan: keep cath in place until renal function stabilizes and his overall health improves. incomplete emptying is likely multifactoreal - outlet obstruction, stroke, etc. renal ultrasound results pending - will follow. may need ct scan if any hydronephrosis bc hx of kidney stones. pt would benefit from tamsulosin but probably should not start med now bc it may increase dizziness Urology CN:HPI Consult date: 11/17/17 History of present illness: pt known to Dr Lira. last seen in 2017 for elevated PSA and was being referred to [facility] for requested 2nd opinion regarding elevated PSA but he states he never went. has known BPH. admitted to hospital. multiple new issues including lung cancer, possible stroke and acute of chronic renal insufficiency. cath placed bc of elevated residuals. pt states he did not feel he was having trouble urinating. Past Med Surg Social Fam HX - Past Medical History Medical history: CVA, diabetes, hyperlipidemia, hypertension, renal disease, other Additional medical history: LOW TESTERONE. SLEEP APNEA Psychiatric history: depression - Past Surgical History Surgical History: cholecystectomy, orthopedic, other, other Additional surgical history: BRAIN ANEURYSM - Social History Smoking Status: Former smoker Smokeless Tobacco Status: No Alcohol use: none Drug use: none - Family History Father Hx Family Cardiac Disorders: Yes Mother Living Status: Hx Family Cancer: Yes Brother Hx Family Cardiac Disorders: Yes Hx Family Cancer: Yes Medications and Allergies Gabapentin [Neurontin] 600 mg PO BID 01/08/16 [History] Glimepiride [Amaryl] 8 mg PO DAILY 01/08/16 [History] Metoprolol XL (24 HR) Succ [Toprol Xl] 50 mg PO DAILY 01/08/16 [History] Omeprazole [PriLOSEC] 40 mg PO DAILY 01/08/16 [History] OxyCODONE/APAP 10/325 [Percocet 10/325 MG] 1 tab PO Q6H PRN 01/08/16 [History] Atorvastatin [Lipitor] 80 mg PO HS #60 tablet 01/09/16 [Rx] amLODIPine [Norvasc] 10 mg PO DAILY #60 tablet 01/09/16 [Rx] Tizanidine HCl 4 mg PO Q8H PRN 05/27/16 [History] Nitroglycerin 0.4 mg SL Q5MIN PRN #25 tab.subl 05/28/16 [Rx] Aspirin 325 mg PO DAILY #30 tablet 05/21/17 [Rx] Clopidogrel [Plavix] 75 mg PO DAILY #30 tablet 05/21/17 [Rx] CloNIDine HCl [Kapvay] 0.1 mg PO HS 09/12/17 [History] Mometasone Furoate [Nasonex] 2 spray IH DAILY 09/12/17 [History] Albuterol Sulfate [Ventolin Hfa] 2 puff IH Q4H PRN 11/14/17 [History] Hydralazine HCl 50 mg PO TID 11/14/17 [History] Insulin NPH Human Isophane [Novolin N] 60 unit SQ BID 11/14/17 [History] Insulin Regular, Human [Novolin R] 40 units SQ TIDWM 11/14/17 [History] 3 Allergy/AdvReac Type Severity Reaction Status Date / Time ciprofloxacin [From Cipro] Allergy Hives Verified 11/14/17 12:19 Sulfa (Sulfonamide Allergy Hives Verified 11/14/17 12:19 Antibiotics) celecoxib AdvReac Nausea Verified 11/14/17 12:19 Review of Systems - Constitutional fatigue, no chills, no fever(s) - EENT Nose, mouth and throat: dizziness - Cardiovascular no chest pain - Gastrointestinal no abdominal pain - Genitourinary change in urinary stream - Musculoskeletal back pain - Integumentary no erythema - Neurological no confusion - Psychiatric no anxiety - Hematologic/Lymphatic no easy bleeding - Allergic/Immunologic no throat swelling Exam Initial Vital Signs Temp Pulse Resp BP Pulse Ox 98.3 F 111 18 233/109 97 11/14/17 09:02 11/14/17 09:02 11/14/17 09:02 11/14/17 09:02 11/14/17 09:02 - General physical appearance Present: no distress - Eyes Present: PERRL, conjunctiva is clear - ENT Present: normal nares - Neck Present: no masses, no lymphadenopathy - Respiratory Present: normal respiratory effort - Cardiovascular Cardiovascular exam IM: RRR - Abdomen Abdomen: Present: soft. Absent: masses - Additional Findings bueno cath with clear urine. Urology Results - Labs 11/17/17 05:02 11/17/17 05:02 Abnormal lab results RBC 3.99 M/mcL (4.19-5.50) L 11/17/17 05:02 Hgb 12.6 g/dL (12.9-16.9) L 11/17/17 05:02 Hct 36.9 % (37.5-50.1) L 11/17/17 05:02 Chloride 108 mEq/L (98-107) H 11/17/17 05:02 Carbon Dioxide 20 mEq/L (23-29) L 11/17/17 05:02 BUN 50 mg/dL (8-23) H 11/17/17 05:02 Creatinine 4.58 mg/dL (0.70-1.30) H 11/17/17 05:02 Est GFR ( Amer) 16 (> 60) L 11/17/17 05:02 Est GFR (Non-Af Amer) 13 (> 60) L 11/17/17 05:02 Glucose 136 mg/dL (70-105) H 11/17/17 05:02 POC Glucose 262 mg/dL (70-99) H 11/17/17 11:24 Calcium 8.2 mg/dL (8.6-10.3) L 11/17/17 05:02 Alkaline Phosphatase 164 Units/L (34-104) H 11/14/17 09:41 Triglycerides 383 mg/dL (< 150) H 11/15/17 02:56 VLDL Cholesterol, Calc 77 mg/dL (< 31) H 11/15/17 02:56 HDL Cholesterol 27 mg/dL (40-59) L 11/15/17 02:56 Cholesterol/HDL Ratio 5.3 (0-4.9) H 11/15/17 02:56 Urine Protein >=1000 mg/dL (Neg-Trace) H 11/14/17 09:50 Urine Glucose (UA) 250 mg/dL (Normal) H 11/14/17 09:50 Ur Squamous Epith Cells Many per lpf (None-Few) H 11/14/17 09:50 Diabetes panel 11/17/17 Range/Units 05:02 Sodium 136 (136-145) mEq/L Potassium 4.8 (3.5-5.1) mEq/L Chloride 108 H (98-107) mEq/L Carbon Dioxide 20 L (23-29) mEq/L BUN 50 H (8-23) mg/dL Creatinine 4.58 H (0.70-1.30) mg/dL Glucose 136 H (70-105) mg/dL Calcium 8.2 L (8.6-10.3) mg/dL Calcium panel 11/17/17 Range/Units 05:02 Calcium 8.2 L (8.6-10.3) mg/dL Pituitary panel 11/17/17 Range/Units 05:02 Sodium 136 (136-145) mEq/L Potassium 4.8 (3.5-5.1) mEq/L Chloride 108 H (98-107) mEq/L Carbon Dioxide 20 L (23-29) mEq/L BUN 50 H (8-23) mg/dL Creatinine 4.58 H (0.70-1.30) mg/dL Glucose 136 H (70-105) mg/dL Calcium 8.2 L (8.6-10.3) mg/dL Adrenal panel 11/17/17 Range/Units 05:02 Sodium 136 (136-145) mEq/L Potassium 4.8 (3.5-5.1) mEq/L Chloride 108 H (98-107) mEq/L Carbon Dioxide 20 L (23-29) mEq/L BUN 50 H (8-23) mg/dL Creatinine 4.58 H (0.70-1.30) mg/dL Glucose 136 H (70-105) mg/dL Calcium 8.2 L (8.6-10.3) mg/dL All other labs normal. Consult Discharge Plan - Plan Referrals: Tico Thompson MD [Primary Care Provider] - 12/02/17 1:20 pm (Follow up appointment has been requested. Office will contact patient with date and time of appointment. ) Casey Perez MD [Partnered Physician] - 11/20/17 11:30 am
[2017-11-18] MEDS: Ondansetron 4 MG/2 ML VIAL IVP PRN (04:54)
[2017-11-18] MEDS: *HR* Enoxaparin 30 MG/0.3 ML SYRINGE SQ SCH (04:57)
[2017-11-18] MEDS ORDERED: Nitroglycerin 1 INCH/GM PACKET TP ONE (05:39)
--- NOTE | 2017-11-18 07:01 | Electrocardiograph Report ---
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
[2017-11-18] MEDS: Insulin NPH 100 UNIT/ML (x5UNIT) SQ SCH ×2 (07:39→19:36)
[2017-11-18] MEDS: Gabapentin 300 MG CAPSULE PO SCH (07:44)
[2017-11-18] MEDS: Metoprolol XL (24 HR) Succ 50 MG TAB.ER.24H PO SCH (07:44)
[2017-11-18] MEDS: Aspirin 325 MG TABLET PO SCH (07:44)
[2017-11-18] MEDS: cloNIDine HCl 0.1 MG TABLET PO SCH ×2 (07:45→19:35)
[2017-11-18] MEDS: hydrALAZINE 25 MG TABLET PO SCH ×3 (07:46→19:36)
[2017-11-18] MEDS: amLODIPine 5 MG TABLET PO SCH (07:46)
[2017-11-18] MEDS: Fluticasone Propionate Nasal 50 MCG/SPRAY BOTTLE NS SCH (07:47)
[2017-11-18] MEDS: 0.9 % Sodium Chloride 1,000 ML IVC SCH (07:49)
[2017-11-18] MEDS: Insulin LISPRO 300 UNITS/3 ML VIAL SQ SCH ×3 (08:08→17:30)
[2017-11-18 08:43] LABS: Basophils # 0.1 K/mcL (0.0-0.2); Basophils % 0.5 %; Eosinophils # 0.3 K/mcL (0.0-0.6); Eosinophils % 2.5 %; Hematocrit 36.6 % (37.5-50.1); Hemoglobin 12.6 g/dL (12.9-16.9); Immature Granulocytes % 0.6 % (0-4); Lymphocytes # 1.8 K/mcL (0.6-4.6); Lymphocytes % 16.7 %; Mean Corpuscular HGB Conc 34.4 g/dL (31.6-35.5); Mean Corpuscular Hemoglobin 31.7 pg (28.0-33.3); Monocytes # 0.7 K/mcL (0.0-1.3); Monocytes % 6.3 %; Neutrophils # 8.1 K/mcL (1.6-8.9); Platelet Count 201 K/mcL (140-400); Red Blood Count 3.98 M/mcL (4.19-5.50); Red Cell Distribution Width 13.3 % (11.5-14.5); Segmented Neutrophils % 73.4 %
--- NOTE | 2017-11-18 09:55 | Internal Med Progress Note ---
Date of Encounter: 11/18/17 Time of Encounter: 09:50 - Assessment and plan (1) CVA (cerebral vascular accident) Current Visit: Yes Status: Acute Assessment and plan: CT head did show possible subacute new stroke patient did have a stroke back in April 2017 MRI MRA head/neck shows No acute intracranial abnormality. 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 Severely motion degraded MRA of the neck. No evident high-grade carotid or vertebral arterial stenosis." Neurology consult is recommending patient to follow-up with PT with a vestibular specialist to workup on the patient's dizziness-patient will have [facility] on discharge Neurology recommending follow-up as outpatient Monitor blood pressure Continue with aspirin and statin -Dizziness has improved -We will check loop recorder Qualifiers: CVA mechanism: unspecified Qualified Code(s): I63.9 - Cerebral infarction, unspecified (2) Dizziness Current Visit: Yes Status: Acute Assessment and plan: -This seems to be improving Patient was seen by neurology he does have a history of acute on chronic dizziness and nausea. He has been dizzy since his stroke 2017 CT does show the nodule -echo completed EF of 65% no PFO-we will check loop recorder per cardiology He does have some hypertension during position change continue with home medications PT as outpatient with vestibular specialist [facility] (3) Chronic kidney disease (CKD) Current Visit: Yes Status: Chronic Assessment and plan: Creatinine and GFR increased - will consult nephrology Dr Marcial - appreciate recommendations Avoid nephrotoxins We will Lasix Badillo for urinary retention Obtain renal ultrasound Qualifiers: Chronic kidney disease stage: stage 4 (severe) Qualified Code(s): N18.4 - Chronic kidney disease, stage 4 (severe) (4) HTN (hypertension) Current Visit: No Status: Acute Assessment and plan: 1 patient's blood pressure has been elevated -overnight. Nitroglycerin paste has been placed. We did increase his clonidine decrease Norvasc hydralazine as needed-seems to have improved we will continue to monitor. Qualifiers: Hypertension type: essential hypertension Qualified Code(s): I10 - Essential (primary) hypertension (5) Urinary retention Current Visit: Yes Status: Acute Assessment and plan: Patient has been demonstrating elevation and creatinine bladder scan performed postvoid residual of 400 mL's. Badillo catheter has been placed Urology has been consulted and Renal ultrasound ordered-awaiting results (6) Small cell lung cancer Current Visit: Yes Status: Acute Assessment and plan: Patient recently diagnosed with small cell lung cancer is being seen by -referred to thoracic surgeon at [place] -patient is concerned since he does have an appointment with the surgeon today. He is still admitted in the hospital. Advised patient that we will call and reschedule his appointment-reschedule for next Saturday Referred to Rad onc to discuss radiation outpatient Consult oncology as needed continue follow up as outpatient (7) DVT prophylaxis Current Visit: Yes Status: Acute Assessment and plan: Lovenox - Time Spent With Patient Total time spent is greater than 50% in coordination of care (as documented) at patient's floor/unit and/or counseling patient: - Subjective Interval history: Patient seen and examined at bedside, He did have an elevated BP overnight, increased clonidine to BID- denies any pain or discomfort. Nursing staff rescheduled surgery appointment. Awaiting renal ultrasound results. Reviewed tx plan with patient and girlfriend at bedside. Verbalized understanding - Constitutional Vitals: Temp Pulse Resp BP Pulse Ox 98.5 F 85 16 151/67 97 11/18/17 07:07 11/18/17 07:07 11/18/17 07:07 11/18/17 07:07 11/18/17 07:57 General appearance: Present: A&O X 3 - Head Head exam: Present: atraumatic, normocephalic - Eye Eye exam: Present: PERRL, conjuntiva pink, sclera anicteric Pupils: Present: PERRL - Neck Neck exam general surgery: Present: supple, trachea midline. Absent: lymphadenopathy - Respiratory Respiratory exam: Present: CTAB. Absent: accessory muscle use, rales, rhonchi, wheezes - Cardiovascular Cardiovascular exam: Present: RRR, +S1, +S2. Absent: diastolic murmur, gallop, rubs, systolic murmur - GI/Abdominal GI/Abdominal exam: Present: normal bowel sounds, soft, no peritoneal signs. Absent: distended, tenderness - Extremities Exam Extremities exam: Present: warm, radial pulses palpable and symmetrical. Absent : calf tenderness, cyanotic, pedal edema - Neurological Exam Neurological exam: Present: CN II-XII intact, oriented X3, no focal deficits. Absent: pronater drift, facial droop, speech deficit - Skin Skin exam: Present: dry, intact Internal Medicine: Result - Labs CBC & Chem 7: 11/18/17 08:05 11/18/17 08:05 Labs: Short CBC 11/18/17 Range/Units 08:05 WBC 11.0 (4.3-11.1) K/mcL Hgb 12.6 L (12.9-16.9) g/dL Hct 36.6 L (37.5-50.1) % Plt Count 201 (140-400) K/mcL Neutrophils # 8.1 (1.6-8.9) K/mcL Consult Discharge Plan - Plan Referrals: Tico Thompson MD [Primary Care Provider] - 12/02/17 1:20 pm (Follow up appointment has been requested. Office will contact patient with date and time of appointment. ) Jeramy Valdes MD [Non-Partnered Physician] - 11/25/17 11:15 am ([phone] ) Casey Perez MD [Partnered Physician] - 11/20/17 11:30 am
[2017-11-18 11:12] LABS: Calcium 8.4 mg/dL (8.6-10.3); Potassium 4.7 mEq/L (3.5-5.1)
--- NOTE | 2017-11-18 12:15 | Nephrology Progress Note ---
Date of Encounter: 11/18/17 Time of Encounter: 11:55 - Assessment and Plan (1) Chronic kidney disease (CKD) Current Visit: Yes Status: Acute Progressiv CKD in setting diabetes and poorly controlled HTN. Renal US pending. Urolog consult appreciated. Creat stable 4.54 Avoid nephrotoxins. Accurate I&O. Will continue to monitor Qualifiers: Chronic kidney disease stage: stage 4 (severe) Qualified Code(s): N18.4 - Chronic kidney disease, stage 4 (severe) Subjective Principal diagnosis: dizziness Interval history: Laying in bed, watching tv. at bedside. States Renal US scheduled for 3:30 pm today. Objective - Vital Signs Vital signs: Vital Signs Temp Pulse Resp BP Pulse Ox 11/18/17 11:37 98.1 F 65 14 114/57 97 11/18/17 07:57 97 11/18/17 07:07 98.5 F 85 16 151/67 97 11/18/17 06:57 150/72 11/18/17 05:26 173/74 11/18/17 03:45 187/84 11/18/17 03:39 98.1 F 71 18 99 11/17/17 21:29 153/59 11/17/17 21:22 166/63 11/17/17 18:43 98.3 F 71 18 197/75 96 11/17/17 15:53 99.2 F 67 17 151/62 96 Intake and Output 11/17/17 11/18/17 11/18/17 23:59 07:59 15:59 Intake Total 360 / 360 Output Total 700 / 700 1900 / 1900 400 / 400 Balance -700 / -700 -1900 / -1900 -40 / -40 Intake: Oral 360 / 360 Output: Urine 1900 / 1900 Straight Cath 400 / 400 Catheter 700 / 700 Other: Meal Breakfast Percent of Meal Consumed 100% Blood Glucose* 116 146 152 - General Appearance General appearance: Present: well-developed, well-nourished, appears started age , obese EENT: Present: mucous membranes moist Neck: Present: no JVD Respiratory: Present: clear Cardiology: Present: no edema Gastrointestinal: Present: normoactive bowel sounds, no tenderness Integumentary: Present: warm and dry Neurologic: Present: alert and oriented x3 - Lab 11/18/17 08:05 11/18/17 08:05 Most recent lab results Calcium 8.4 mg/dL (8.6-10.3) L 11/18/17 08:05 Phosphorus 4.5 mg/dL (2.7-4.5) 11/15/17 02:56 Magnesium 1.6 mg/dL (1.6-2.6) 11/15/17 02:56 Consult Discharge Plan - Plan Referrals: Tico Thompson MD [Primary Care Provider] - 12/02/17 1:20 pm (Follow up appointment has been requested. Office will contact patient with date and time of appointment. ) Jeramy Valdes MD [Non-Partnered Physician] - 11/25/17 11:15 am ([phone] ) Casey Perez MD [Partnered Physician] - 11/20/17 11:30 am
--- NOTE | 2017-11-18 14:10 | Event Note ---
Date of Encounter: 11/18/17 Time of Encounter: 13:30 - Cardiology Event Note Requested Loop recorder interrogation for TIA symptoms by primary service. Loop recorder findings: no events or arrhythmias recorded. Formal report to be placed on chart. Discussed and reviewed with Dr. Wiley.
[2017-11-18] MEDS: *HR* OxyCODONE/APAP 10/325 TABLET PO PRN (19:36)
[2017-11-19] MEDS: Ondansetron 4 MG/2 ML VIAL IVP PRN (04:35)
[2017-11-19 05:43] LABS: Basophils # 0.1 K/mcL (0.0-0.2); Basophils % 0.6 %; Eosinophils # 0.3 K/mcL (0.0-0.6); Eosinophils % 3.7 %; Hematocrit 35.3 % (37.5-50.1); Hemoglobin 11.9 g/dL (12.9-16.9); Immature Granulocytes % 0.6 % (0-4); Lymphocytes # 2.3 K/mcL (0.6-4.6); Lymphocytes % 24.2 %; Mean Corpuscular HGB Conc 33.7 g/dL (31.6-35.5); Mean Corpuscular Hemoglobin 30.5 pg (28.0-33.3); Mean Corpuscular Volume 90.5 fL (83.0-100.0); Mean Platelet Volume 10.2 fL (9.4-12.4); Monocytes # 0.7 K/mcL (0.0-1.3); Monocytes % 7.7 %; Neutrophils # 5.9 K/mcL (1.6-8.9); Platelet Count 211 K/mcL (140-400); Red Cell Distribution Width 13.7 % (11.5-14.5); Segmented Neutrophils % 63.2 %
[2017-11-19 05:54] LABS: Calcium 8.5 mg/dL (8.6-10.3); Potassium 4.9 mEq/L (3.5-5.1)
[2017-11-19] MEDS: *HR* Enoxaparin 30 MG/0.3 ML SYRINGE SQ SCH (06:09)
--- NOTE | 2017-11-19 06:55 | Event Note ---
Date of Encounter: 11/19/17 Time of Encounter: 06:53 reviewed renal ultrasound. no obvious evidence of hydronephrosis or obstruction. lobular appearance of kidney not likely clinically significant. unfortunately renal function not improving. defer management to Nephrology. if obstruction still suspected, could obtain ct stone protocol but not absolutely necessary based on ultrasound. cath in place until acute issues resolved.
[2017-11-19] MEDS: Gabapentin 300 MG CAPSULE PO SCH (07:48)
[2017-11-19] MEDS: Insulin NPH 100 UNIT/ML (x5UNIT) SQ SCH (07:48)
[2017-11-19] MEDS: Fluticasone Propionate Nasal 50 MCG/SPRAY BOTTLE NS SCH (07:48)
[2017-11-19] MEDS: cloNIDine HCl 0.1 MG TABLET PO SCH (07:48)
[2017-11-19] MEDS: Aspirin 325 MG TABLET PO SCH (07:48)
[2017-11-19] MEDS: amLODIPine 5 MG TABLET PO SCH (07:49)
[2017-11-19] MEDS: Metoprolol XL (24 HR) Succ 50 MG TAB.ER.24H PO SCH (07:49)
[2017-11-19] MEDS: hydrALAZINE 25 MG TABLET PO SCH ×2 (07:50→15:47)
--- NOTE | 2017-11-19 08:38 | Nephrology Progress Note ---
Date of Encounter: 11/19/17 Time of Encounter: 08:37 - Assessment and Plan (1) Chronic kidney disease, stage IV (severe) Current Visit: Yes Status: Acute Gonad a calcium channel asher to the patient's antihypertensive regimen. He will require follow-up as an outpatient for his renal function. There is no acute indication to initiate dialysis during this hospital stay. Urology has recommended continuing the Badillo catheter because of a history of BPH. (2) Benign hypertension with chronic kidney disease, stage IV Current Visit: Yes Status: Acute (3) Incomplete emptying of bladder Current Visit: Yes Status: Acute Subjective Principal diagnosis: dizziness Interval history: The patient continues to experience chronic dizziness which she has had since his previous stroke. Blood pressure remains a bit on the high side. Renal function is relatively stable. GFR is around 12. Urine output is excellent. A Badillo catheter is in place. Patient denies any other new complaints. Objective - Vital Signs Vital signs: Vital Signs Temp Pulse Resp BP Pulse Ox 11/19/17 07:57 97 11/19/17 06:59 98.5 F 68 15 164/68 97 11/19/17 06:08 172/71 11/19/17 03:48 98.6 F 72 16 165/76 97 11/18/17 23:57 182/79 11/18/17 22:56 98.6 F 70 16 157/75 93 11/18/17 19:40 94 11/18/17 19:00 98.1 F 73 16 191/73 94 11/18/17 16:18 97.5 F L 77 18 162/71 98 11/18/17 11:37 98.1 F 65 14 114/57 97 Intake and Output 11/18/17 11/19/17 11/19/17 23:59 07:59 15:59 Intake Total 700 / 700 Output Total 950 / 950 1850 / 1850 Balance -950 / -950 -1150 / -1150 Intake: Oral 700 / 700 Output: Catheter 950 / 950 1850 / 1850 Other: Weight 114.9 kg Blood Glucose* 107 169 Patient Weight 11/19/17 23:59 Weight 114.9 kg - General Appearance Exam: Patient is alert and oriented. In no acute distress. Lungs diminished breath sounds otherwise clear to auscultation. Heart regular rate and rhythm. Abdomen is benign. There is no lower extremity swelling. - Lab 11/19/17 05:09 11/19/17 05:09 Most recent lab results Calcium 8.5 mg/dL (8.6-10.3) L 11/19/17 05:09 Phosphorus 4.5 mg/dL (2.7-4.5) 11/15/17 02:56 Magnesium 1.6 mg/dL (1.6-2.6) 11/15/17 02:56 Consult Discharge Plan - Plan Referrals: Tico Thompson MD [Primary Care Provider] - 12/02/17 1:20 pm (Follow up appointment has been requested. Office will contact patient with date and time of appointment. ) Jeramy Valdes MD [Non-Partnered Physician] - 11/25/17 11:15 am ([phone] ) Casey Perez MD [Partnered Physician] - 11/20/17 11:30 am
[2017-11-19] MEDS: Insulin LISPRO 300 UNITS/3 ML VIAL SQ SCH ×2 (08:56→12:59)
[2017-11-19 15:26] VITALS: BP 164/85
--- NOTE | 2017-11-19 15:53 | Physician Discharge Referral ---
Home Health/Hosp Referral Info Transfer to: Home Health - Diagnosis (1) Dizziness Status: Resolved (2) Chronic kidney disease (CKD) Status: Acute (3) Lung cancer Status: Chronic (4) Hypertensive emergency Status: Acute (5) Urinary retention Status: Acute (6) Small cell lung cancer Status: Chronic - Respiratory Orders Smoking Cessation: Smoking cessation has been advised. For more information, call the [place] Tobacco Quit Line at 5-373-AYKO-NOW. - Diet/Nutrition Diet/Nutrition Orders: Cardiac - Activity Activity Orders: Up ad alaina - Services Needed Following services are medically necessary services: Nursing, Physical Therapy, Occupational Therapy - Transfer Medications Home Medications: Gabapentin [Neurontin] 600 mg PO BID 01/08/16 [History] Glimepiride [Amaryl] 8 mg PO DAILY 01/08/16 [History] Metoprolol XL (24 HR) Succ [Toprol Xl] 50 mg PO DAILY 01/08/16 [History] Omeprazole [PriLOSEC] 40 mg PO DAILY 01/08/16 [History] OxyCODONE/APAP 10/325 [Percocet 10/325 MG] 1 tab PO Q6H PRN 01/08/16 [History] Atorvastatin [Lipitor] 80 mg PO HS #60 tablet 01/09/16 [Rx] amLODIPine [Norvasc] 10 mg PO DAILY #60 tablet 01/09/16 [Rx] Tizanidine HCl 4 mg PO Q8H PRN 05/27/16 [History] Nitroglycerin 0.4 mg SL Q5MIN PRN #25 tab.subl 05/28/16 [Rx] Aspirin 325 mg PO DAILY #30 tablet 05/21/17 [Rx] Clopidogrel [Plavix] 75 mg PO DAILY #30 tablet 05/21/17 [Rx] CloNIDine HCl [Kapvay] 0.1 mg PO HS 09/12/17 [History] Mometasone Furoate [Nasonex] 2 spray IH DAILY 09/12/17 [History] Albuterol Sulfate [Ventolin Hfa] 2 puff IH Q4H PRN 11/14/17 [History] Hydralazine HCl 50 mg PO TID 11/14/17 [History] Insulin NPH Human Isophane [Novolin N] 60 unit SQ BID 11/14/17 [History] Insulin Regular, Human [Novolin R] 40 units SQ TIDWM 11/14/17 [History] Allergies/Adverse Reactions: 3 Allergy/AdvReac Type Severity Reaction Status Date / Time ciprofloxacin [From Cipro] Allergy Hives Verified 11/14/17 12:19 Sulfa (Sulfonamide Allergy Hives Verified 11/14/17 12:19 Antibiotics) celecoxib AdvReac Nausea Verified 11/14/17 12:19 Certification: Further, I certify that my clinical findings support that this patient is homebound (i.e. absences from home require considerable and taxing effort and are for medical reasons or judaism services or infrequently or short duration when for other reasons). Homebound Reason: Patient requires assistance of a person or device to safely leave home, Altered mental status requiring supervision when leaving home, Severity of cardiac or pulmonary status limits activity tolerance Attestation: My signature below is to certify that this patient is under my care and that I, or nurse practitioner, or a physician's events administrative assistant working with me, has a face-to -face encounter with this patient.
--- NOTE | 2017-11-19 15:58 | Discharge Summary ---
- NOTES TO OUTPATIENT PROVIDER Notes to Outpatient Provider: f/u with urology within 1-2 weeks,. f/u with nephrology within 1-2 weeks,. f/u with neurology within 1-2 weeks. f/u with oncology within 1-2 weeks. f/u with PCP within 1 week. [facility]ul[facility] rehab Date of Encounter: 11/19/17 Time of Encounter: 15:56 - Discharge Diagnosis (1) Dizziness Priority: Primary Status: Acute (2) Chronic kidney disease (CKD) Priority: Primary Status: Acute Qualifiers: Chronic kidney disease stage: stage 4 (severe) Qualified Code(s): N18.4 - Chronic kidney disease, stage 4 (severe) (3) Lung cancer Priority: Secondary Status: Chronic Qualifiers: Laterality: unspecified laterality Lung location: unspecified part of lung Qualified Code(s): C34.90 - Malignant neoplasm of unspecified part of unspecified bronchus or lung (4) Hypertensive emergency Priority: Primary Status: Acute (5) Urinary retention Priority: Primary Status: Acute (6) Small cell lung cancer Priority: Secondary Status: Chronic Hospital course: Mr. Xavier is a 67 year old male with past medical history of diabetes, hypertension, CK D stage IV, lung cancer, and a stroke presented with dizziness. Patient had a loop recorder implanted, which was interrogated by the cardiology and the showed no arrhythmia. MRI and MRA revealed in no acute stroke. Neurology was consult, and thought patient dizziness is likely due to benign paroxysmal positional vertigo, and was referred to physical therapy for vestibular rehabilitation. During the hospital stay, patient was found to have worsening renal function, nephrology was consulted, outpatient follow-up was recommended. Patient also was found to have urinary retention, urology recommended outpatient follow-up. Patient blood pressure was elevated, blood pressure medicine was adjusted. Patient will be discharged home today and he was instructed to take the blood pressure daily and keep a diary, follow up with primary care physician for hypertension management. Patient was instructed to follow-up with nephrology to manage chronic kidney disease. Patient was instructed to follow-up with urology for urinary retention and BPH. Discharge discussed with: patient - Time Spent with Patient Total time spent providing and/or coordinating discharge services: Less than 30 minutes - Discharge Medications Home Medications: Gabapentin [Neurontin] 600 mg PO BID 01/08/16 [History] Glimepiride [Amaryl] 8 mg PO DAILY 01/08/16 [History] Metoprolol XL (24 HR) Succ [Toprol Xl] 50 mg PO DAILY 01/08/16 [History] Omeprazole [PriLOSEC] 40 mg PO DAILY 01/08/16 [History] OxyCODONE/APAP 10/325 [Percocet 10/325 MG] 1 tab PO Q6H PRN 01/08/16 [History] Atorvastatin [Lipitor] 80 mg PO HS #60 tablet 01/09/16 [Rx] amLODIPine [Norvasc] 10 mg PO DAILY #60 tablet 01/09/16 [Rx] Tizanidine HCl 4 mg PO Q8H PRN 05/27/16 [History] Nitroglycerin 0.4 mg SL Q5MIN PRN #25 tab.subl 05/28/16 [Rx] Aspirin 325 mg PO DAILY #30 tablet 05/21/17 [Rx] Clopidogrel [Plavix] 75 mg PO DAILY #30 tablet 05/21/17 [Rx] Mometasone Furoate [Nasonex] 2 spray IH DAILY 09/12/17 [History] Albuterol Sulfate [Ventolin Hfa] 2 puff IH Q4H PRN 11/14/17 [History] Hydralazine HCl 50 mg PO TID 11/14/17 [History] Insulin NPH Human Isophane [Novolin N] 60 unit SQ BID 11/14/17 [History] Insulin Regular, Human [Novolin R] 40 units SQ TIDWM 11/14/17 [History] cloNIDine HCl [CloNIDine HCl] 0.1 mg PO BID tablet 11/19/17 [Rx] Allergies/Adverse Reactions: 3 Allergy/AdvReac Type Severity Reaction Status Date / Time ciprofloxacin [From Cipro] Allergy Hives Verified 11/14/17 12:19 Sulfa (Sulfonamide Allergy Hives Verified 11/14/17 12:19 Antibiotics) celecoxib AdvReac Nausea Verified 11/14/17 12:19 Date of admission: 11/15/17 14:23 Primary care physician: Tico Thompson MD Consults: 11/16/17 11:11 Consult to Nephrology [CONS] Routine Consulting Provider: [facility] Reason for Consult: elevated creatinine Time Notified: :11 Call Completed: Yes 11/17/17 10:13 Consult to Urology [CONS] Routine Consulting Provider: [facility] Reason for Consult: urinary retention Time Notified: 10:13 Call Completed: Yes - Constitutional Vitals: Temp Pulse Resp BP Pulse Ox 97.9 F 72 15 164/85 92 11/19/17 11:25 11/19/17 11:25 11/19/17 11:25 11/19/17 15:25 11/19/17 11:25 General appearance: Present: A&O X 3 Exam: PHYSICAL EXAMINATION: GENERAL APPEARANCE: The patient is alert, oriented and in no acute distress. HEENT: Head is normocephalic. The sinuses are nontender. Pupils are equal and reactive. The nares are patent. Oropharynx clear without lesions. NECK: Supple without lymphadenopathy. HEART: Regular rate and rhythm. LUNGS: No crackles or wheezes are heard. ABDOMEN: Soft, nontender, nondistended with good bowel sounds heard. Inguinal area is normal. EXTREMITIES: Without cyanosis, clubbing or edema. NEUROLOGICAL: Gross nonfocal. SKIN: Warm and dry without any rash. - Patient Status Disposition: Home Health Service Condition: Fair Functional capacity at discharge: independent ambulation Overall status at discharge: patient is back to baseline - Discharge Instructions Follow Up With: Tico Thompson MD [Primary Care Provider] - 12/02/17 1:20 pm (Follow up appointment has been requested. Office will contact patient with date and time of appointment. ) Garrison Brannon DO [Non-Partnered Physician] - Jeramy Valdes MD [Non-Partnered Physician] - 11/25/17 11:15 am ([phone] ) Musa Lira MD [Partnered Physician] - Casey Perez MD [Partnered Physician] - 11/20/17 11:30 am - Diet and Activity Activity: increase activity as tolerated Diet: diabetic diet, low fat, low cholesterol
[2017-11-19] MEDS ORDERED: amLODIPine 5 MG TABLET PO SCH (21:00)
== END 2017-11-19 17:12 | disposition home health service (06) | DRG 65 ==
LOC: 3BNU 08:59 → EMEROO 08:59 → 3BNU 12:39
PROVIDERS: ADMIT Hospitalist; ATTEND Hospitalist

== ENCOUNTER 2018-03-01 14:09 | Inpatient (IN) ==
[2018-03-01] MEDS ORDERED: 0.9 % Sodium Chloride 1,000 ML IVC ONE ×3 (14:21→17:45)
--- NOTE | 2018-03-01 14:22 | Emergency Department Note ---
Disposition Clinical Impression: Pneumonia, Confusion, Altered mental status, Sepsis Disposition: Admitted As Inpatient Condition: Fair General Adult HPI - General Chief complaint: ED Altered Mental Status Stated complaint: AMS Time Seen by Provider: 03/01/18 14:10 Source: patient, EMS Limitations: altered mental status - History of Present Illness Pain Scale: 0 - Related Data Home Medications Medication Instructions Recorded Confirmed Omeprazole [PriLOSEC] 40 mg PO DAILY 01/08/16 03/01/18 OxyCODONE/APAP 10/325 [Percocet 1 tab PO Q4H PRN 01/08/16 03/01/18 10/325 MG] Mometasone Furoate [Nasonex] 2 spray IH DAILY 09/12/17 01/01/18 Albuterol Sulfate [Ventolin Hfa] 2 puff IH Q4H PRN 11/14/17 01/01/18 Insulin NPH Human Isophane 60 unit SQ BID 11/14/17 01/01/18 [Novolin N] Insulin Regular, Human [Novolin R] 40 units SQ TIDWM 11/14/17 01/01/18 Meclizine HCl [Verticalm] 25 mg PO DAILY PRN 12/21/17 01/01/18 Albuterol Neb [Proventil Neb] 2.5 mg IH Q4HR PRN 01/01/18 03/01/18 Aspirin 81 mg PO DAILY 01/01/18 01/01/18 Atorvastatin [Lipitor] 40 mg PO DAILY 01/01/18 03/01/18 Cialis 20 mg PO DAILY PRN 01/01/18 01/01/18 Desonide 0.05 applic TP BID 01/01/18 01/01/18 Ketoconazole 2% CRM 1 applic TP DAILY 01/01/18 01/01/18 NIFEdipine [Nifedipine ER] 90 mg PO DAILY 01/01/18 03/01/18 Tamsulosin HCl [Flomax] 0.4 mg PO DAILY 01/01/18 03/01/18 CloNIDine Patch [Catapres-Tts] 0.1 mg TP QWEEK 03/01/18 03/01/18 Metoprolol Tartrate [Metoprolol 100 mg PO BID 03/01/18 03/01/18 Tartrate] Previous Rx's Medication Instructions Recorded Nitroglycerin 0.4 mg SL Q5MIN PRN #25 tab.subl 05/28/16 Loratadine [Claritin] 10 mg PO DAILY #20 tablet 12/09/17 Allergies Allergy/AdvReac Type Severity Reaction Status Date / Time ciprofloxacin [From Cipro] Allergy Hives Verified 03/01/18 17:06 Sulfa (Sulfonamide Allergy Hives Verified 03/01/18 17:06 Antibiotics) celecoxib AdvReac Nausea Verified 03/01/18 17:06 Past Medical History - Past Medical History Medical history: Reports: CVA, dementia, diabetes, glaucoma, hyperlipidemia, hypertension, kidney stones, malignancy, renal disease, other Surgical history: Reports: cholecystectomy, orthopedic, other, other Psychiatric history: Reports: depression - Social History Smoking Status: Current every day smoker Smokeless Tobacco Status: No (former user of chew) Alcohol use: Reports: none Drug use: Reports: none Physical Exam - General Limitations: altered mental status General appearance: alert Course Vital Signs Temperature 103.1 F H 03/01/18 14:15 Pulse Rate 111 03/01/18 14:15 Respiratory Rate 20 03/01/18 14:15 Blood Pressure 165/115 03/01/18 14:15 O2 Sat by Pulse Oximetry 94 03/01/18 14:15 Temperature 98.6 F 03/02/18 11:24 Pulse Rate 90 03/02/18 11:24 Respiratory Rate 18 03/02/18 11:24 Blood Pressure 186/90 03/02/18 11:24 O2 Sat by Pulse Oximetry 96 03/02/18 11:24 Oxygen Delivery Oxygen Delivery Nasal Cannula Medical Decision Making - Lab Data Result diagrams: 03/02/18 07:20 03/01/18 14:55 Lab Results 03/01/18 03/01/18 03/01/18 Range/Units 14:40 14:42 14:55 WBC 13.8 H (4.3-11.1) K/mcL RBC 3.64 L (4.19-5.50) M/mcL Hgb 11.8 L (12.9-16.9) g/dL Hct 35.3 L (37.5-50.1) % MCV 97.0 (83.0-100.0) fL MCH 32.4 (28.0-33.3) pg MCHC 33.4 (31.6-35.5) g/dL RDW 13.5 (11.5-14.5) % Plt Count 240 (140-400) K/mcL MPV 9.9 (9.4-12.4) fL Immature Gran % 0.6 (0-4) % Seg Neutrophils % 79.9 % Lymphocytes % 10.1 % Monocytes % 8.6 % Eosinophils % 0.6 % Basophils % 0.2 % Neutrophils # 11.0 H (1.6-8.9) K/mcL Lymphocytes # 1.4 (0.6-4.6) K/mcL Monocytes # 1.2 (0.0-1.3) K/mcL Eosinophils # 0.1 (0.0-0.6) K/mcL Basophils # 0.0 (0.0-0.2) K/mcL PT (9.4-12.1) Seconds INR APTT (26.0-36.0) Seconds Sodium (136-145) mEq/L Potassium (3.5-5.1) mEq/L Chloride (98-107) mEq/L Carbon Dioxide (23-29) mEq/L BUN (8-23) mg/dL Creatinine (0.70-1.30) mg/dL Est GFR ( Amer) (> 60) Est GFR (Non-Af Amer) (> 60) BUN/Creatinine Ratio (6-26) Glucose (70-105) mg/dL POC Glucose (70-99) mg/dL Calculated Osmolality (280-300) Lactic Acid 1.5 (0.5-2.2) mmol/L Calcium (8.6-10.3) mg/dL Phosphorus (2.7-4.5) mg/dL Magnesium (1.6-2.6) mg/dL Total Bilirubin (0.3-1.0) mg/dL Direct Bilirubin (0.0-0.2) mg/dL Indirect Bilirubin (0.0-1.2) mg/dL AST (13-39) Units/L ALT (7-52) Units/L Alkaline Phosphatase (34-104) Units/L Troponin I (< 0.04) ng/mL Serum Total Protein (6.4-8.9) g/dL Albumin (3.5-5.7) g/dL Globulin (2.4-3.5) g/dL Albumin/Globulin Ratio (1.1-2.2) Urine Color Yellow (Yellow) Urine Clarity Clear (Clear) Urine pH 6.5 (5.0-8.0) pH Units Ur Specific Boyds 1.023 (1.010-1.025) Urine Protein >=1000 H (Neg-Trace) mg/dL Urine Glucose (UA) >=1000 H (Normal) mg/dL Urine Ketones Negative (Negative) mg/dL Urine Blood Negative (Negative) Urine Nitrite Negative (Negative) Urine Bilirubin Negative (Negative) Urine Urobilinogen Normal (Normal) mg/dL Ur Leukocyte Esterase Negative (Negative) Urine Microscopic RBC 5-15 H (0-3) per hpf Urine Microscopic WBC 0-3 (0-3) per hpf Ur Squamous Epith Cells Moderate H (None-Few) per lpf Urine Bacteria None Seen (None-Few) per hpf Hyaline Casts None Seen (None-Few) per lpf Ur Culture Indicated? NO (NO) Ethyl Alcohol (Less than 10) mg/dL 03/01/18 03/01/18 03/01/18 Range/Units 14:55 14:55 14:55 WBC (4.3-11.1) K/mcL RBC (4.19-5.50) M/mcL Hgb (12.9-16.9) g/dL Hct (37.5-50.1) % MCV (83.0-100.0) fL MCH (28.0-33.3) pg MCHC (31.6-35.5) g/dL RDW (11.5-14.5) % Plt Count (140-400) K/mcL MPV (9.4-12.4) fL Immature Gran % (0-4) % Seg Neutrophils % % Lymphocytes % % Monocytes % % Eosinophils % % Basophils % % Neutrophils # (1.6-8.9) K/mcL Lymphocytes # (0.6-4.6) K/mcL Monocytes # (0.0-1.3) K/mcL Eosinophils # (0.0-0.6) K/mcL Basophils # (0.0-0.2) K/mcL PT 10.9 (9.4-12.1) Seconds INR 1.0 APTT 34.7 (26.0-36.0) Seconds Sodium 133 L (136-145) mEq/L Potassium 4.3 (3.5-5.1) mEq/L Chloride 99 (98-107) mEq/L Carbon Dioxide 24 (23-29) mEq/L BUN 44 H (8-23) mg/dL Creatinine 3.74 H (0.70-1.30) mg/dL Est GFR ( Amer) 20 L (> 60) Est GFR (Non-Af Amer) 16 L (> 60) BUN/Creatinine Ratio 12 (6-26) Glucose 315 H (70-105) mg/dL POC Glucose (70-99) mg/dL Calculated Osmolality 299 (280-300) Lactic Acid (0.5-2.2) mmol/L Calcium 8.9 (8.6-10.3) mg/dL Phosphorus 2.9 (2.7-4.5) mg/dL Magnesium 1.6 (1.6-2.6) mg/dL Total Bilirubin 0.4 (0.3-1.0) mg/dL Direct Bilirubin 0.1 (0.0-0.2) mg/dL Indirect Bilirubin 0.3 (0.0-1.2) mg/dL AST 18 (13-39) Units/L ALT 13 (7-52) Units/L Alkaline Phosphatase 109 H (34-104) Units/L Troponin I 0.03 (< 0.04) ng/mL Serum Total Protein 6.6 (6.4-8.9) g/dL Albumin 3.5 (3.5-5.7) g/dL Globulin 3.1 (2.4-3.5) g/dL Albumin/Globulin Ratio 1.1 (1.1-2.2) Urine Color (Yellow) Urine Clarity (Clear) Urine pH (5.0-8.0) pH Units Ur Specific Boyds (1.010-1.025) Urine Protein (Neg-Trace) mg/dL Urine Glucose (UA) (Normal) mg/dL Urine Ketones (Negative) mg/dL Urine Blood (Negative) Urine Nitrite (Negative) Urine Bilirubin (Negative) Urine Urobilinogen (Normal) mg/dL Ur Leukocyte Esterase (Negative) Urine Microscopic RBC (0-3) per hpf Urine Microscopic WBC (0-3) per hpf Ur Squamous Epith Cells (None-Few) per lpf Urine Bacteria (None-Few) per hpf Hyaline Casts (None-Few) per lpf Ur Culture Indicated? (NO) Ethyl Alcohol < 10 (Less than 10) mg/dL 03/01/18 Range/Units 15:00 WBC (4.3-11.1) K/mcL RBC (4.19-5.50) M/mcL Hgb (12.9-16.9) g/dL Hct (37.5-50.1) % MCV (83.0-100.0) fL MCH (28.0-33.3) pg MCHC (31.6-35.5) g/dL RDW (11.5-14.5) % Plt Count (140-400) K/mcL MPV (9.4-12.4) fL Immature Gran % (0-4) % Seg Neutrophils % % Lymphocytes % % Monocytes % % Eosinophils % % Basophils % % Neutrophils # (1.6-8.9) K/mcL Lymphocytes # (0.6-4.6) K/mcL Monocytes # (0.0-1.3) K/mcL Eosinophils # (0.0-0.6) K/mcL Basophils # (0.0-0.2) K/mcL PT (9.4-12.1) Seconds INR APTT (26.0-36.0) Seconds Sodium (136-145) mEq/L Potassium (3.5-5.1) mEq/L Chloride (98-107) mEq/L Carbon Dioxide (23-29) mEq/L BUN (8-23) mg/dL Creatinine (0.70-1.30) mg/dL Est GFR ( Amer) (> 60) Est GFR (Non-Af Amer) (> 60) BUN/Creatinine Ratio (6-26) Glucose (70-105) mg/dL POC Glucose 317 H (70-99) mg/dL Calculated Osmolality (280-300) Lactic Acid (0.5-2.2) mmol/L Calcium (8.6-10.3) mg/dL Phosphorus (2.7-4.5) mg/dL Magnesium (1.6-2.6) mg/dL Total Bilirubin (0.3-1.0) mg/dL Direct Bilirubin (0.0-0.2) mg/dL Indirect Bilirubin (0.0-1.2) mg/dL AST (13-39) Units/L ALT (7-52) Units/L Alkaline Phosphatase (34-104) Units/L Troponin I (< 0.04) ng/mL Serum Total Protein (6.4-8.9) g/dL Albumin (3.5-5.7) g/dL Globulin (2.4-3.5) g/dL Albumin/Globulin Ratio (1.1-2.2) Urine Color (Yellow) Urine Clarity (Clear) Urine pH (5.0-8.0) pH Units Ur Specific Boyds (1.010-1.025) Urine Protein (Neg-Trace) mg/dL Urine Glucose (UA) (Normal) mg/dL Urine Ketones (Negative) mg/dL Urine Blood (Negative) Urine Nitrite (Negative) Urine Bilirubin (Negative) Urine Urobilinogen (Normal) mg/dL Ur Leukocyte Esterase (Negative) Urine Microscopic RBC (0-3) per hpf Urine Microscopic WBC (0-3) per hpf Ur Squamous Epith Cells (None-Few) per lpf Urine Bacteria (None-Few) per hpf Hyaline Casts (None-Few) per lpf Ur Culture Indicated? (NO) Ethyl Alcohol (Less than 10) mg/dL Attestation Statement - Attestation Attestation: I examined this patient and my medical decision-making was reviewed with the Resident Physician. I agree with the documented findings, disposition and treatment plan as described except to the extent set forth below. [id number] time provided Patient arrives by EMS from home. He is confused. He states he has a remote history of stroke. He is febrile and tachycardic and meets SIRS criteria. Sepsis workup initiated
--- NOTE | 2018-03-01 14:29 | Emergency Department Note ---
Disposition Clinical Impression: Confusion Pneumonia Qualifiers: Pneumonia type: due to unspecified organism Laterality: left Lung location: lower lobe of lung Qualified Code(s): J18.1 - Lobar pneumonia, unspecified organism Altered mental status Qualifiers: Altered mental status type: disorientation Qualified Code(s): R41.0 - Disorientation, unspecified Sepsis Qualifiers: Sepsis type: sepsis due to unspecified organism Qualified Code(s): A41.9 - Sepsis, unspecified organism Disposition: Admitted As Inpatient Condition: Fair Time of Disposition: 16:10 Altered Mental Status HPI - General Chief Complaint: ED Altered Mental Status Stated Complaint: AMS Time Seen by Provider: 03/01/18 14:10 Source: patient, EMS Mode of arrival: EMS Limitations: altered mental status Nursing Notes Reviewed: Yes Vital Signs Reviewed: Yes - History of Present Illness HPI Narrative: 67-year-old male history of CVA and cancer presents emergency department via EMS for altered mental status and fall. Patient is confused and majority of history was obtained through EMS. EMS found the patient laying on his side on the ground of his residence. Patient denies any pain or complaints at this time. He reportedly lives with his daughter who was present and may have called the squad. Her name is Teressa. Reportedly he also has a family member from [facility] who was present during the incident and should be coming here shortly. He is febrile of 103.1 and warm to the touch. A septic workup initiated including CT imaging of his head and cervical spine. He is also tachycardic. MD complaint: altered mental status, confusion - Related Data Home Medications Medication Instructions Recorded Confirmed Omeprazole [PriLOSEC] 40 mg PO DAILY 01/08/16 03/01/18 OxyCODONE/APAP 10/325 [Percocet 1 tab PO Q4H PRN 01/08/16 03/01/18 10/325 MG] Mometasone Furoate [Nasonex] 2 spray IH DAILY 09/12/17 01/01/18 Albuterol Sulfate [Ventolin Hfa] 2 puff IH Q4H PRN 11/14/17 01/01/18 Insulin NPH Human Isophane 60 unit SQ BID 11/14/17 01/01/18 [Novolin N] Insulin Regular, Human [Novolin R] 40 units SQ TIDWM 11/14/17 01/01/18 Meclizine HCl [Verticalm] 25 mg PO DAILY PRN 12/21/17 01/01/18 Albuterol Neb [Proventil Neb] 2.5 mg IH Q4HR PRN 01/01/18 03/01/18 Aspirin 81 mg PO DAILY 01/01/18 01/01/18 Atorvastatin [Lipitor] 40 mg PO DAILY 01/01/18 03/01/18 Cialis 20 mg PO DAILY PRN 01/01/18 01/01/18 Desonide 0.05 applic TP BID 01/01/18 01/01/18 Ketoconazole 2% CRM 1 applic TP DAILY 01/01/18 01/01/18 NIFEdipine [Nifedipine ER] 90 mg PO DAILY 01/01/18 03/01/18 Tamsulosin HCl [Flomax] 0.4 mg PO DAILY 01/01/18 03/01/18 CloNIDine Patch [Catapres-Tts] 0.1 mg TP QWEEK 03/01/18 03/01/18 Metoprolol Tartrate [Metoprolol 100 mg PO BID 03/01/18 03/01/18 Tartrate] Previous Rx's Medication Instructions Recorded Nitroglycerin 0.4 mg SL Q5MIN PRN #25 tab.subl 05/28/16 Loratadine [Claritin] 10 mg PO DAILY #20 tablet 12/09/17 Allergies Allergy/AdvReac Type Severity Reaction Status Date / Time ciprofloxacin [From Cipro] Allergy Hives Verified 03/01/18 17:06 Sulfa (Sulfonamide Allergy Hives Verified 03/01/18 17:06 Antibiotics) celecoxib AdvReac Nausea Verified 03/01/18 17:06 Limitations: ROS unobtainable due to patients medical condition Past Medical History - Past Medical History Source: old records reviewed Medical history: Reports: CVA, dementia, diabetes, glaucoma, hyperlipidemia, hypertension, kidney stones, malignancy, renal disease, other Surgical history: Reports: cholecystectomy, orthopedic, other, other Psychiatric history: Reports: depression - Social History Smoking Status: Current every day smoker Smokeless Tobacco Status: No (former user of chew) Alcohol use: Reports: none Drug use: Reports: none Physical Exam - General Limitations: altered mental status General appearance: alert, in no apparent distress, other (Pleasantly confused and requesting to go home) - Head Head exam: atraumatic, normocephalic, normal inspection - Eye Eye exam: Present: normal appearance, PERRL, EOMI. Absent: nystagmus - ENT ENT exam: normal exam, normal oropharynx, mucous membranes moist, TM's normal bilaterally - Neck Neck exam: Present: normal inspection, full ROM, trachea midline. Absent: tenderness - Chest Chest inspection: Present: normal inspection, symmetric chest wall rise - Respiratory Respiratory exam: Present: normal lung sounds bilaterally. Absent: respiratory distress, wheezes - Cardiovascular Cardiovascular exam: Present: regular rate, normal rhythm, normal heart sounds - Abdominal Exam Abdominal exam: Present: soft, Non-Tender, normal bowel sounds. Absent: tenderness, distention, guarding, rebound, rigidity - Extremities Exam Extremities exam: Present: normal inspection, full ROM. Absent: tenderness, pedal edema - Expanded Lower Extremity Exam Hip/Pelvis exam: Present: normal inspection, full ROM, pelvis stable. Absent: tenderness, external rotation, internal rotation, shortening Upper leg exam: Present: normal inspection, full ROM Knee exam: Present: normal inspection, full ROM Lower leg exam: Present: normal inspection, full ROM Ankle exam: Present: normal inspection, full ROM Foot/toe exam: Present: normal inspection, full ROM Neurovascular/Tendon exam: Absent: motor deficit, sensory deficit, tendon deficit - Neurological Exam Neurological exam: Present: alert - Expanded Neurological Exam Patient oriented to: Present: person. Absent: place, time (Asked multiple times what year it is a he keeps answering "this year") Cranial nerves: EOM function (II, III, IV, ): Normal, facial sensation (V): Normal, facial palsy (VII): Normal, tongue deviation (XII): Normal Motor strength - LUE: 5/5 Motor strength - RUE: 5/5 Motor strength - LLE: 5/5 Motor strength - RLE: 5/5 Coma Scale Eye Opening: Spontaneous Coma Scale Motor Response: Obeys Commands Coma Scale Verbal Response: Confused Coma Scale Total: 14 - Psychiatric Psychiatric exam: Present: flat affect - Skin Skin exam: Present: warm, dry, intact, normal color Course Course Narrative: Septic workup initiated. Will give fluid for tachycardia. Tylenol for fever. CT imaging given the history of fall. Will await family members for further information. - Reevaluation(s) Reevaluation #1: Patients cousin is present in the room. His name is Mushtaq not 10. He states he is been with the patient since from out of town. States he has been acting his normal self including at this moment. She was with him when the incident occurred. The patient was attempting to stand up and believes that he fell. It was not witnessed but he did hear a thump. Patient was on the ground. Earlier today around 10 AM the patient was complaining of some left shoulder pain and was evaluated by EMS but did not come to emergency department for further evaluation. Patient is adamant that he is fine and requests to go home. Awaiting daughter to arrive. Time: 15:05 Reevaluation #2: Spoke to the patient's son Varun who is the power of ditcher. Agreement with admission. Also reports patient has history of lung cancer diagnosed earlier this year receiving chemotherapy follows with Dr. Sarabia. He is currently not undergoing any treatment. Patient will be admitted for pneumonia. - Consultations Consultation #1: Spoke with on-call hospitalist larua Gomez to admit for sepsis, pneumonia. No further orders at this time Time: 16:19 Vital Signs Temperature 103.1 F H 03/01/18 14:15 Pulse Rate 111 03/01/18 14:15 Respiratory Rate 20 03/01/18 14:15 Blood Pressure 165/115 03/01/18 14:15 O2 Sat by Pulse Oximetry 94 03/01/18 14:15 Temperature 100.1 F H 03/01/18 16:34 Pulse Rate 93 03/01/18 16:34 Respiratory Rate 18 03/01/18 16:34 Blood Pressure 136/78 03/01/18 16:34 O2 Sat by Pulse Oximetry 97 03/01/18 18:08 Oxygen Delivery Oxygen Delivery Nasal Cannula Altered Mental Status - MDM Narrative Medical decision making narrative: Patient was discussed with my attending physician who agrees with ED management and final disposition. They independently evaluated the patient. Please refer to their attestation to this encounter for additional information. This note was generated by [email or web address] voice recognition software and as a result grammatical or spelling errors may occur using this program. - Medical Records Medical records reviewed: Yes I reviewed the patient's medical records. - Lab Data Lab results reviewed: Yes I reviewed the patient's lab results. Result diagrams: 03/01/18 14:55 03/01/18 14:55 Lab Results 03/01/18 03/01/18 03/01/18 Range/Units 14:40 14:42 14:55 WBC 13.8 H (4.3-11.1) K/mcL RBC 3.64 L (4.19-5.50) M/mcL Hgb 11.8 L (12.9-16.9) g/dL Hct 35.3 L (37.5-50.1) % MCV 97.0 (83.0-100.0) fL MCH 32.4 (28.0-33.3) pg MCHC 33.4 (31.6-35.5) g/dL RDW 13.5 (11.5-14.5) % Plt Count 240 (140-400) K/mcL MPV 9.9 (9.4-12.4) fL Immature Gran % 0.6 (0-4) % Seg Neutrophils % 79.9 % Lymphocytes % 10.1 % Monocytes % 8.6 % Eosinophils % 0.6 % Basophils % 0.2 % Neutrophils # 11.0 H (1.6-8.9) K/mcL Lymphocytes # 1.4 (0.6-4.6) K/mcL Monocytes # 1.2 (0.0-1.3) K/mcL Eosinophils # 0.1 (0.0-0.6) K/mcL Basophils # 0.0 (0.0-0.2) K/mcL PT (9.4-12.1) Seconds INR APTT (26.0-36.0) Seconds Sodium (136-145) mEq/L Potassium (3.5-5.1) mEq/L Chloride (98-107) mEq/L Carbon Dioxide (23-29) mEq/L BUN (8-23) mg/dL Creatinine (0.70-1.30) mg/dL Est GFR ( Amer) (> 60) Est GFR (Non-Af Amer) (> 60) BUN/Creatinine Ratio (6-26) Glucose (70-105) mg/dL POC Glucose (70-99) mg/dL Calculated Osmolality (280-300) Lactic Acid 1.5 (0.5-2.2) mmol/L Calcium (8.6-10.3) mg/dL Phosphorus (2.7-4.5) mg/dL Magnesium (1.6-2.6) mg/dL Total Bilirubin (0.3-1.0) mg/dL Direct Bilirubin (0.0-0.2) mg/dL Indirect Bilirubin (0.0-1.2) mg/dL AST (13-39) Units/L ALT (7-52) Units/L Alkaline Phosphatase (34-104) Units/L Troponin I (< 0.04) ng/mL Serum Total Protein (6.4-8.9) g/dL Albumin (3.5-5.7) g/dL Globulin (2.4-3.5) g/dL Albumin/Globulin Ratio (1.1-2.2) Urine Color Yellow (Yellow) Urine Clarity Clear (Clear) Urine pH 6.5 (5.0-8.0) pH Units Ur Specific [place] 1.023 (1.010-1.025) Urine Protein >=1000 H (Neg-Trace) mg/dL Urine Glucose (UA) >=1000 H (Normal) mg/dL Urine Ketones Negative (Negative) mg/dL Urine Blood Negative (Negative) Urine Nitrite Negative (Negative) Urine Bilirubin Negative (Negative) Urine Urobilinogen Normal (Normal) mg/dL Ur Leukocyte Esterase Negative (Negative) Urine Microscopic RBC 5-15 H (0-3) per hpf Urine Microscopic WBC 0-3 (0-3) per hpf Ur Squamous Epith Cells Moderate H (None-Few) per lpf Urine Bacteria None Seen (None-Few) per hpf Hyaline Casts None Seen (None-Few) per lpf Ur Culture Indicated? NO (NO) Ethyl Alcohol (Less than 10) mg/dL 03/01/18 03/01/18 03/01/18 Range/Units 14:55 14:55 14:55 WBC (4.3-11.1) K/mcL RBC (4.19-5.50) M/mcL Hgb (12.9-16.9) g/dL Hct (37.5-50.1) % MCV (83.0-100.0) fL MCH (28.0-33.3) pg MCHC (31.6-35.5) g/dL RDW (11.5-14.5) % Plt Count (140-400) K/mcL MPV (9.4-12.4) fL Immature Gran % (0-4) % Seg Neutrophils % % Lymphocytes % % Monocytes % % Eosinophils % % Basophils % % Neutrophils # (1.6-8.9) K/mcL Lymphocytes # (0.6-4.6) K/mcL Monocytes # (0.0-1.3) K/mcL Eosinophils # (0.0-0.6) K/mcL Basophils # (0.0-0.2) K/mcL PT 10.9 (9.4-12.1) Seconds INR 1.0 APTT 34.7 (26.0-36.0) Seconds Sodium 133 L (136-145) mEq/L Potassium 4.3 (3.5-5.1) mEq/L Chloride 99 (98-107) mEq/L Carbon Dioxide 24 (23-29) mEq/L BUN 44 H (8-23) mg/dL Creatinine 3.74 H (0.70-1.30) mg/dL Est GFR ( Amer) 20 L (> 60) Est GFR (Non-Af Amer) 16 L (> 60) BUN/Creatinine Ratio 12 (6-26) Glucose 315 H (70-105) mg/dL POC Glucose (70-99) mg/dL Calculated Osmolality 299 (280-300) Lactic Acid (0.5-2.2) mmol/L Calcium 8.9 (8.6-10.3) mg/dL Phosphorus 2.9 (2.7-4.5) mg/dL Magnesium 1.6 (1.6-2.6) mg/dL Total Bilirubin 0.4 (0.3-1.0) mg/dL Direct Bilirubin 0.1 (0.0-0.2) mg/dL Indirect Bilirubin 0.3 (0.0-1.2) mg/dL AST 18 (13-39) Units/L ALT 13 (7-52) Units/L Alkaline Phosphatase 109 H (34-104) Units/L Troponin I 0.03 (< 0.04) ng/mL Serum Total Protein 6.6 (6.4-8.9) g/dL Albumin 3.5 (3.5-5.7) g/dL Globulin 3.1 (2.4-3.5) g/dL Albumin/Globulin Ratio 1.1 (1.1-2.2) Urine Color (Yellow) Urine Clarity (Clear) Urine pH (5.0-8.0) pH Units Ur Specific [place] (1.010-1.025) Urine Protein (Neg-Trace) mg/dL Urine Glucose (UA) (Normal) mg/dL Urine Ketones (Negative) mg/dL Urine Blood (Negative) Urine Nitrite (Negative) Urine Bilirubin (Negative) Urine Urobilinogen (Normal) mg/dL Ur Leukocyte Esterase (Negative) Urine Microscopic RBC (0-3) per hpf Urine Microscopic WBC (0-3) per hpf Ur Squamous Epith Cells (None-Few) per lpf Urine Bacteria (None-Few) per hpf Hyaline Casts (None-Few) per lpf Ur Culture Indicated? (NO) Ethyl Alcohol < 10 (Less than 10) mg/dL 03/01/18 Range/Units 15:00 WBC (4.3-11.1) K/mcL RBC (4.19-5.50) M/mcL Hgb (12.9-16.9) g/dL Hct (37.5-50.1) % MCV (83.0-100.0) fL MCH (28.0-33.3) pg MCHC (31.6-35.5) g/dL RDW (11.5-14.5) % Plt Count (140-400) K/mcL MPV (9.4-12.4) fL Immature Gran % (0-4) % Seg Neutrophils % % Lymphocytes % % Monocytes % % Eosinophils % % Basophils % % Neutrophils # (1.6-8.9) K/mcL Lymphocytes # (0.6-4.6) K/mcL Monocytes # (0.0-1.3) K/mcL Eosinophils # (0.0-0.6) K/mcL Basophils # (0.0-0.2) K/mcL PT (9.4-12.1) Seconds INR APTT (26.0-36.0) Seconds Sodium (136-145) mEq/L Potassium (3.5-5.1) mEq/L Chloride (98-107) mEq/L Carbon Dioxide (23-29) mEq/L BUN (8-23) mg/dL Creatinine (0.70-1.30) mg/dL Est GFR ( Amer) (> 60) Est GFR (Non-Af Amer) (> 60) BUN/Creatinine Ratio (6-26) Glucose (70-105) mg/dL POC Glucose 317 H (70-99) mg/dL Calculated Osmolality (280-300) Lactic Acid (0.5-2.2) mmol/L Calcium (8.6-10.3) mg/dL Phosphorus (2.7-4.5) mg/dL Magnesium (1.6-2.6) mg/dL Total Bilirubin (0.3-1.0) mg/dL Direct Bilirubin (0.0-0.2) mg/dL Indirect Bilirubin (0.0-1.2) mg/dL AST (13-39) Units/L ALT (7-52) Units/L Alkaline Phosphatase (34-104) Units/L Troponin I (< 0.04) ng/mL Serum Total Protein (6.4-8.9) g/dL Albumin (3.5-5.7) g/dL Globulin (2.4-3.5) g/dL Albumin/Globulin Ratio (1.1-2.2) Urine Color (Yellow) Urine Clarity (Clear) Urine pH (5.0-8.0) pH Units Ur Specific [place] (1.010-1.025) Urine Protein (Neg-Trace) mg/dL Urine Glucose (UA) (Normal) mg/dL Urine Ketones (Negative) mg/dL Urine Blood (Negative) Urine Nitrite (Negative) Urine Bilirubin (Negative) Urine Urobilinogen (Normal) mg/dL Ur Leukocyte Esterase (Negative) Urine Microscopic RBC (0-3) per hpf Urine Microscopic WBC (0-3) per hpf Ur Squamous Epith Cells (None-Few) per lpf Urine Bacteria (None-Few) per hpf Hyaline Casts (None-Few) per lpf Ur Culture Indicated? (NO) Ethyl Alcohol (Less than 10) mg/dL - Radiology Data Radiology results reviewed: Yes I reviewed the patient's radiology results. Cervical Spine CT 03/01/18 14:21 IMPRESSION: Brain: No acute intracranial hemorrhage or mass effect. Nonacute bilateral cerebral infarcts. Cervical spine: No evidence of acute fracture or subluxation. D/ / Mehul Lobo MD / Mehul Lobo MD Interpreting Provider: Mehul Lobo MD Chest X-Ray 03/01/18 14:21 IMPRESSION: Left basilar opacity increased, may reflect atelectasis or pneumonia. D/ / Mehul Lobo MD / Mehul Lobo MD Interpreting Provider: Mheul Lobo MD Head CT 03/01/18 14:21 IMPRESSION: Brain: No acute intracranial hemorrhage or mass effect. Nonacute bilateral cerebral infarcts. Cervical spine: No evidence of acute fracture or subluxation. D/ / Mehul Lobo MD / Mehul Lobo MD Interpreting Provider: Mehul Lobo MD - EKG Data EKG attestation: Yes I reviewed and interpreted this EKG. EKG results narrative: EKG performed 1423 sinus tachycardia 111 beats per minute, no ST elevation or depression, incomplete right bundle branch block. No old EKG available for comparison at this time. No STEMI TPA Checklist - LKW: 3-4.5 hrs Add. Warnings/Precautions Patient/family understanding: The patient/family members have been counseled and understood the risk, benefit , and alternatives of treatment.
[2018-03-01 14:50] LABS: Bilirubin,Urine Negative (Negative); Blood,Urine Negative (Negative); Clarity,Urine Clear (Clear); Color,Urine Yellow (Yellow); Glucose,Urine (UA) >=1000 mg/dL (Normal); Ketones,Urine Negative (Negative); Leukocyte Esterase,Urine Negative (Negative); Nitrite,Urine Negative (Negative); PH,Urine 6.5 pH Units (5.0-8.0); Protein,Urine >=1000 mg/dL (Neg-Trace); Specific Gravity,Urine 1.023 (1.010-1.025); Urobilinogen,Urine Normal (Normal)
[2018-03-01 14:52] LABS: Bacteria,Urine None Seen per hpf (None-Few); Hyaline Casts,Urine None Seen per lpf (None-Few); Squamous Epithelial Cell,Urine Moderate per lpf (None-Few); WBC,Urine 0-3 per hpf (0-3)
[2018-03-01 15:11] LABS: Basophils % 0.2 %; Eosinophils # 0.1 K/mcL (0.0-0.6); Eosinophils % 0.6 %; Hematocrit 35.3 % (37.5-50.1); Hemoglobin 11.8 g/dL (12.9-16.9); Immature Granulocytes % 0.6 % (0-4); Lymphocytes # 1.4 K/mcL (0.6-4.6); Lymphocytes % 10.1 %; Mean Corpuscular HGB Conc 33.4 g/dL (31.6-35.5); Mean Corpuscular Hemoglobin 32.4 pg (28.0-33.3); Mean Platelet Volume 9.9 fL (9.4-12.4); Monocytes # 1.2 K/mcL (0.0-1.3); Monocytes % 8.6 %; Platelet Count 240 K/mcL (140-400); Red Blood Count 3.64 M/mcL (4.19-5.50); Red Cell Distribution Width 13.5 % (11.5-14.5); Segmented Neutrophils % 79.9 %
[2018-03-01 15:17] LABS: Prothrombin Time 10.9 Seconds (9.4-12.1)
[2018-03-01 15:20] LABS: Activated Partial Thrombo Time 34.7 Seconds (26.0-36.0)
[2018-03-01 15:29] LABS: Magnesium 1.6 mg/dL (1.6-2.6); Phosphorous 2.9 mg/dL (2.7-4.5)
[2018-03-01 15:32] LABS: Alanine Aminotransferase 13 Units/L (7-52); Albumin 3.5 g/dL (3.5-5.7); Albumin/Globulin Ratio 1.1 (1.1-2.2); Alkaline Phosphatase 109 Units/L (34-104); Aspartate Amino Transferase 18 Units/L (13-39); BUN/Creatinine Ratio 12 (6-26); Bilirubin,Direct 0.1 mg/dL (0.0-0.2); Bilirubin,Indirect 0.3 mg/dL (0.0-1.2); Bilirubin,Total 0.4 mg/dL (0.3-1.0); Blood Urea Nitrogen 44 mg/dL (8-23); Calcium 8.9 mg/dL (8.6-10.3); Carbon Dioxide 24 mEq/L (23-29); Chloride 99 mEq/L (98-107); Ethanol < 10 mg/dL (Less than 10); Globulin 3.1 g/dL (2.4-3.5); Glucose 315 mg/dL (70-105); Osmolality,Calculated 299 (280-300); Potassium 4.3 mEq/L (3.5-5.1); Sodium 133 mEq/L (136-145); Total Protein 6.6 g/dL (6.4-8.9); eGFR For Non-African Americans 16 (> 60)
[2018-03-01 15:33] LABS: Troponin I 0.03 ng/mL (< 0.04)
[2018-03-01] MEDS ORDERED: Azithromycin 500 MG in D5% in Water 250 ML IVPB ONE (15:37)
[2018-03-01] MEDS ORDERED: cefTRIAXone 2,000 MG in Water for inj. (sterile) 20 ML 20 ML IVP ONE (15:37)
--- NOTE | 2018-03-01 16:40 | Internal Med History&Physical ---
<Musa Rivera - Last Filed: 03/01/18 18:32> Date of Encounter: 03/01/18 Time of Encounter: 16:40 Internal Medicine - H&P: HPI Chief complaint: fall Admitted From: Emergency Dept Plans for Post Hospital Care: Transfer Residential Facility History of present illness: Mr. Xavier is a 67 year old male with past medical history of CVA in October 2017, diabetes, hypertension, CKD IV, CAD with defibrillator, small cell lung cancer diagnosed in October of 2017. He presented to the emergency department via EMS after alling out of his chair at home. Of note, patient does have a history of dementia and at time of interview he is not a reliable historian. He answers questions appropriately however chooses not answer some questions and states repeatedly that he does not want to come to the hospital and he wants to go home to see his grandkids. There is family present at bedside including one of his daughters and significant other. They did not witness the event however they are able to provide some history. Patient reportedly has been in and out of hospitals and nursing facility since October 2017 after suffering ischemic stroke to the left occipital lobe. He is not complaining of any residual weakness today. He states that he is experiencing no fevers, chills, chest pain, shortness of breath, nausea, vomiting, dysuria, increased frequency of urination. Family does state that he had chest pain approximately 2 days ago but now has just been weak ever since his hospitalizations. They also noticed a fever and he has appeared warm and clammy over the last couple days. They state he is supposed to be on oxygen at home but is noncompliant. He does wear CPAP at night. From what I could gather from the family, it does not appear that he lost consciousness or had a presyncopal event. They have said that he has been increasingly weak since this summer. On presentation to the emergency room, his vital signs are significant for temperature of 103.1, heart rate 111, respiratory rate 20, he is saturating 94% on 2 L of nasal cannula. Laboratory results were significant for WBC of 13.8, glucose of 315, BUNs/creatinine of 44/3.7 for which appears to be near his baseline. Urinalysis was obtained and showed large amount of protein and glucose but negative for leukocyte esterase or white blood cells. Notably lactic acid was within normal limits at 1.5. Troponin was negative at 0.03 and EKG performed in emergency department showed sinus tachycardia. Blood cultures were obtained and he was given a dose of ceftriaxone and azithromycin for possible pneumonia as demonstrated by left lower lobe consolidation on chest x- ray. CT head and cervical spine were also obtained due to the fall showed no acute intracranial process and no cervical spine fractures. I did discuss CODE STATUS with patient and family and they agreed that patient was to be a DO NOT RESUSCITATE and states that he has filled out paperwork in the past. They are unsure whether not he would desire intubation but they are okay with DNR CCA status until this is confirmed. Past medical history includes CVA, diabetes, hypertension, CK D stage IV, CAD, small cell lung carcinoma, dementia Past surgical history significant for orthopedic, brain aneurysm (coiling vs clipping?) Social Hx: Smokes 1/2 PPD, denies alcohol or drug use. Lives with daughter Past Med Surg Social Fam HX - Past Medical History Medical history: CVA, dementia, diabetes, glaucoma, hyperlipidemia, hypertension , kidney stones, malignancy, renal disease, other Additional medical history: sleep apnea, erectile dysfunction, psoriasis Psychiatric history: depression - Past Surgical History Surgical History: cholecystectomy, orthopedic, other, other Additional surgical history: Aneurysm (clip), loop recorder implantation, spinal sx, knee sx - Social History Smoking Status: Current every day smoker Smokeless Tobacco Status: No (former user of chew) Alcohol use: none Drug use: none - Family History Father Hx Family Cardiac Disorders: Yes Mother Living Status: Hx Family Cancer: Yes Brother Hx Family Cardiac Disorders: Yes Hx Family Cancer: Yes Internal Medicine - H&P: Meds Omeprazole [PriLOSEC] 40 mg PO DAILY 01/08/16 [History] OxyCODONE/APAP 10/325 [Percocet 10/325 MG] 1 tab PO Q4H PRN 01/08/16 [History] Nitroglycerin 0.4 mg SL Q5MIN PRN #25 tab.subl 05/28/16 [Rx] Mometasone Furoate [Nasonex] 2 spray IH DAILY 09/12/17 [History] Albuterol Sulfate [Ventolin Hfa] 2 puff IH Q4H PRN 11/14/17 [History] Insulin NPH Human Isophane [Novolin N] 60 unit SQ BID 11/14/17 [History] Insulin Regular, Human [Novolin R] 40 units SQ TIDWM 11/14/17 [History] Loratadine [Claritin] 10 mg PO DAILY #20 tablet 12/09/17 [Rx] Meclizine HCl [Verticalm] 25 mg PO DAILY PRN 12/21/17 [History] Albuterol Neb [Proventil Neb] 2.5 mg IH Q4HR PRN 01/01/18 [History] Aspirin 81 mg PO DAILY 01/01/18 [History] Atorvastatin [Lipitor] 40 mg PO DAILY 01/01/18 [History] Cialis 20 mg PO DAILY PRN 01/01/18 [History] Desonide 0.05 applic TP BID 01/01/18 [History] Ketoconazole 2% CRM 1 applic TP DAILY 01/01/18 [History] NIFEdipine [Nifedipine ER] 90 mg PO DAILY 01/01/18 [History] Tamsulosin HCl [Flomax] 0.4 mg PO DAILY 01/01/18 [History] CloNIDine Patch [Catapres-Tts] 0.1 mg TP QWEEK 03/01/18 [History] Metoprolol Tartrate [Metoprolol Tartrate] 100 mg PO BID 03/01/18 [History] 3 Allergy/AdvReac Type Severity Reaction Status Date / Time ciprofloxacin [From Cipro] Allergy Hives Verified 03/01/18 17:06 Sulfa (Sulfonamide Allergy Hives Verified 03/01/18 17:06 Antibiotics) celecoxib AdvReac Nausea Verified 03/01/18 17:06 ROS unobtainable: due to mental status All Systems PM: A 10-system review of systems was performed and is negative for pertinent findings except as documented above in the HPI. - Constitutional Constitutional: weakness, no chills, no excessive sweating, no fatigue, no fever (s) - EENT Eyes: no blurry vision - Cardiovascular Cardiovascular ROS IM: no chest pain, no diaphoresis, no dyspnea, no dyspnea on exertion, no edema, no lightheadedness, no syncope - Respiratory Respiratory: no cough, no dyspnea, no hemoptysis, no dyspnea on exertion, no wheezing, no chest congestion, no excessive phlegm production, no change in phlegm color, no pain with cough - Gastrointestinal Gastrointestinal: no abdominal pain, no constipation, no diarrhea, no nausea, no vomiting - Genitourinary Genitourinary ROS male: no dysuria, no urinary frequency, no urinary incontinence, no urinary urgency - Musculoskeletal Musculoskeletal ROS IM: muscle weakness, no muscle cramps, no numbness, no tingling - Neurological Neurological ROS: abnormal speech (at baseline), weakness, no dizziness, no numbness, no tingling - Constitutional Vitals: Temp Pulse Resp BP Pulse Ox 100.1 F H 93 18 136/78 97 03/01/18 16:34 03/01/18 16:34 03/01/18 16:34 03/01/18 16:34 03/01/18 16:34 Exam: Gen.: Vitals noted. No acute distress. AAOx1.5, resting comfortably in bed. HEENT: PERRL/EOMI, oropharynx clear, Normocephalic, atraumatic, mildly dry mucous membranes Cardiac: RRR, no murmur, +S1/S2, No BLE edema Pulmonary: Perhaps mildly diminished in left lower lobe otherwise CTA bilaterally, no wheezes, rales or rhonchi, equal chest expansion, unlabored breathing. Nasal cannula in place with one prong in nostril. Abdomen: soft, nontender, BS noted, no guarding, no palpable HSM Skin: warm and dry, no visible lesions. MSK: ROM intact, no joint swelling noted, gait no assessed while in bed. Non tender calf or clubbing Neuro: A&Ox1.5, moves all extremities, no focal deficits, sensation intact, muscle strength 5/5 in all extremities Psych: Appropriate mood and behavior, agitated at times Internal Med - H&P Results - Labs CBC & Chem 7: 03/01/18 14:55 03/01/18 14:55 - Assessment and plan (1) Altered mental status Current Visit: Yes Status: Acute Assessment and plan: - Patient and family report altered mental status of disorientation as well as generalized weakness - Patient is alert and oriented able to tell me his name and that is in the hospital. When asked the year he responds "I don't know, they don't tell me anything" - Family who is present at bedside do believe him to be altered and uncooperative with accurate history - Possible etiologies include pneumonia as above versus dehydration versus neurologic event - Further management of underlying conditions as elsewhere note Qualifiers: Altered mental status type: disorientation Qualified Code(s): R41.0 - Disorientation, unspecified (2) Pneumonia Current Visit: Yes Status: Acute Assessment and plan: - Chest x-ray in emergency primary showed left basilar opacity increase which may reflect atelectasis versus pneumonia. Further treatment as above Qualifiers: Pneumonia type: due to unspecified organism Laterality: left Lung location: lower lobe of lung Qualified Code(s): J18.1 - Lobar pneumonia, unspecified organism (3) CVA (cerebral vascular accident) Current Visit: Yes Status: Chronic Assessment and plan: - History of CVA to the right occipital lobe from the posterior cerebral artery in October 2017. Etiology per most recent neurology note of embolic versus atherosclerotic events. - Patient denies residual deficits - Home medications of aspirin and Plavix per most recent neurology note - CT of head and obtained emergency department negative for acute process Plan - Continue aspirin, Plavix, statin once medicines are confirmed Qualifiers: CVA mechanism: unspecified Qualified Code(s): I63.9 - Cerebral infarction, unspecified (4) Chronic kidney disease, stage IV (severe) Current Visit: Yes Status: Chronic Assessment and plan: - Known history of chronic kidney disease with BUNs/creatinine of 44/3.74 - Estimated GFR of 16 which appears to be near his baseline - We will give fluids per sepsis protocol as above - Avoid nephrotoxic agents, renally dose medications - Continue monitor with daily labs (5) Small cell lung cancer Current Visit: Yes Status: Chronic Assessment and plan: - Per patient's history and family at bedside, patient does have a history of small cell lung cancer - Outpatients record reviewed and there is no evidence of oncology progress note - Per primary care physician's most recent documentation on 12/02/17, patient was to receive chemotherapy the following week, however there is no documentation of this - I do not believe him to be immunocompromised at this time - Continue antibiotics as above - Further management as an outpatient I did attempt to contact his son Varun Welch at [phone] for further information, however the call could not be completed. (6) MAHAMED (obstructive sleep apnea) Current Visit: Yes Status: Chronic Assessment and plan: Continue CPAP at night (7) DM (diabetes mellitus), type 2, uncontrolled, with renal complications Current Visit: Yes Status: Chronic Assessment and plan: - Uncontrolled diabetes with complications of chronic kidney disease - Patient admits to poor glycemic control and does not test his blood sugars at home - Most recent hemoglobin A1c of 10.4% on 05/24/17 - Repeat A1c with morning labs - We will start moderate sliding scale insulin -Consider restarting basal insulin once medications are confirmed by pharmacy - Blood sugar and 300s on admission, continue to monitor - Before meals at bedtime glucose checks, diabetic diet (8) HTN (hypertension) Current Visit: Yes Status: Chronic Assessment and plan: - Most recent pressure most recently 136/78 - Continue home medicines once they are confirmed by pharmacy Qualifiers: Hypertension type: unspecified Qualified Code(s): I10 - Essential (primary ) hypertension (9) Hyperlipidemia Current Visit: Yes Status: Chronic Assessment and plan: Continue home statin once meds are confirmed Qualifiers: Hyperlipidemia type: mixed hyperlipidemia Qualified Code(s): E78.2 - Mixed hyperlipidemia (10) Tobacco use disorder Current Visit: Yes Status: Chronic Assessment and plan: - Patient does admit to smoking 1/4-1/2 half pack per day - Unwilling to quit at this time - Encouraged cessation as outpatient (11) DVT prophylaxis Current Visit: Yes Status: Acute Assessment and plan: Heparin 5000 units every 12 hours (12) Sepsis Current Visit: Yes Status: Acute Assessment and plan: - Patient meets 4/4 sirs criteria with temperature of 103.1, heart rate 111, respiratory rate 20 and WBC elevation of 13.8 - Possible source at this time is most likely pneumonia as demonstrated on chest x-ray and left lower lobe on admission - Urinalysis was obtained and did not show evidence of leukocyte esterase or nitrites - Blood cultures were obtained in the emergency department. Lactic acid of 1.5 - He did receive a 1 L normal saline bolus in the emergency department, we will order an additional 2 L per sepsis protocol - Was started on azithromycin and ceftriaxone in the emergency department. - Patient has been admitted to hospitals in the previous 3 months, however at this time we will continue community-acquired pneumonia treatment as he does not appear clinically ill. Plan - Continue fluids as above - Supplemental oxygen as necessary - Continue ceftriaxone and azithromycin, day 1 - Continue monitor with daily labs - Sepsis reassessment within 6 hours Qualifiers: Sepsis type: sepsis due to unspecified organism Qualified Code(s): A41.9 - Sepsis, unspecified organism - Time Spent With Patient Total time spent is greater than 50% in coordination of care (as documented) at patient's floor/unit and/or counseling patient: <Christa Quinteros - Last Filed: 03/01/18 18:59> Date of Encounter: 03/01/18 Internal Medicine - H&P: HPI History of present illness: Mr. Xavier is a 67 year old male All Systems PM: A 10-system review of systems was performed and is negative for pertinent findings except as documented above in the HPI. - Constitutional Vitals: Temp Pulse Resp BP Pulse Ox 99 F 82 20 188/90 97 03/01/18 18:48 03/01/18 18:48 03/01/18 18:48 03/01/18 18:48 03/01/18 18:48 Internal Med - H&P Results - Labs CBC & Chem 7: 03/01/18 14:55 03/01/18 14:55 - Assessment and plan (1) Altered mental status Current Visit: Yes Status: Acute Qualifiers: Altered mental status type: disorientation Qualified Code(s): R41.0 - Disorientation, unspecified (2) CVA (cerebral vascular accident) Current Visit: Yes Status: Chronic Qualifiers: CVA mechanism: unspecified Qualified Code(s): I63.9 - Cerebral infarction, unspecified (3) HTN (hypertension) Current Visit: Yes Status: Chronic Qualifiers: Hypertension type: unspecified Qualified Code(s): I10 - Essential (primary ) hypertension (4) Hyperlipidemia Current Visit: Yes Status: Chronic Qualifiers: Hyperlipidemia type: mixed hyperlipidemia Qualified Code(s): E78.2 - Mixed hyperlipidemia (5) DM (diabetes mellitus), type 2, uncontrolled, with renal complications Current Visit: Yes Status: Chronic (6) Tobacco use disorder Current Visit: Yes Status: Chronic (7) MAHAMED (obstructive sleep apnea) Current Visit: Yes Status: Chronic (8) DVT prophylaxis Current Visit: Yes Status: Acute (9) Chronic kidney disease, stage IV (severe) Current Visit: Yes Status: Chronic (10) Small cell lung cancer Current Visit: Yes Status: Chronic (11) Pneumonia Current Visit: Yes Status: Acute Qualifiers: Pneumonia type: due to unspecified organism Laterality: left Lung location: lower lobe of lung Qualified Code(s): J18.1 - Lobar pneumonia, unspecified organism (12) Sepsis Current Visit: Yes Status: Acute Qualifiers: Sepsis type: sepsis due to unspecified organism Qualified Code(s): A41.9 - Sepsis, unspecified organism - Time Spent With Patient Total time spent is greater than 50% in coordination of care (as documented) at patient's floor/unit and/or counseling patient: - Attending Attestation I examined this patient and my medical decision-making was reviewed with the Resident Physician Dr. Rivera. I agree with the documented findings, disposition and treatment plan as described except to the extent set forth below. Mr. Xavier is a 67 year old male with past medical history of CVA in October 2017, diabetes, hypertension, CKD IV, CAD, small cell lung cancer diagnosed in October of 2017 pt was brought into ER by family after he happened to have a fall / near syncope at home. His CXR showed pneumonia and he does have low grade fever T max - 100.1. he is alert, awake and O x 3, however does look little confused , not sure wether this is his baseline or new AMS. Gen: A, A, O x 3 Chest: Diminished BS b/l, No ronchi Heart: S1S2+ RRR a/p 1. Sepsis 2. Acute pneumonia - mostly bacterial 3. Near syncope - vaso vagal 4. Acute toxic encephaloapthy / Delirium 5. Acute hypoxic resp failure Cont O2 Duoneb KATRINA on tele empirical abx IV hydration check sputum cx, Strep, Legionella and Resp inf panel
[2018-03-01] MEDS ORDERED: Naloxone 0.4 MG/ML INJ IVP PRN (17:08)
[2018-03-01] MEDS ORDERED: Acetaminophen 325 MG TABLET PO PRN (17:08)
[2018-03-01] MEDS ORDERED: *HR* Dextrose 50 % in Water (Syg) 50 ML SYRINGE IVP PRN (17:57)
[2018-03-01] MEDS ORDERED: Dextrose Gel 15 GM/37.5 ML TUBE PO PRN ×2 (17:57)
[2018-03-01] MEDS ORDERED: D5% in Water 1,000 ML IVC PRN (17:57)
--- NOTE | 2018-03-01 18:33 | Sepsis Event Note ---
Sepsis Reassessment Note - Evaluation Sepsis Screen: Sepsis Risk Current Stage of Sepsis: sepsis Possible Source of Sepsis: pulmonary - Focused Exam Date of Encounter: 03/01/18 Time of Encounter: 18:32 Vital Signs: Vital Signs Pulse Ox 03/01/18 18:08 97 Respiratory Exam: Present: CTA bilaterally Cardiovascular Exam: Present: RRR, tachycardia, S1, S2 Capillary Refill: > 2 seconds Peripheral Pulse Strength: 2+ slightly diminished Peripheral Pulse Location: Radial Skin Exam: pink
[2018-03-01] MEDS: *HR* Heparin 5,000 UNIT/ML VIAL SQ SCH (20:02)
[2018-03-01] MEDS: Insulin LISPRO 300 UNITS/3 ML VIAL SQ SCH (21:56)
[2018-03-02] MEDS: *HR* Heparin 5,000 UNIT/ML VIAL SQ SCH ×2 (05:43→17:29)
[2018-03-02 07:34] LABS: Basophils % 0.3 %; Eosinophils # 0.2 K/mcL (0.0-0.6); Hematocrit 29.6 % (37.5-50.1); Immature Granulocytes % 0.5 % (0-4); Lymphocytes # 1.6 K/mcL (0.6-4.6); Mean Corpuscular HGB Conc 33.8 g/dL (31.6-35.5); Mean Corpuscular Hemoglobin 32.4 pg (28.0-33.3); Mean Corpuscular Volume 95.8 fL (83.0-100.0); Mean Platelet Volume 9.7 fL (9.4-12.4); Monocytes % 10.1 %; Neutrophils # 6.9 K/mcL (1.6-8.9); Platelet Count 187 K/mcL (140-400); Red Blood Count 3.09 M/mcL (4.19-5.50); Red Cell Distribution Width 13.2 % (11.5-14.5); Segmented Neutrophils % 71.1 %
[2018-03-02 07:42] LABS: Estimated Average Glucose 177 mg/dl; Hemoglobin A1C 7.8 %
--- NOTE | 2018-03-02 08:25 | Internal Med Progress Note ---
<Musa Rivera - Last Filed: 03/02/18 15:08> Hospitalist Progress Note - Encounter Date of Encounter: 03/02/18 Time of Encounter: 14:00 - Subjective Interval History: Patient was seen and examined at bedside. Patient states he continues to deny symptoms including shortness of breath, chest pain, cough, nausea, vomiting, fevers, chills. He continuously states that he would like to go home and live with his children. He states that his kids should be around to visit him but he does know where they are. He does get tearful during examination stating that he does not want to be here and that he wants to be with his family. At this time he is unable to tell me where he is or what the date is. - Exam Vitals: Temp Pulse Resp BP Pulse Ox 99 F 85 16 172/92 95 03/02/18 07:14 03/02/18 07:14 03/02/18 07:14 03/02/18 07:14 03/02/18 07:14 Exam: Gen.: Vitals noted. No acute distress. AAOx1.5, resting comfortably in chair at bedside HEENT: PERRL/EOMI, oropharynx clear, Normocephalic, atraumatic, moist mucous membranes Cardiac: RRR, no murmur, +S1/S2, No BLE edema Pulmonary: Perhaps mildly diminished in left lower lobe otherwise CTA bilaterally, no wheezes, rales or rhonchi, equal chest expansion, unlabored breathing. Abdomen: soft, nontender, BS noted, no guarding, no palpable HSM Skin: warm and dry, no visible lesions. MSK: ROM intact, no joint swelling noted, gait no assessed. Non tender calf or clubbing Neuro: A&Ox1.5, moves all extremities, no focal deficits, sensation intact, muscle strength 5/5 in all extremities Psych: Appropriate mood and behavior, agitated at times - Assessment and Plan (1) Sepsis Current Visit: Yes Status: Resolved Assessment and Plan: - Patient met 4/4 sirs criteria with temperature of 103.1, heart rate 111, respiratory rate 20 and WBC elevation of 13.8 on admission - Sepsis has resolved with normalization of leukocytosis. Patient does still remain mildly tachycardic with most recent heart rate of 90 - Possible source at this time is most likely pneumonia as demonstrated on chest x-ray and left lower lobe on admission - Urinalysis was obtained and did not show evidence of leukocyte esterase or nitrites - Blood cultures were obtained in the emergency department no growth so far. Lactic acid of 1.5 - Antibiotics for community acquired pneumonia of ceftriaxone and azithromycin, day 2 - Patient has been admitted to hospitals in the previous 3 months, however at this time we will continue community-acquired pneumonia treatment as he does not appear clinically ill. Plan - Continue antibiotics as above - Supplemental oxygen as necessary - Continue monitor with daily labs - Sputum culture, Legionella, strep pneumoniae antigen pending - We will consult social work for possible discharge planning (2) Altered mental status Current Visit: Yes Status: Acute Assessment and Plan: - Patient and family report altered mental status of disorientation as well as generalized weakness - Patient is alert and but remains oriented only to self. No family at bedside during examination - Possible etiologies include pneumonia as above versus dehydration. Low suspicion for neurological event at this time as symptoms have not progressed and he is showing no signs of focal neural deficits. Unclear if this is his new baseline mental status - Further management of underlying conditions as elsewhere note - We will also consult social work, physical therapy and occupational therapy (3) Pneumonia Current Visit: Yes Status: Acute Assessment and Plan: - Chest x-ray in emergency primary showed left basilar opacity increase which may reflect atelectasis versus pneumonia. Further treatment as above (4) CVA (cerebral vascular accident) Current Visit: Yes Status: Chronic Assessment and Plan: - History of CVA to the right occipital lobe from the posterior cerebral artery in October 2017. Etiology per most recent neurology note of embolic versus atherosclerotic events. - Patient denies residual deficits - Home medications of aspirin and Plavix per most recent neurology note - CT of head and obtained emergency department negative for acute process Plan - Continue aspirin, Plavix, statin (5) Chronic kidney disease, stage IV (severe) Current Visit: Yes Status: Chronic Assessment and Plan: - Known history of chronic kidney disease with BUNs/creatinine of 44/3.74 on admission - Estimated GFR of 16 which appears to be near his baseline - He did receive sepsis resuscitation bolus on admission - Avoid nephrotoxic agents, renally dose medications - Continue monitor with daily labs (6) Small cell lung cancer Current Visit: Yes Status: Chronic Assessment and Plan: - patient does have a history of small cell lung cancer - Outpatients record reviewed and there is no evidence of oncology progress note - Per primary care physician's most recent documentation on 12/02/17, patient was to receive chemotherapy the following week, however there is no documentation of this - I do not believe him to be immunocompromised at this time - Continue antibiotics as above - Further management as an outpatient I did attempt to contact his son Varun Welch at [phone] for further information, however the call could not be completed. --Upon interview this afternoon, there is no family present at bedside to confirm or deny this history (7) MAHAMED (obstructive sleep apnea) Current Visit: Yes Status: Chronic Assessment and Plan: Continue CPAP at night (8) DM (diabetes mellitus), type 2, uncontrolled, with renal complications Current Visit: Yes Status: Chronic Assessment and Plan: - Uncontrolled diabetes with complications of chronic kidney disease - Patient admits to poor glycemic control and does not test his blood sugars at home - Most recent hemoglobin A1c of 7.8% this morning - Blood sugars ranging in the 100s to 200s - We will continue moderate sliding scale insulin -Consider restarting basal insulin once medications are confirmed by pharmacy - Before meals at bedtime glucose checks, diabetic diet (9) HTN (hypertension) Current Visit: Yes Status: Chronic Assessment and Plan: - Most recent pressure elevated at 186/90 - We will continue home beta asher. Patient also noted. Clonidine at home, we will wait for pharmacy to confirm - Add hydralazine 10 mg when necessary - Continue home medicines once they are confirmed by pharmacy (10) Hyperlipidemia Current Visit: Yes Status: Chronic Assessment and Plan: Continue home statin once meds are confirmed (11) Tobacco use disorder Current Visit: Yes Status: Chronic Assessment and Plan: - Patient does admit to smoking 1/4-1/2 half pack per day - Unwilling to quit at this time - Encouraged cessation as outpatient (12) DVT prophylaxis Current Visit: Yes Status: Acute Assessment and Plan: Heparin 5000 units every 12 hours - Time Spent with Patient Total time spent is greater than 50% in coordination of care (as documented) at patient's floor/unit and/or counseling patient: Internal Medicine: Result - Labs CBC & Chem 7: 03/02/18 07:20 03/01/18 14:55 Labs: Short CBC 03/02/18 Range/Units 07:20 WBC 9.7 (4.3-11.1) K/mcL Hgb 10.0 L D (12.9-16.9) g/dL Hct 29.6 L (37.5-50.1) % Plt Count 187 (140-400) K/mcL Neutrophils # 6.9 (1.6-8.9) K/mcL - ABG Interpretation ABG results: PT/INR, D-dimer PT 10.9 Seconds (9.4-12.1) 03/01/18 14:55 Consult Discharge Plan - Plan Referrals: Tico Thompson MD [Primary Care Provider] - <Citlali Lanza - Last Filed: 03/02/18 15:55> Hospitalist Progress Note - Encounter Date of Encounter: 03/02/18 - Exam Vitals: Temp Pulse Resp BP Pulse Ox 98.6 F 90 18 186/90 96 03/02/18 11:24 03/02/18 11:24 03/02/18 11:24 03/02/18 11:24 03/02/18 11:24 - Assessment and Plan (1) Altered mental status Current Visit: Yes Status: Acute (2) CVA (cerebral vascular accident) Current Visit: Yes Status: Chronic (3) HTN (hypertension) Current Visit: Yes Status: Chronic (4) Hyperlipidemia Current Visit: Yes Status: Chronic (5) DM (diabetes mellitus), type 2, uncontrolled, with renal complications Current Visit: Yes Status: Chronic (6) Tobacco use disorder Current Visit: Yes Status: Chronic (7) MAHAMED (obstructive sleep apnea) Current Visit: Yes Status: Chronic (8) DVT prophylaxis Current Visit: Yes Status: Acute (9) Chronic kidney disease, stage IV (severe) Current Visit: Yes Status: Chronic (10) Small cell lung cancer Current Visit: Yes Status: Chronic (11) Pneumonia Current Visit: Yes Status: Acute (12) Sepsis Current Visit: Yes Status: Resolved - Time Spent with Patient Total time spent is greater than 50% in coordination of care (as documented) at patient's floor/unit and/or counseling patient: Internal Medicine: Result - Labs CBC & Chem 7: 03/02/18 07:20 03/01/18 14:55 Labs: Short CBC 03/02/18 Range/Units 07:20 WBC 9.7 (4.3-11.1) K/mcL Hgb 10.0 L D (12.9-16.9) g/dL Hct 29.6 L (37.5-50.1) % Plt Count 187 (140-400) K/mcL Neutrophils # 6.9 (1.6-8.9) K/mcL - ABG Interpretation ABG results: PT/INR, D-dimer PT 10.9 Seconds (9.4-12.1) 03/01/18 14:55 - Attending Attestation I examined this patient and my medical decision-making was reviewed with the Resident Physician Dr Arroyo. I agree with the documented findings, disposition and treatment plan as described except to the extent set forth below. MR Xavier was brought to ED after he fell out of his chair at home and family was concerned given he has had recent fever at home and generalized weakness. He suffered a stroke in october and has had decline since that time. of note he has dementia and is unable to provide reliable history. He was found to have pna on imaging. He also has a hx of a recently diagnosed lung cancer. awake, alert, stating he just wants to go home bc he isn't sick. Admits to cough and sob. sputum color unknown. Supposed to wear o2 at home and admits he does sometimes "if they tell me to". he is confused to situation and time but knows whom he is and that he is in hospital. Tearful talking out his lungs and wondering if he will from them, not referring to his pneumonia, and I assume is her referring to lung cancer dx. Pt with department clerk at bedside assisting him in eating. No coughing/choking with diet per department clerk. Pt family is not at bedside. Limited ros and hpi given dementia. gen- alert, awake,appears stated age eyes- pupils equal round cv- reg rate and rhythm, normal s1,s2, no murmurs appreciated, no le edmea lungs- ctabl, no wheezing, rhonchi or crackles, diminished posterior bs greatest in bases and on left abd- soft, non tender, non distended, + bs neuro- AAOxperson and at hospital, follows all commands, CN grossly intact, no focal deficits Toxic Encephalopathy 2/2 sepsis on underlying dementia There is no focal neuro deficits to suggest this is related to new cva CT head neg no acute findings -treat infection, reorient as needed Sepsis, Fever T max 103.1 on admit, s.p IVF per protocol, suspected source pna, bl cxs pending , UA not suggestive of infection, no noted wounds or diarrhea, treatment as above Pneumonia, left basilar, organism unkown at this time .-IV abx, nebs, incentive spirometry, organism studies pending, refrigerated [employer] [place], o2 prn (on o2 at home) HTN-home meds are not confirmed, [facility] [employer] notes prior nifedipine and lopressor + clonidine patch, 12/31/17 dc reviewed and doses confirmed, given bps remain above goal will begin lopressor 50 mg bid and add back other meds as appropriate , cont ot monitor bp, will require outpt fu Anemia, normocytic, hgb 11.8 on admit, will cont to monitor, no signs of bleeding at this time. baseline since october appears to be 11s-12s Diabetes Mellitus- a1c 7.8, ssi and accu checks , bs elevated Presyncopal episode at this time, fell out of chair, no noted LOC, appears to be related to sepsis picture, imaging in ED c spine ct and ct head no acute findings- cont tx as above, tele, ekg without acute ischemic changes, incomplete RBBB, no priors for comparison, fall precautions <Musa Rivera - Last Filed: 03/02/18 15:08> (1) Sepsis Qualifiers: Sepsis type: sepsis due to unspecified organism Qualified Code(s): A41.9 - Sepsis, unspecified organism (2) Altered mental status Qualifiers: Altered mental status type: disorientation Qualified Code(s): R41.0 - Disorientation, unspecified (3) Pneumonia Qualifiers: Pneumonia type: due to unspecified organism Laterality: left Lung location: lower lobe of lung Qualified Code(s): J18.1 - Lobar pneumonia, unspecified organism (4) CVA (cerebral vascular accident) Qualifiers: CVA mechanism: unspecified Qualified Code(s): I63.9 - Cerebral infarction, unspecified (9) HTN (hypertension) Qualifiers: Hypertension type: unspecified Qualified Code(s): I10 - Essential (primary) hypertension (10) Hyperlipidemia Qualifiers: Hyperlipidemia type: mixed hyperlipidemia Qualified Code(s): E78.2 - Mixed hyperlipidemia <Citlali Lanza - Last Filed: 03/02/18 15:55> (1) Altered mental status Qualifiers: Altered mental status type: disorientation Qualified Code(s): R41.0 - Disorientation, unspecified (2) CVA (cerebral vascular accident) Qualifiers: CVA mechanism: unspecified Qualified Code(s): I63.9 - Cerebral infarction, unspecified (3) HTN (hypertension) Qualifiers: Hypertension type: unspecified Qualified Code(s): I10 - Essential (primary) hypertension (4) Hyperlipidemia Qualifiers: Hyperlipidemia type: mixed hyperlipidemia Qualified Code(s): E78.2 - Mixed hyperlipidemia (11) Pneumonia Qualifiers: Pneumonia type: due to unspecified organism Laterality: left Lung location: lower lobe of lung Qualified Code(s): J18.1 - Lobar pneumonia, unspecified organism (12) Sepsis Qualifiers: Sepsis type: sepsis due to unspecified organism Qualified Code(s): A41.9 - Sepsis, unspecified organism
[2018-03-02] MEDS: Insulin LISPRO 300 UNITS/3 ML VIAL SQ SCH ×4 (08:44→20:43)
[2018-03-02] MEDS: Aspirin 81 MG TAB.CHEW PO SCH (08:44)
[2018-03-02] MEDS ORDERED: cefTRIAXone 2,000 MG in Water for inj. (sterile) 20 ML 20 ML IVP SCH (15:00)
[2018-03-02] MEDS: Ipratropium/Albuterol Neb 3 ML IH SCH ×4 (15:52→23:33)
[2018-03-02] MEDS ORDERED: Azithromycin 500 MG in D5% in Water 250 ML IVPB SCH (16:00)
[2018-03-03] MEDS: Ipratropium/Albuterol Neb 3 ML IH SCH ×5 (03:52→20:01)
[2018-03-03 04:59] LABS: Mean Corpuscular HGB Conc 33.3 g/dL (31.6-35.5); Mean Corpuscular Hemoglobin 31.8 pg (28.0-33.3); Mean Corpuscular Volume 95.5 fL (83.0-100.0); Mean Platelet Volume 9.3 fL (9.4-12.4); Platelet Count 211 K/mcL (140-400); Red Blood Count 3.14 M/mcL (4.19-5.50); Red Cell Distribution Width 13.2 % (11.5-14.5)
[2018-03-03 05:18] LABS: Calcium 8.7 mg/dL (8.6-10.3); Potassium 3.9 mEq/L (3.5-5.1)
[2018-03-03] MEDS: *HR* Heparin 5,000 UNIT/ML VIAL SQ SCH (06:32)
--- NOTE | 2018-03-03 08:32 | Internal Med Progress Note ---
<Citlali Lanza - Last Filed: 03/03/18 12:21> Hospitalist Progress Note - Encounter Date of Encounter: 03/03/18 - Exam Vitals: Temp Pulse Resp BP Pulse Ox 98.5 F 94 16 160/92 94 03/03/18 07:08 03/03/18 07:08 03/03/18 11:43 03/03/18 07:08 03/03/18 11:43 - Assessment and Plan (1) Altered mental status Current Visit: Yes Status: Acute (2) CVA (cerebral vascular accident) Current Visit: Yes Status: Chronic (3) HTN (hypertension) Current Visit: Yes Status: Chronic (4) Hyperlipidemia Current Visit: Yes Status: Chronic (5) DM (diabetes mellitus), type 2, uncontrolled, with renal complications Current Visit: Yes Status: Chronic (6) Tobacco use disorder Current Visit: Yes Status: Chronic (7) MAHAMED (obstructive sleep apnea) Current Visit: Yes Status: Chronic (8) DVT prophylaxis Current Visit: Yes Status: Acute (9) Chronic kidney disease, stage IV (severe) Current Visit: Yes Status: Chronic (10) Small cell lung cancer Current Visit: Yes Status: Chronic (11) Pneumonia Current Visit: Yes Status: Acute (12) Sepsis Current Visit: Yes Status: Resolved - Time Spent with Patient Total time spent is greater than 50% in coordination of care (as documented) at patient's floor/unit and/or counseling patient: Internal Medicine: Result - Labs CBC & Chem 7: 03/03/18 04:46 03/03/18 04:46 Labs: Short CBC 03/03/18 Range/Units 04:46 WBC 9.8 (4.3-11.1) K/mcL Hgb 10.0 L (12.9-16.9) g/dL Hct 30.0 L (37.5-50.1) % Plt Count 211 (140-400) K/mcL BMP 03/03/18 04:46 Sodium 135 L Potassium 3.9 Chloride 103 Carbon Dioxide 24 BUN 36 H Creatinine 3.32 H Glucose 217 H Calcium 8.7 - ABG Interpretation ABG results: PT/INR, D-dimer PT 10.9 Seconds (9.4-12.1) 03/01/18 14:55 - Impressions Impressions Knee X-Ray 03/03/18 10:25 IMPRESSION: Mild osteoarthritis right knee. Joint effusion. Apparent osteochondral defects medial femoral condyle and medial tibial plateau. MRI correlation may be useful for additional characterization. D/ / Felipe Montalvo / Felipe Montalvo Interpreting Provider: Felipe Montalvo Consult Discharge Plan - Plan Referrals: Tico Thompson MD [Primary Care Provider] - - Attending Attestation I examined this patient and my medical decision-making was reviewed with the Resident Physician Dr Webber. I agree with the documented findings, disposition and treatment plan as described except to the extent set forth below. MR Xavier was brought to ED after he fell out of his chair at home and family was concerned given he has had recent fever at home and generalized weakness. He suffered a stroke in october and has had decline since that time. of note he has dementia and is unable to provide reliable history. He was found to have pna on imaging. He also has a hx of a recently diagnosed lung cancer. awake, alert, wanting to go home bc he feels fine. Denies any pain to me, though noted knee pain to resident. Denies cough, wheezing, sputum. is not sob at rest with o2 in place. perseverates on discharge. no family present. gen- alert, awake,appears stated age cv- reg rate and rhythm, normal s1,s2, no murmurs appreciated, no le edema lungs- ctabl, no wheezing, rhonchi or crackles, diminished posterior bs greatest in bases and on left abd- soft, non tender, non distended, + bs neuro- AA[place]person and city, follows all commands, CN grossly intact, no focal deficits Toxic Encephalopathy 2/2 sepsis on underlying dementia There is no focal neuro deficits to suggest this is related to new cva CT head neg no acute findings -treat infection, reorient as needed Sepsis, Fever T max 103.1 on admit, s.p IVF per protocol, suspected source pna, bl cxs ngtd, UA not suggestive of infection, no noted wounds or diarrhea, remains wiht fever overnight, broaded abx as below Pneumonia, left basilar, organism unkown at this time .-IV abx broadened to include pseudomonal coverage, spring given recent ecf and prior hospital admit with cont fever on iv abx,, nebs, incentive spirometry, organism studies pending, 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 [place], o2 prn (on o2 at home), obtain mrsa swab HTN-home meds are not confirmed, Apsalar notes prior nifedipine and lopressor + clonidine patch, 12/31/17 dc reviewed and doses confirmed, cont lopressor 50 mg bid and add back other meds as appropriate, cont to monitor bp, will require outpt fu Anemia, normocytic, hgb 11.8 on admit,stable will cont to monitor, no signs of bleeding at this time, baseline since october appears to be 11s-12s Diabetes Mellitus- a1c 7.8, ssi and accu checks , bs elevated, confirm home insulin and resume Presyncopal episode at this time, fell out of chair, no noted LOC, appears to be related to sepsis picture, imaging in ED c spine ct and ct head no acute findings- cont tx as above, tele, ekg without acute ischemic changes, incomplete RBBB, no priors for comparison, fall precautions XR right knee to assess pain <Yas Webber - Last Filed: 03/03/18 18:22> Hospitalist Progress Note - Encounter Date of Encounter: 03/03/18 Time of Encounter: 08:32 - Subjective Interval History: was seen at bedside this morning. Overnight he had no acute events. His blood pressure has remained elevated around 163/62 to 160/92. His creatinine is 3.32 and was 3.74 at presentation. He is a poor historian and due to his dementia he is unable to provide any significant history. I denies any complaints but during the physical exam the right knee is examined and shows edema and he is tender to touch. There is no edema appreciated at the other aspects of the lower extremities. I called daughter to ask about his leg and she is unsure if the fall caused the edema. - Exam Vitals: Temp Pulse Resp BP Pulse Ox 98.5 F 94 16 160/92 98 03/03/18 07:08 03/03/18 07:08 03/03/18 07:31 03/03/18 07:08 03/03/18 07:31 Exam: Gen.: Vitals noted. No acute distress, resting comfortably in bed HEENT: Normocephalic, atraumatic, moist mucous membranes Cardiac: RRR, no murmur, +S1/S2, No BLE edema Pulmonary: clear bilaterally, no wheezes, rales or rhonchi, equal chest expansion, unlabored breathing. Abdomen: soft, nontender, BS noted, no guarding, no palpable HSM Skin: warm and dry, no visible lesions. MSK: ROM intact, right knee joint effusion and swelling noted above the right knee, tender upon palpation Neuro: no focal deficits, sensation intact, moves all extremities Psych:Thought content not congruent, not able to provide details about his current presentation - Assessment and Plan (1) Altered mental status Current Visit: Yes Status: Acute Assessment and Plan: He is alert and laying in bed and oriented to only self. There is no family at bedside during the exam. History of dementia Unclear if this mental status is baseline or had worsened prior to the fall. He is not showing any focal neural deficits Possible from dehydration. His glucose was very elevated presentation Urinalysis did not show any bacteria Plan: Continue to prevent any night time disturbance Continue to monitor glucose Avoid ativan Avoid night time distraction Buspar for anxiety (2) CVA (cerebral vascular accident) Current Visit: No Status: Chronic Assessment and Plan: History of CVA to the right occipital lobe from the posterior cerebral artery in October 2017. Etiology per most recent neurology note of embolic versus atherosclerotic events. No residual motor deficits noted Home medications of aspirin and Plavix per most recent neurology note CT of head and obtained emergency department negative for acute process Plan - Continue aspirin, Plavix, statin (3) HTN (hypertension) Current Visit: Yes Status: Chronic Assessment and Plan: Most recent pressure elevated at 160/90 - We will continue home beta asher. Patient also noted. Clonidine at home, awaiting pharmacy to determine his home medication - Add hydralazine 10 mg when necessary - Continue home medicines once they are confirmed by pharmacy - Continue to monitor (4) Hyperlipidemia Current Visit: Yes Status: Chronic Assessment and Plan: Continue home lipitor (5) DM (diabetes mellitus), type 2, uncontrolled, with renal complications Current Visit: Yes Status: Chronic Assessment and Plan: He has uncontrolled diabetes with chronic kidney disease. At presentation his glucose was 317. - Unsure if he follows a diabetic diet at home or checks his glucose at home - Most recent hemoglobin A1c of 7.8% this morning - Blood sugars ranging in the 100s to 200s - We will continue moderate sliding scale insulin - Starting 12 units basal insulin, home dose - Continue diabetic diet - Before meals at bedtime glucose checks, diabetic diet (6) Tobacco use disorder Current Visit: Yes Status: Chronic Assessment and Plan: -Patient does admit to smoking 1/4-1/2 half pack per day - Unwilling to quit at this time - Encouraged cessation as outpatient (7) MAHAMED (obstructive sleep apnea) Current Visit: Yes Status: Chronic Assessment and Plan: Continue CPAP at night (8) Chronic kidney disease, stage IV (severe) Current Visit: Yes Status: Chronic Assessment and Plan: Known history of chronic kidney disease with BUNs/creatinine of 44/3.74 on admission, today creatinine 3.32 and BUN 36 - Estimated GFR of 19 which appears to be near his baseline - He did receive sepsis resuscitation bolus on admission - Avoid nephrotoxic agents, renally dose medications - Continue monitor with daily labs (9) Small cell lung cancer Current Visit: Yes Status: Chronic Assessment and Plan: History of small cell lung cancer - Outpatients record reviewed and there is no evidence of oncology progress note - Per primary care physician's most recent documentation on 12/02/17, patient was to receive chemotherapy the following week, however there is no documentation of this - I do not believe him to be immunocompromised at this time - Continue antibiotics as above - Further management as an outpatient - No family at bedside for more information (10) Pneumonia Current Visit: Yes Status: Acute Assessment and Plan: Chest x-ray in emergency primary showed left basilar opacity increase which may reflect atelectasis versus pneumonia. History of small cell lung cancer. His oxygenation has remained stable. Plan: - Completed azithromycin and ceftriaxone for 2 days -Continue zosyn, day 1 -Urine legionella antigen, strep pneumonia and respiratory panel pending -MRSA nasal swab pending (11) Sepsis Current Visit: Yes Status: Resolved Assessment and Plan: Patient met 4/4 sirs criteria with temperature of 103.1, heart rate 111, respiratory rate 20 and WBC elevation of 13.8 on admission (03/01/18) - Sepsis has resolved with normalization of leukocytosis, white count today 9.8. Patient does still remain mildly tachycardic with most recent heart rate of 90 - Possible source at this time is most likely pneumonia as demonstrated on chest x-ray and left lower lobe on admission - Urinalysis was obtained and did not show evidence of leukocyte esterase or nitrites - Blood cultures were obtained in the emergency department no growth so far. Lactic acid of 1.5 - Antibiotics for community acquired pneumonia of received ceftriaxone and azithromycin for 2 days, stopped today Plan - Started zosyn to cover pseudomonas - Supplemental oxygen as necessary, and wean - Continue monitor with daily labs - Sputum culture, Legionella, strep pneumoniae antigen pending - Social work consulted for possible discharge planning (12) History of recent fall Current Visit: Yes Status: Acute Assessment and Plan: Per daughter today on the phone he fell out of his chair. She stated her cousin witnessed it and she was not there. The fall is likely related to sepsis. In the ED he had CT to the cervical spine and head and no acute findings were note. EKG had no acute ischemic changes, incomplete right bundle branch block. Plan: -Fall precaution -Right knee assessed for pain -Xray noted effusion and no displacement of the knee joint, continue to monitor (13) DVT prophylaxis Current Visit: Yes Status: Acute Assessment and Plan: Heparin 5000 units every 12 hours - Time Spent with Patient Total time spent is greater than 50% in coordination of care (as documented) at patient's floor/unit and/or counseling patient: 25 - 35 minutes Plan of Care Discussed with: family Internal Medicine: Result - Labs CBC & Chem 7: 03/03/18 04:46 03/03/18 04:46 Labs: Short CBC 03/03/18 Range/Units 04:46 WBC 9.8 (4.3-11.1) K/mcL Hgb 10.0 L (12.9-16.9) g/dL Hct 30.0 L (37.5-50.1) % Plt Count 211 (140-400) K/mcL BMP 03/03/18 04:46 Sodium 135 L Potassium 3.9 Chloride 103 Carbon Dioxide 24 BUN 36 H Creatinine 3.32 H Glucose 217 H Calcium 8.7 - ABG Interpretation ABG results: PT/INR, D-dimer PT 10.9 Seconds (9.4-12.1) 03/01/18 14:55 <KalyaniAlanSabihaCitlali - Last Filed: 03/03/18 12:21> (1) Altered mental status Qualifiers: Altered mental status type: disorientation Qualified Code(s): R41.0 - Disorientation, unspecified (2) CVA (cerebral vascular accident) Qualifiers: CVA mechanism: unspecified Qualified Code(s): I63.9 - Cerebral infarction, unspecified (3) HTN (hypertension) Qualifiers: Hypertension type: unspecified Qualified Code(s): I10 - Essential (primary) hypertension (4) Hyperlipidemia Qualifiers: Hyperlipidemia type: mixed hyperlipidemia Qualified Code(s): E78.2 - Mixed hyperlipidemia (11) Pneumonia Qualifiers: Pneumonia type: due to unspecified organism Laterality: left Lung location: lower lobe of lung Qualified Code(s): J18.1 - Lobar pneumonia, unspecified organism (12) Sepsis Qualifiers: Sepsis type: sepsis due to unspecified organism Qualified Code(s): A41.9 - Sepsis, unspecified organism <Akbar,Yas - Last Filed: 03/03/18 18:22> (1) Altered mental status Qualifiers: Altered mental status type: disorientation Qualified Code(s): R41.0 - Disorientation, unspecified (2) CVA (cerebral vascular accident) Qualifiers: CVA mechanism: unspecified Qualified Code(s): I63.9 - Cerebral infarction, unspecified (3) HTN (hypertension) Qualifiers: Hypertension type: unspecified Qualified Code(s): I10 - Essential (primary) hypertension (4) Hyperlipidemia Qualifiers: Hyperlipidemia type: mixed hyperlipidemia Qualified Code(s): E78.2 - Mixed hyperlipidemia (10) Pneumonia Qualifiers: Pneumonia type: due to unspecified organism Laterality: left Lung location: lower lobe of lung Qualified Code(s): J18.1 - Lobar pneumonia, unspecified organism (11) Sepsis Qualifiers: Sepsis type: sepsis due to unspecified organism Qualified Code(s): A41.9 - Sepsis, unspecified organism
[2018-03-03] MEDS: Aspirin 81 MG TAB.CHEW PO SCH (08:54)
[2018-03-03] MEDS: Insulin LISPRO 300 UNITS/3 ML VIAL SQ SCH ×4 (09:10→22:21)
[2018-03-03] MEDS: Piperacillin/Tazobactam 3.375 GM in 0.9 % Sodium Chloride Mini Bag 100 ML IVPB SCH (17:29)
[2018-03-03] MEDS: Insulin DETEMIR 100 UNIT/ML X5UNITS SQ SCH (22:20)
[2018-03-04] MEDS: Ipratropium/Albuterol Neb 3 ML IH SCH ×6 (00:18→19:32)
[2018-03-04] MEDS: *HR* Heparin 5,000 UNIT/ML VIAL SQ SCH ×3 (00:26→21:41)
[2018-03-04] MEDS: Piperacillin/Tazobactam 3.375 GM in 0.9 % Sodium Chloride Mini Bag 100 ML IVPB SCH ×3 (00:47→17:37)
[2018-03-04 06:26] LABS: Basophils % 0.4 %; Eosinophils # 0.3 K/mcL (0.0-0.6); Eosinophils % 3.4 %; Hematocrit 27.4 % (37.5-50.1); Hemoglobin 9.4 g/dL (12.9-16.9); Immature Granulocytes % 0.4 % (0-4); Lymphocytes # 1.4 K/mcL (0.6-4.6); Lymphocytes % 18.6 %; Mean Corpuscular HGB Conc 34.3 g/dL (31.6-35.5); Mean Corpuscular Hemoglobin 32.1 pg (28.0-33.3); Mean Corpuscular Volume 93.5 fL (83.0-100.0); Mean Platelet Volume 9.7 fL (9.4-12.4); Monocytes # 0.7 K/mcL (0.0-1.3); Monocytes % 9.7 %; Neutrophils # 4.9 K/mcL (1.6-8.9); Platelet Count 205 K/mcL (140-400); Red Blood Count 2.93 M/mcL (4.19-5.50); Red Cell Distribution Width 13.1 % (11.5-14.5); Segmented Neutrophils % 67.5 %
[2018-03-04 06:32] LABS: Calcium 8.6 mg/dL (8.6-10.3); Potassium 3.9 mEq/L (3.5-5.1)
[2018-03-04] MEDS: Insulin LISPRO 300 UNITS/3 ML VIAL SQ SCH ×4 (09:12→22:02)
--- NOTE | 2018-03-04 11:00 | Electrocardiograph Report ---
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
[2018-03-04] MEDS: Aspirin 81 MG TAB.CHEW PO SCH (11:09)
--- NOTE | 2018-03-04 13:55 | Internal Med Progress Note ---
<Yas Webber - Last Filed: 03/04/18 16:19> Hospitalist Progress Note - Encounter Date of Encounter: 03/04/18 Time of Encounter: 07:35 - Subjective Interval History: was seen at bedside this morning. Overnight he had no acute events. His blood pressure has remained elevated around 164/83 to 170/94. His creatinine is 3.21 and was 3.74 at presentation. He is a poor historian and due to his dementia he is unable to provide any significant history. He denies any complaints. Yesterday his right knee was tender but today he is able to move his knee without any discomfort. There is still mild edema noted on the right anterior knee likely arthritic as he is mostly bedbound and only gets up to sit in chair. He is unable to provide a complete history due to his agitation. He continued to ask about when he can be discharged. He denied fever, chills, nausea, emesis, shortness of breath, chest pain or abdominal pain. - Exam Vitals: Temp Pulse Resp BP Pulse Ox 97.9 F 95 20 170/94 99 03/04/18 07:16 03/04/18 07:16 03/04/18 11:36 03/04/18 07:16 03/04/18 11:36 Exam: Gen.: Vitals noted. No acute distress, resting comfortably in bed HEENT: Normocephalic, atraumatic, moist mucous membranes Cardiac: RRR, no murmur, +S1/S2, No BLE edema Pulmonary: clear bilaterally, no wheezes, rales or rhonchi, equal chest expansion, unlabored breathing Abdomen: soft, nontender, BS noted, no guarding Skin: warm and dry, no visible lesions MSK: ROM intact, right knee joint effusion and swelling noted above the right knee, tender upon palpation, no erythema noted, non pitting edema of right lower leg Neuro: no focal deficits, sensation intact, moves all extremities Psych:Thought content not congruent, not able to provide details about his current presentation, agitated - Assessment and Plan (1) Altered mental status Current Visit: Yes Status: Acute Assessment and Plan: He is alert and laying in bed and oriented to only self. There is no family at bedside during the exam. History of dementia Unclear if this mental status is baseline or had worsened prior to the fall. He is not showing any focal neural deficits Possible from dehydration. His glucose was very elevated presentation Urinalysis did not show any bacteria Plan: Continue to prevent any night time disturbance Continue to monitor glucose Avoid ativan Avoid night time distraction Buspar for anxiety Added seroquel for agitation today (2) CVA (cerebral vascular accident) Current Visit: No Status: Chronic Assessment and Plan: History of CVA to the right occipital lobe from the posterior cerebral artery in October 2017. Etiology per most recent neurology note of embolic versus atherosclerotic events. No residual motor deficits noted Home medications of aspirin and Plavix per most recent neurology note CT of head and obtained emergency department negative for acute process Plan - Continue aspirin, Plavix, statin (3) HTN (hypertension) Current Visit: Yes Status: Chronic Assessment and Plan: Most recent pressure elevated at 170/94 - We will continue home beta asher. Patient also noted to have a patch, suspected to be clonidine and removed today. - Started home dose of 100 mg BID metoprolol - Restart home Clonidine patch - Hydralazine 10 mg when necessary - Continue to monitor (4) Hyperlipidemia Current Visit: Yes Status: Chronic Assessment and Plan: Continue home lipitor (5) DM (diabetes mellitus), type 2, uncontrolled, with renal complications Current Visit: Yes Status: Chronic Assessment and Plan: He has uncontrolled diabetes with chronic kidney disease. At presentation his glucose was 317. Today is 280. - Unsure if he follows a diabetic diet at home or checks his glucose at home - Most recent hemoglobin A1c of 7.8% this morning - Blood sugars ranging in the 100s to 200s - We will continue moderate sliding scale insulin - Started 12 units basal insulin, home dose yesterday - Continue sliding scale - Continue diabetic diet - Before meals at bedtime glucose checks, diabetic diet (6) Tobacco use disorder Current Visit: Yes Status: Chronic Assessment and Plan: -He admitted to smoking 1/4-1/2 half pack per day upon admission - Unwilling to quit at this time - Encouraged cessation as outpatient (7) MAHAMED (obstructive sleep apnea) Current Visit: Yes Status: Chronic Assessment and Plan: Continue CPAP at night (8) Chronic kidney disease, stage IV (severe) Current Visit: Yes Status: Chronic Assessment and Plan: Known history of chronic kidney disease with BUNs/creatinine of 44/3.74 on admission, today creatinine 3.21 and BUN 36 - Estimated GFR of 19 which appears to be near his baseline - Avoid nephrotoxic agents, renally dose medications - Continue to monitor with daily labs (9) Small cell lung cancer Current Visit: Yes Status: Chronic Assessment and Plan: History of small cell lung cancer - Outpatients record reviewed and there is no evidence of oncology progress note - Per primary care physician's most recent documentation on 12/02/17, patient was to receive chemotherapy the following week, however there is no documentation of this - I do not believe him to be immunocompromised at this time, his platelet count has remained stable, his white count is stable - Continue antibiotics as above - Further management as an outpatient - No family at bedside for more information (10) Pneumonia Current Visit: Yes Status: Acute Assessment and Plan: Chest x-ray in emergency primary showed left basilar opacity increase which may reflect atelectasis versus pneumonia. History of small cell lung cancer. His oxygenation has remained stable. Plan: -Received azithromycin and ceftriaxone for 2 days -Continue zosyn, day 2 -Urine legionella antigen, strep pneumonia and respiratory panel pending -MRSA nasal swab negative (11) Sepsis Current Visit: Yes Status: Resolved Assessment and Plan: Patient met 4/4 sirs criteria with temperature of 103.1, heart rate 111, respiratory rate 20 and WBC elevation of 13.8 on admission (03/01/18) - Sepsis has resolved with normalization of leukocytosis, white count today 7.3. Patient does remain mildly tachycardic with most recent heart rate of 90 - Possible source at this time is most likely pneumonia as demonstrated on chest x-ray and left lower lobe on admission - Urinalysis was obtained and did not show evidence of leukocyte esterase or nitrites - Blood cultures were obtained in the emergency department no growth. Lactic acid of 1.5 at admission. - Antibiotics for community acquired pneumonia of received ceftriaxone and azithromycin for 2 days, stopped - Overnight remained aferbile, but tachycardic and hypertensive (likely from not having home clonidine) Plan - Started zosyn to cover pseudomonas, day 2 - Supplemental oxygen as necessary, wean as he is 99% on 2 liters - Continue monitor with daily labs - Sputum culture, Legionella, strep pneumoniae antigen pending - Social work consulted for possible discharge planning - Restart clonidine (12) DVT prophylaxis Current Visit: Yes Status: Acute Assessment and Plan: Heparin 5000 units every 12 hours (13) Agitated Current Visit: Yes Status: Acute Assessment and Plan: Mr. Xavier has been agitated since presentation. No likely new etiology and unknown of his baseline given he has dementia. No family present at bedside. Urinalysis negative. Plan: -Avoid night time disturbance -In the morning open the curtains -[place] him when he is confused -Seroquel for anxiety -Buspar for anxiety - Time Spent with Patient Total time spent is greater than 50% in coordination of care (as documented) at patient's floor/unit and/or counseling patient: Internal Medicine: Result - Labs CBC & Chem 7: 03/04/18 05:57 03/04/18 05:57 Labs: Short CBC 03/04/18 Range/Units 05:57 WBC 7.3 (4.3-11.1) K/mcL Hgb 9.4 L (12.9-16.9) g/dL Hct 27.4 L (37.5-50.1) % Plt Count 205 (140-400) K/mcL Neutrophils # 4.9 (1.6-8.9) K/mcL BMP 03/04/18 05:57 Sodium 135 L Potassium 3.9 Chloride 103 Carbon Dioxide 25 BUN 36 H Creatinine 3.21 H Glucose 151 H Calcium 8.6 - ABG Interpretation ABG results: PT/INR, D-dimer PT 10.9 Seconds (9.4-12.1) 03/01/18 14:55 Consult Discharge Plan - Plan Referrals: Tico Thompson MD [Primary Care Provider] - <Miguel Angel Jurado - Last Filed: 03/04/18 17:51> Hospitalist Progress Note - Encounter Date of Encounter: 03/04/18 - Exam Vitals: Temp Pulse Resp BP Pulse Ox 97.9 F 105 19 177/90 96 03/04/18 07:16 03/04/18 16:20 03/04/18 16:20 03/04/18 16:20 03/04/18 16:20 - Assessment and Plan (1) Altered mental status Current Visit: Yes Status: Acute (2) CVA (cerebral vascular accident) Current Visit: No Status: Chronic (3) HTN (hypertension) Current Visit: Yes Status: Chronic (4) Hyperlipidemia Current Visit: Yes Status: Chronic (5) DM (diabetes mellitus), type 2, uncontrolled, with renal complications Current Visit: Yes Status: Chronic (6) Tobacco use disorder Current Visit: Yes Status: Chronic (7) MAHAMED (obstructive sleep apnea) Current Visit: Yes Status: Chronic (8) DVT prophylaxis Current Visit: Yes Status: Acute (9) Chronic kidney disease, stage IV (severe) Current Visit: Yes Status: Chronic (10) Small cell lung cancer Current Visit: Yes Status: Chronic (11) Pneumonia Current Visit: Yes Status: Acute (12) Sepsis Current Visit: Yes Status: Resolved (13) Agitated Current Visit: Yes Status: Acute - Time Spent with Patient Total time spent is greater than 50% in coordination of care (as documented) at patient's floor/unit and/or counseling patient: Internal Medicine: Result - Labs CBC & Chem 7: 03/04/18 05:57 03/04/18 05:57 Labs: Short CBC 03/04/18 Range/Units 05:57 WBC 7.3 (4.3-11.1) K/mcL Hgb 9.4 L (12.9-16.9) g/dL Hct 27.4 L (37.5-50.1) % Plt Count 205 (140-400) K/mcL Neutrophils # 4.9 (1.6-8.9) K/mcL BMP 03/04/18 05:57 Sodium 135 L Potassium 3.9 Chloride 103 Carbon Dioxide 25 BUN 36 H Creatinine 3.21 H Glucose 151 H Calcium 8.6 - ABG Interpretation ABG results: PT/INR, D-dimer PT 10.9 Seconds (9.4-12.1) 03/01/18 14:55 - Attending Attestation I examined this patient and my medical decision-making was reviewed with the Resident Physician on 03/04/18. I agree with the documented findings, disposition and treatment plan as described except to the extent set forth below. Mr Xavier is currently admitted for pneumonia and fall. He remains moderate to high risk due to potential for worsening of clinical status. Mr Xavier is sitting in chair. He says no one is helping him. No CP or SOB at this time. No fever or chills. No GI issues. Exam alert Comfortable at this time Mucus membranes dry Heart reg and distant. Lungs diminished but clear Abd soft and nontender No edema I/P 1. Pneumonia 2. Dementia Further diagnoses and plan as above. <Yas Webber - Last Filed: 03/04/18 16:19> (1) Altered mental status Qualifiers: Altered mental status type: disorientation Qualified Code(s): R41.0 - Disorientation, unspecified (2) CVA (cerebral vascular accident) Qualifiers: CVA mechanism: unspecified Qualified Code(s): I63.9 - Cerebral infarction, unspecified (3) HTN (hypertension) Qualifiers: Hypertension type: unspecified Qualified Code(s): I10 - Essential (primary) hypertension (4) Hyperlipidemia Qualifiers: Hyperlipidemia type: mixed hyperlipidemia Qualified Code(s): E78.2 - Mixed hyperlipidemia (10) Pneumonia Qualifiers: Pneumonia type: due to unspecified organism Laterality: left Lung location: lower lobe of lung Qualified Code(s): J18.1 - Lobar pneumonia, unspecified organism (11) Sepsis Qualifiers: Sepsis type: sepsis due to unspecified organism Qualified Code(s): A41.9 - Sepsis, unspecified organism <Miguel Angel Jurado - Last Filed: 03/04/18 17:51> (1) Altered mental status Qualifiers: Altered mental status type: disorientation Qualified Code(s): R41.0 - Disorientation, unspecified (2) CVA (cerebral vascular accident) Qualifiers: CVA mechanism: other Qualified Code(s): I63.89 - Other cerebral infarction (3) HTN (hypertension) Qualifiers: Hypertension type: essential hypertension Qualified Code(s): I10 - Essential (primary) hypertension (4) Hyperlipidemia Qualifiers: Hyperlipidemia type: mixed hyperlipidemia Qualified Code(s): E78.2 - Mixed hyperlipidemia (11) Pneumonia Qualifiers: Pneumonia type: due to unspecified organism Laterality: left Lung location: lower lobe of lung Qualified Code(s): J18.1 - Lobar pneumonia, unspecified organism (12) Sepsis Qualifiers: Sepsis type: sepsis due to unspecified organism Qualified Code(s): A41.9 - Sepsis, unspecified organism
[2018-03-04] MEDS ORDERED: Ipratropium/Albuterol Neb 3 ML IH PRN (19:53)
[2018-03-04] MEDS ORDERED: CloNIDine Patch 0.1 MG PATCH (WEEKLY) TD SCH (20:45)
[2018-03-04] MEDS: Insulin DETEMIR 100 UNIT/ML X5UNITS SQ SCH (22:02)
[2018-03-05] MEDS: Piperacillin/Tazobactam 3.375 GM in 0.9 % Sodium Chloride Mini Bag 100 ML IVPB SCH ×3 (01:20→17:54)
[2018-03-05 05:36] LABS: Basophils % 0.5 %; Eosinophils # 0.4 K/mcL (0.0-0.6); Eosinophils % 5.3 %; Hematocrit 27.1 % (37.5-50.1); Hemoglobin 9.3 g/dL (12.9-16.9); Immature Granulocytes % 0.5 % (0-4); Lymphocytes # 1.2 K/mcL (0.6-4.6); Mean Corpuscular HGB Conc 34.3 g/dL (31.6-35.5); Mean Corpuscular Hemoglobin 32.2 pg (28.0-33.3); Mean Corpuscular Volume 93.8 fL (83.0-100.0); Mean Platelet Volume 9.7 fL (9.4-12.4); Monocytes # 0.7 K/mcL (0.0-1.3); Monocytes % 9.2 %; Neutrophils # 5.2 K/mcL (1.6-8.9); Platelet Count 239 K/mcL (140-400); Red Blood Count 2.89 M/mcL (4.19-5.50); Segmented Neutrophils % 68.5 %
[2018-03-05 05:47] LABS: Calcium 8.7 mg/dL (8.6-10.3); Magnesium 1.6 mg/dL (1.6-2.6)
[2018-03-05] MEDS: *HR* Heparin 5,000 UNIT/ML VIAL SQ SCH ×2 (06:05→17:53)
[2018-03-05] MEDS: Aspirin 81 MG TAB.CHEW PO SCH (08:40)
[2018-03-05] MEDS: Insulin LISPRO 300 UNITS/3 ML VIAL SQ SCH ×4 (08:43→20:18)
--- NOTE | 2018-03-05 11:19 | Internal Med Progress Note ---
<Yas Webber - Last Filed: 03/05/18 15:55> Hospitalist Progress Note - Encounter Date of Encounter: 03/05/18 Time of Encounter: 08:50 - Subjective Interval History: was seen in a bedside chair this morning. Overnight he had no acute events and vitals remained remained stable. His blood pressure has remained elevated, 166/80 to 158/77 and heart rate was 92-70. He was restarted on his clonidine patch yesterday. His creatinine is 3.10 today. He had just finished his breakfast. He appears comfortable in the chair. He is unable to provide a complete history due to his agitation. He continued to ask about when he can be discharged. He denied fever, chills, nausea, emesis, shortness of breath, chest pain or abdominal pain. - Exam Vitals: Temp Pulse Resp BP Pulse Ox 98.3 F 70 18 158/77 97 03/05/18 11:13 03/05/18 11:13 03/05/18 11:13 03/05/18 11:13 03/05/18 11:13 Exam: Gen.: Vitals noted. No acute distress, resting comfortably in chair HEENT: Normocephalic, atraumatic, moist mucous membranes Cardiac: RRR, no murmur, +S1/S2, No BLE edema Pulmonary: clear bilaterally, no wheezes, rales or rhonchi, equal chest expansion, unlabored breathing Abdomen: soft, nontender, BS noted, no guarding Skin: warm and dry, no visible lesions MSK: ROM intact, no erythema noted, active range of motion, no edema of lower extermities Neuro: no focal deficits, sensation intact, moves all extremities Psych:Thought content not congruent, not able to provide details about his current presentation, agitated - Assessment and Plan (1) Altered mental status Current Visit: Yes Status: Resolved Assessment and Plan: He is alert and sitting in chair and only oriented to himself. There is no family at bedside during the exam. History of dementia Agitation seems improved since starting seroquel yesterday Unclear if this mental status is baseline or had worsened prior to the fall. He is not showing any focal neural deficits Possible was from dehydration. His glucose was very elevated presentation Urinalysis did not show any bacteria Plan: Continue to prevent any night time disturbance Continue to monitor glucose Avoid ativan Avoid night time distraction Buspar for anxiety Continue seroquel (2) CVA (cerebral vascular accident) Current Visit: No Status: Chronic Assessment and Plan: History of CVA to the right occipital lobe from the posterior cerebral artery in October 2017. Etiology per most recent neurology note of embolic versus atherosclerotic events. No residual motor deficits noted Home medications of aspirin and Plavix per most recent neurology note CT of head and obtained emergency department negative for acute process Plan - Continue aspirin, Plavix, statin (3) HTN (hypertension) Current Visit: Yes Status: Chronic Assessment and Plan: Most recent pressure elevated at 158/77 - Continue home dose of 100 mg BID metoprolol - Continue home Clonidine patch - Hydralazine 10 mg when necessary - Continue to monitor (4) Hyperlipidemia Current Visit: Yes Status: Chronic Assessment and Plan: Continue home lipitor (5) DM (diabetes mellitus), type 2, uncontrolled, with renal complications Current Visit: Yes Status: Chronic Assessment and Plan: He has uncontrolled diabetes with chronic kidney disease. At presentation his glucose was 317. This morning glucose was 138. - Unsure if he follows a diabetic diet at home or checks his glucose at home - Most recent hemoglobin A1c of 7.8% - Blood sugars ranging in the 100s to 200s - We will continue moderate sliding scale insulin - Continue 12 units basal insulin, home dose yesterday - Continue sliding scale - Continue diabetic diet - Before meals at bedtime glucose checks, diabetic diet (6) Tobacco use disorder Current Visit: Yes Status: Chronic Assessment and Plan: He admitted to smoking 1/4-1/2 half pack per day upon admission - Unwilling to quit at this time - Encouraged cessation as outpatient (7) MAHAMED (obstructive sleep apnea) Current Visit: Yes Status: Chronic Assessment and Plan: Continue CPAP at night (8) Chronic kidney disease, stage IV (severe) Current Visit: Yes Status: Chronic Assessment and Plan: Known history of chronic kidney disease with BUNs/creatinine of 44/3.74 on admission, today creatinine 3.10 and BUN 36 - Estimated GFR of 20 which appears to be near his baseline - Avoid nephrotoxic agents, renally dose medications - Continue to monitor with daily labs (9) Small cell lung cancer Current Visit: Yes Status: Chronic Assessment and Plan: History of small cell lung cancer - Outpatients record reviewed and there is no evidence of oncology progress note - Per primary care physician's most recent documentation on 12/02/17, patient was to receive chemotherapy the following week, however there is no documentation of this - I do not believe him to be immunocompromised at this time, his platelet count has remained stable, his white count is stable - Continue antibiotics as above - Further management as an outpatient - No family at bedside for more information (10) Pneumonia Current Visit: Yes Status: Acute Assessment and Plan: Chest x-ray in emergency primary showed left basilar opacity increase which may reflect atelectasis versus pneumonia. History of small cell lung cancer. His oxygenation has remained stable. Plan: -Received azithromycin and ceftriaxone for 2 days -Continue zosyn, day 3 -Urine legionella antigen, strep pneumonia and respiratory panel pending -MRSA nasal swab negative (11) Sepsis Current Visit: Yes Status: Resolved Assessment and Plan: Patient met 4/4 sirs criteria with temperature of 103.1, heart rate 111, respiratory rate 20 and WBC elevation of 13.8 on admission (03/01/18) - Sepsis has resolved with normalization of leukocytosis, white count today 7.3. Patient does remain mildly tachycardic with most recent heart rate of 90 - Possible source at this time is most likely pneumonia as demonstrated on chest x-ray and left lower lobe on admission - Urinalysis was obtained and did not show evidence of leukocyte esterase or nitrites - Blood cultures were obtained in the emergency department no growth. Lactic acid of 1.5 at admission. - Antibiotics for community acquired pneumonia of received ceftriaxone and azithromycin for 2 days, stopped - Overnight remained aferbile, but tachycardic and hypertensive (likely from not having home clonidine) Plan - Continue zosyn to cover pseudomonas, day 3 - Supplemental oxygen as necessary, wean as he is 99% on 2 liters - Continue monitor with daily labs - Sputum culture, Legionella, strep pneumoniae antigen pending - Social work consulted for possible discharge planning - Continue clonidine (12) DVT prophylaxis Current Visit: Yes Status: Acute Assessment and Plan: Heparin 5000 units every 12 hours (13) Agitated Current Visit: Yes Status: Acute Assessment and Plan: Mr. Xavier has been agitated since presentation. No likely new etiology and unknown of his baseline given he has dementia. No family present at bedside. Urinalysis negative. Improved today after starting seroquel yesterday. Plan: -Avoid night time disturbance -In the morning open the curtains -[place] him when he is confused -Continue Seroquel for anxiety -Buspar for anxiety - Time Spent with Patient Total time spent is greater than 50% in coordination of care (as documented) at patient's floor/unit and/or counseling patient: less than 15 minutes Plan of Care Discussed with: patient Internal Medicine: Result - Labs CBC & Chem 7: 03/05/18 04:42 03/05/18 04:42 Labs: Short CBC 03/05/18 Range/Units 04:42 WBC 7.6 (4.3-11.1) K/mcL Hgb 9.3 L (12.9-16.9) g/dL Hct 27.1 L (37.5-50.1) % Plt Count 239 (140-400) K/mcL Neutrophils # 5.2 (1.6-8.9) K/mcL BMP 03/05/18 04:42 Sodium 137 Potassium 4.0 Chloride 104 Carbon Dioxide 25 BUN 36 H Creatinine 3.10 H Glucose 143 H Calcium 8.7 - ABG Interpretation ABG results: PT/INR, D-dimer PT 10.9 Seconds (9.4-12.1) 03/01/18 14:55 Consult Discharge Plan - Plan Referrals: Tico Thompson MD [Primary Care Provider] - <Miguel Angel Jurado - Last Filed: 03/05/18 18:00> Hospitalist Progress Note - Encounter Date of Encounter: 03/05/18 - Exam Vitals: Temp Pulse Resp BP Pulse Ox 98.1 F 75 18 160/81 99 03/05/18 16:45 03/05/18 16:45 03/05/18 16:45 03/05/18 16:45 03/05/18 16:45 - Assessment and Plan (1) Altered mental status Current Visit: Yes Status: Resolved (2) CVA (cerebral vascular accident) Current Visit: No Status: Chronic (3) HTN (hypertension) Current Visit: Yes Status: Chronic (4) Hyperlipidemia Current Visit: Yes Status: Chronic (5) DM (diabetes mellitus), type 2, uncontrolled, with renal complications Current Visit: Yes Status: Chronic (6) Tobacco use disorder Current Visit: Yes Status: Chronic (7) MAHAMED (obstructive sleep apnea) Current Visit: Yes Status: Chronic (8) DVT prophylaxis Current Visit: Yes Status: Acute (9) Chronic kidney disease, stage IV (severe) Current Visit: Yes Status: Chronic (10) Small cell lung cancer Current Visit: Yes Status: Chronic (11) Pneumonia Current Visit: Yes Status: Acute (12) Sepsis Current Visit: Yes Status: Resolved (13) Agitated Current Visit: Yes Status: Acute - Time Spent with Patient Total time spent is greater than 50% in coordination of care (as documented) at patient's floor/unit and/or counseling patient: Internal Medicine: Result - Labs CBC & Chem 7: 03/05/18 04:42 03/05/18 04:42 Labs: Short CBC 03/05/18 Range/Units 04:42 WBC 7.6 (4.3-11.1) K/mcL Hgb 9.3 L (12.9-16.9) g/dL Hct 27.1 L (37.5-50.1) % Plt Count 239 (140-400) K/mcL Neutrophils # 5.2 (1.6-8.9) K/mcL BMP 03/05/18 04:42 Sodium 137 Potassium 4.0 Chloride 104 Carbon Dioxide 25 BUN 36 H Creatinine 3.10 H Glucose 143 H Calcium 8.7 - ABG Interpretation ABG results: PT/INR, D-dimer PT 10.9 Seconds (9.4-12.1) 03/01/18 14:55 - Attending Attestation I examined this patient and my medical decision-making was reviewed with the Resident Physician on 03/05/18. I agree with the documented findings, disposition and treatment plan as described except to the extent set forth below. Mr Xavier is currently admitted for pneumonia. He remains moderate to high risk due to potential for worsening clinical status. Mr Xavier is feeling OK. No fever or chills. Sitting up in chair. No abd pain. Exam alert Comfortable Mucus membranes dry Heart reg No wheeze at this time Abd soft No edema I/P 1. Pneumonia 2. Dementia It appears the plan to go to [facility] and home tomorrow. Further diagnoses and plan as above. <Yas Webber - Last Filed: 03/05/18 15:55> (1) Altered mental status Qualifiers: Altered mental status type: disorientation Qualified Code(s): R41.0 - Disorientation, unspecified (2) CVA (cerebral vascular accident) Qualifiers: CVA mechanism: other Qualified Code(s): I63.89 - Other cerebral infarction (3) HTN (hypertension) Qualifiers: Hypertension type: essential hypertension Qualified Code(s): I10 - Essential (primary) hypertension (4) Hyperlipidemia Qualifiers: Hyperlipidemia type: mixed hyperlipidemia Qualified Code(s): E78.2 - Mixed hyperlipidemia (10) Pneumonia Qualifiers: Pneumonia type: due to unspecified organism Laterality: left Lung location: lower lobe of lung Qualified Code(s): J18.1 - Lobar pneumonia, unspecified organism (11) Sepsis Qualifiers: Sepsis type: sepsis due to unspecified organism Qualified Code(s): A41.9 - Sepsis, unspecified organism <Miguel Angel Jurado - Last Filed: 03/05/18 18:00> (1) Altered mental status Qualifiers: Altered mental status type: disorientation Qualified Code(s): R41.0 - Disorientation, unspecified (2) CVA (cerebral vascular accident) Qualifiers: CVA mechanism: other Qualified Code(s): I63.89 - Other cerebral infarction (3) HTN (hypertension) Qualifiers: Hypertension type: essential hypertension Qualified Code(s): I10 - Essential (primary) hypertension (4) Hyperlipidemia Qualifiers: Hyperlipidemia type: mixed hyperlipidemia Qualified Code(s): E78.2 - Mixed hyperlipidemia (11) Pneumonia Qualifiers: Pneumonia type: due to unspecified organism Laterality: left Lung location: lower lobe of lung Qualified Code(s): J18.1 - Lobar pneumonia, unspecified organism (12) Sepsis Qualifiers: Sepsis type: sepsis due to unspecified organism Qualified Code(s): A41.9 - Sepsis, unspecified organism
[2018-03-05] MEDS: Insulin DETEMIR 100 UNIT/ML X5UNITS SQ SCH (20:19)
[2018-03-05] MEDS ORDERED: *HR* LORazepam 2 MG/ML VIAL IVP ONE (21:30)
[2018-03-06] MEDS: Piperacillin/Tazobactam 3.375 GM in 0.9 % Sodium Chloride Mini Bag 100 ML IVPB SCH ×2 (01:30→07:43)
[2018-03-06 03:38] LABS: Basophils # 0.1 K/mcL (0.0-0.2); Basophils % 0.9 %; Eosinophils # 0.5 K/mcL (0.0-0.6); Eosinophils % 6.3 %; Hematocrit 26.5 % (37.5-50.1); Immature Granulocytes % 0.2 % (0-4); Lymphocytes # 1.8 K/mcL (0.6-4.6); Lymphocytes % 22.8 %; Mean Corpuscular Hemoglobin 32.1 pg (28.0-33.3); Mean Corpuscular Volume 94.6 fL (83.0-100.0); Mean Platelet Volume 9.6 fL (9.4-12.4); Monocytes # 0.7 K/mcL (0.0-1.3); Monocytes % 8.7 %; Neutrophils # 4.9 K/mcL (1.6-8.9); Platelet Count 234 K/mcL (140-400); Red Cell Distribution Width 13.1 % (11.5-14.5); Segmented Neutrophils % 61.1 %
[2018-03-06 03:59] LABS: Calcium 8.3 mg/dL (8.6-10.3); Potassium 4.1 mEq/L (3.5-5.1)
[2018-03-06] MEDS: *HR* Heparin 5,000 UNIT/ML VIAL SQ SCH (06:09)
[2018-03-06 07:40] VITALS: BP 159/86
[2018-03-06] MEDS: Aspirin 81 MG TAB.CHEW PO SCH (07:42)
[2018-03-06] MEDS: Insulin LISPRO 300 UNITS/3 ML VIAL SQ SCH ×2 (07:51→12:50)
--- NOTE | 2018-03-06 12:59 | Discharge Summary ---
<Akbar,Yas - Last Filed: 03/06/18 13:11> - NOTES TO OUTPATIENT PROVIDER Notes to Outpatient Provider: Mr. Xavier was presented to the ED due to a recent fall at home while he was sitting, the fall was not observed by family members. In the ED he received a CT of the head and neck and did not show intracranial involvement. Chest xray showed left lower lobe consolidation. He was started on zosyn and received 4 days of treatment. PT evaluated him and recommended rehab but patient refused, given his dementia, the POA (his son) was called and they agreed to home with home hospice. Due to his drug allergy and limitation for oral agents available, he will received augmentin for 6 days , completing the total 10 day therapy. Orders not resulted at time of discharge: Pending orders 03/01/18 18:57 Culture,Sputum with Gram Stain [RM] Routine Respiratory Infection Panel [MOLMIC] Routine Date of Encounter: 03/06/18 Time of Encounter: 09:00 - Discharge Diagnosis (1) Pneumonia Priority: Primary Status: Acute Qualifiers: Pneumonia type: due to unspecified organism Laterality: left Lung location: lower lobe of lung Qualified Code(s): J18.1 - Lobar pneumonia, unspecified organism (2) Altered mental status Priority: Secondary Status: Resolved Qualifiers: Altered mental status type: disorientation Qualified Code(s): R41.0 - Disorientation, unspecified (3) CVA (cerebral vascular accident) Priority: Secondary Status: Chronic Qualifiers: CVA mechanism: other Qualified Code(s): I63.89 - Other cerebral infarction (4) HTN (hypertension) Priority: Secondary Status: Chronic Qualifiers: Hypertension type: essential hypertension Qualified Code(s): I10 - Essential (primary) hypertension (5) Hyperlipidemia Priority: Secondary Status: Chronic Qualifiers: Hyperlipidemia type: mixed hyperlipidemia Qualified Code(s): E78.2 - Mixed hyperlipidemia (6) DM (diabetes mellitus), type 2, uncontrolled, with renal complications Priority: Secondary Status: Chronic (7) Tobacco use disorder Priority: Secondary Status: Chronic (8) MAHAMED (obstructive sleep apnea) Priority: Secondary Status: Chronic (9) Chronic kidney disease, stage IV (severe) Priority: Secondary Status: Chronic (10) Small cell lung cancer Priority: Secondary Status: Chronic (11) Sepsis Priority: Secondary Status: Resolved Qualifiers: Sepsis type: sepsis due to unspecified organism Qualified Code(s): A41.9 - Sepsis, unspecified organism (12) DVT prophylaxis Priority: Secondary Status: Acute (13) Agitated Priority: Secondary Status: Acute Hospital course: Mr. Xavier is a 67 year old male with past medical history of CVA in October 2017, diabetes, hypertension, CKD IV, CAD with defibrillator, small cell lung cancer diagnosed in October of 2017. He presented to the ED from home where he feel while sitting in a chair. Patient reportedly has been in and out of hospitals and nursing facility since October 2017 after suffering ischemic stroke to the left occipital lobe. On presentation to the emergency room, his vital signs are significant for temperature of 103.1, heart rate 111, respiratory rate 20, he is saturating 94% on 2 L of nasal cannula. Troponin was negative at 0.03 and EKG performed in emergency department showed sinus tachycardia. Urinalysis did not show leukocyte esterase. Blood cultures were negative. Chest xray of the chest showed left lower lobe consolidation. CT of the head and cervical spine did not show any intracranial or carnival spine fractures. Since his admission he was treated for the pneumonia and received 4 days of zosyn. Clinically he appears to have improved from the pneumonia stand point but will require 6 additional days of antibiotic therapy. Due to his drug allergy and limitation for oral agents available, he will received augmentin for 6 days, completing the total 10 day therapy. PT evaluated him and recommended rehab but patient refused, given his dementia, the POA (his son) was called and they agreed to home with home hospice. Discharge discussed with: patient, social work, case management - Time Spent with Patient Total time spent providing and/or coordinating discharge services: Less than 30 minutes - Discharge Medications Prescriptions: Amoxicillin/Clavulanate [Augmentin] 500 mg PO BIDWM 6 Days #12 tablet Clopidogrel [Plavix] 75 mg PO DAILY 30 Days #30 tablet Home Medications: Omeprazole [PriLOSEC] 40 mg PO DAILY 01/08/16 [History] OxyCODONE/APAP 10/325 [Percocet 10/325 MG] 1 tab PO Q4H PRN 01/08/16 [History] Nitroglycerin 0.4 mg SL Q5MIN PRN #25 tab.subl 05/28/16 [Rx] Albuterol Sulfate [Ventolin Hfa] 2 puff IH Q4H PRN 11/14/17 [History] Albuterol Neb [Proventil Neb] 2.5 mg IH Q4HR PRN 01/01/18 [History] Aspirin 81 mg PO DAILY 01/01/18 [History] Atorvastatin [Lipitor] 40 mg PO DAILY 01/01/18 [History] Tamsulosin HCl [Flomax] 0.4 mg PO DAILY 01/01/18 [History] CloNIDine Patch [Catapres-Tts] 0.1 mg TP QWEEK 03/01/18 [History] Metoprolol Tartrate 100 mg PO BID 03/01/18 [History] Insulin Glargine [Lantus] 12 units SQ HS 03/03/18 [History] Amoxicillin/Clavulanate [Augmentin] 500 mg PO BIDWM 6 Days #12 tablet 03/06/18 [ Rx] Clopidogrel [Plavix] 75 mg PO DAILY 30 Days #30 tablet 03/06/18 [Rx] Allergies/Adverse Reactions: 3 Allergy/AdvReac Type Severity Reaction Status Date / Time ciprofloxacin [From Cipro] Allergy Hives Verified 03/01/18 17:06 Sulfa (Sulfonamide Allergy Hives Verified 03/01/18 17:06 Antibiotics) celecoxib AdvReac Nausea Verified 03/01/18 17:06 Date of admission: 03/01/18 16:48 Primary care physician: Tico Thompson MD Consults: 03/01/18 17:10 Consult to Occupational Therapy [CONS] Routine Comment: Evaluate, develop and implement POC Reason for Consult: weakness, fall Does patient have active BEDREST order?: No Is patient medically & hemodynamically stable?: Yes Patient assessed for mobility or mobilized this visit?: No Consult to Physical Therapy [CONS] Routine Comment: Evaluate, develop and implement POC Reason for Consult: weakness, fall Does patient have active BEDREST order?: No Is patient medically & hemodynamically stable?: Yes Patient assessed for mobility or mobilized this visit?: No 03/01/18 18:30 Consult to Respiratory Therapy [CONS] Routine Reason for Consult: Patient septic, order for BiPAP Call Completed: No 03/01/18 18:51 Consult to Nutrition [CONS] Routine Comment: Consulting Provider: NUTRITION Reason for Dietary Consult: PO Supplementation Consult to Physician/Internist [CONS] Routine Reason for SW Consult: ecf placement Discharging clinician: Yas Webber Anticipated date of discharge: 03/06/18 - Constitutional Vitals: Temp Pulse Resp BP Pulse Ox 97.8 F 85 16 159/86 97 03/06/18 07:30 03/06/18 07:30 03/06/18 07:30 03/06/18 07:30 03/06/18 07:30 General appearance: Present: cooperative, no acute distress Exam: Gen.: Vitals noted. No acute distress, resting comfortably in bed HEENT: Normocephalic, atraumatic, moist mucous membranes Cardiac: RRR, no murmur, +S1/S2, No BLE edema Pulmonary: no wheezes, rales or rhonchi, equal chest expansion, unlabored breathing, diminished breath sounds in left lower lung lobe Abdomen: soft, nontender, BS noted, no guarding Skin: warm and dry, no visible lesions MSK: ROM intact, no erythema noted, active range of motion, no edema of lower extermities Neuro: no focal deficits, sensation intact, moves all extremities Psych:Thought content not congruent, not able to provide details about his current presentation, anxious - Head Head exam: Present: atraumatic, normocephalic - Eye Eye exam: Present: EOMI, sclera anicteric - ENT ENT exam: Present: mucous membranes moist - Neck Neck exam general surgery: Present: full ROM - Respiratory Respiratory exam: Absent: rhonchi, wheezes Additional comments: decreased breath sounds in left lower lung lobe - Cardiovascular Cardiovascular exam: Present: RRR, +S1, +S2 - GI/Abdominal GI/Abdominal exam: Present: normal bowel sounds, soft. Absent: firm, rigid - Extremities Exam Extremities exam: Present: warm. Absent: pedal edema, tenderness - Psychiatric Psychiatric exam: Present: anxious, flat affect - Skin Skin exam: Present: dry, warm. Absent: erythema - Patient Status Disposition: Hospice - Home Condition: Fair Overall status at discharge: patient is progressing back to baseline - Discharge Instructions Instructions: Chronic Hypertension (DC) Follow Up With: Tico Thompson MD [Primary Care Provider] - - Diet and Activity Activity: other (as tolerated given a recent fall activities should be under monitor) Diet: diabetic diet <Miguel Angel Jurado - Last Filed: 03/06/18 14:15> Orders not resulted at time of discharge: Pending orders 03/01/18 18:57 Culture,Sputum with Gram Stain [RM] Routine Respiratory Infection Panel [MOLMIC] Routine Date of Encounter: 03/06/18 - Discharge Diagnosis (1) Altered mental status Status: Chronic Qualifiers: Altered mental status type: disorientation Qualified Code(s): R41.0 - Disorientation, unspecified (2) CVA (cerebral vascular accident) Status: Chronic Qualifiers: CVA mechanism: other Qualified Code(s): I63.89 - Other cerebral infarction (3) HTN (hypertension) Status: Chronic Qualifiers: Hypertension type: essential hypertension Qualified Code(s): I10 - Essential (primary) hypertension (4) Hyperlipidemia Status: Chronic Qualifiers: Hyperlipidemia type: mixed hyperlipidemia Qualified Code(s): E78.2 - Mixed hyperlipidemia (5) DM (diabetes mellitus), type 2, uncontrolled, with renal complications Status: Chronic (6) Tobacco use disorder Status: Chronic (7) MAHAMED (obstructive sleep apnea) Status: Chronic (8) DVT prophylaxis Status: Suspected (9) Chronic kidney disease, stage IV (severe) Status: Chronic (10) Small cell lung cancer Status: Chronic (11) Pneumonia Status: Acute Qualifiers: Pneumonia type: due to unspecified organism Laterality: left Lung location: lower lobe of lung Qualified Code(s): J18.1 - Lobar pneumonia, unspecified organism (12) Sepsis Status: Resolved Qualifiers: Sepsis type: sepsis due to unspecified organism Qualified Code(s): A41.9 - Sepsis, unspecified organism (13) Agitated Status: Acute Hospital course: Mr. Xavier is a 67 year old male - Time Spent with Patient Total time spent providing and/or coordinating discharge services: my time is 39 min Date of admission: 03/01/18 16:48 Primary care physician: Tico Thompson MD Consults: 03/01/18 17:10 Consult to Occupational Therapy [CONS] Routine Comment: Evaluate, develop and implement POC Reason for Consult: weakness, fall Does patient have active BEDREST order?: No Is patient medically & hemodynamically stable?: Yes Patient assessed for mobility or mobilized this visit?: No Consult to Physical Therapy [CONS] Routine Comment: Evaluate, develop and implement POC Reason for Consult: weakness, fall Does patient have active BEDREST order?: No Is patient medically & hemodynamically stable?: Yes Patient assessed for mobility or mobilized this visit?: No 03/01/18 18:30 Consult to Respiratory Therapy [CONS] Routine Reason for Consult: Patient septic, order for BiPAP Call Completed: No 03/01/18 18:51 Consult to Nutrition [CONS] Routine Comment: Consulting Provider: NUTRITION Reason for Dietary Consult: PO Supplementation Consult to Physician/Internist [CONS] Routine Reason for SW Consult: ecf placement - Constitutional Vitals: Temp Pulse Resp BP Pulse Ox 97.8 F 85 16 159/86 97 03/06/18 07:30 03/06/18 07:30 03/06/18 07:30 03/06/18 07:30 03/06/18 07:30 - Attending Attestation I examined this patient and my medical decision-making was reviewed with the Resident Physician on 03/06/18. I agree with the documented findings, disposition and treatment plan as described except to the extent set forth below. Mr Xavier has been admitted for pneumonia and sepsis. He has steadily improved. He is now afebrile. Arrangements have been made for [facility] to see him at home. Exam alert Comfortable Mucus membranes dry Heart distant No wheeze Abd soft Plan D/C home today with [facility] to see.
--- NOTE | 2018-03-06 13:54 | Physician Discharge Referral ---
Home Health/Hosp Referral Info Transfer to: Hospice (home hospice) Provider in Charge Post Discharge: PCP (home hospice care providers) - Diagnosis (1) Pneumonia Priority: Primary Status: Acute (2) Altered mental status Priority: Secondary Status: Chronic (3) CVA (cerebral vascular accident) Priority: Secondary Status: Chronic (4) HTN (hypertension) Priority: Secondary Status: Chronic (5) Hyperlipidemia Priority: Secondary Status: Chronic (6) DM (diabetes mellitus), type 2, uncontrolled, with renal complications Priority: Secondary Status: Chronic (7) Tobacco use disorder Priority: Secondary Status: Chronic (8) MAHAMED (obstructive sleep apnea) Priority: Secondary Status: Chronic (9) Chronic kidney disease, stage IV (severe) Priority: Secondary Status: Chronic (10) Small cell lung cancer Priority: Secondary Status: Chronic (11) Agitated Priority: Secondary Status: Acute (12) Sepsis Priority: Secondary Status: Resolved (13) DVT prophylaxis Priority: Secondary Status: Suspected - Respiratory Orders Smoking Cessation: Smoking cessation has been advised. For more information, call the [facility] Quit Line at [phone]. - Diet/Nutrition Diet/Nutrition Orders: No Concentrated Sweets - Activity Activity: List: activity with close monitoring as the patient fell leading to admission - Services Needed Following services are medically necessary services: Home Health Aide (Due to dementia patient is not able to take his own medications) - Transfer Medications Prescriptions: Amoxicillin/Clavulanate [Augmentin] 500 mg PO BIDWM 6 Days #12 tablet Clopidogrel [Plavix] 75 mg PO DAILY 30 Days #30 tablet Home Medications: Omeprazole [PriLOSEC] 40 mg PO DAILY 01/08/16 [History] OxyCODONE/APAP 10/325 [Percocet 10/325 MG] 1 tab PO Q4H PRN 01/08/16 [History] Nitroglycerin 0.4 mg SL Q5MIN PRN #25 tab.subl 05/28/16 [Rx] Albuterol Sulfate [Ventolin Hfa] 2 puff IH Q4H PRN 11/14/17 [History] Albuterol Neb [Proventil Neb] 2.5 mg IH Q4HR PRN 01/01/18 [History] Aspirin 81 mg PO DAILY 01/01/18 [History] Atorvastatin [Lipitor] 40 mg PO DAILY 01/01/18 [History] Tamsulosin HCl [Flomax] 0.4 mg PO DAILY 01/01/18 [History] CloNIDine Patch [Catapres-Tts] 0.1 mg TP QWEEK 03/01/18 [History] Metoprolol Tartrate 100 mg PO BID 03/01/18 [History] Insulin Glargine [Lantus] 12 units SQ HS 03/03/18 [History] Amoxicillin/Clavulanate [Augmentin] 500 mg PO BIDWM 6 Days #12 tablet 03/06/18 [ Rx] Clopidogrel [Plavix] 75 mg PO DAILY 30 Days #30 tablet 03/06/18 [Rx] Allergies/Adverse Reactions: 3 Allergy/AdvReac Type Severity Reaction Status Date / Time ciprofloxacin [From Cipro] Allergy Hives Verified 03/01/18 17:06 Sulfa (Sulfonamide Allergy Hives Verified 03/01/18 17:06 Antibiotics) celecoxib AdvReac Nausea Verified 03/01/18 17:06 Certification: Further, I certify that my clinical findings support that this patient is homebound (i.e. absences from home require considerable and taxing effort and are for medical reasons or [facility] services or infrequently or short duration when for other reasons) because: Homebound Reason: Altered mental status requiring supervision when leaving home Attestation: My signature below is to certify that this patient is under my care and that I, or nurse practitioner, or a physician's assistant federal public defender working with me, has a face-to -face encounter with this patient.
[2018-03-07] MEDS ORDERED: levoFLOXacin 500 MG TABLET PO SCH (09:00)
[2018-03-07] MEDS ORDERED: Amoxicillin/Clavulanate 500 MG TABLET PO SCH (09:00)
== END 2018-03-06 15:18 | disposition hospice, home (50) | DRG 871 ==
LOC: 2NENU 14:09 → EMEROOARM 14:09 → SUATTDRO 16:48 → 2NENU 17:16
PROVIDERS: ADMIT Internal Medicine; ATTEND Internal Medicine

== ENCOUNTER 2018-03-23 12:35 | Observation (INO) ==
--- NOTE | 2018-03-23 12:54 | Emergency Department Note ---
Disposition Clinical Impression: [id number] kidney injury Qualifiers: Acute renal failure type: unspecified Chronic kidney disease stage: stage 4 (severe) Qualified Code(s): N17.9 - Acute kidney failure, unspecified; N18.4 - Chronic kidney disease, stage 4 (severe) Nausea & vomiting Qualifiers: Vomiting type: unspecified Vomiting Intractability: intractable Qualified Code (s): R11.2 - Nausea with vomiting, unspecified Anemia Qualifiers: Anemia type: unspecified type Qualified Code(s): D64.9 - Anemia, unspecified Disposition: Admitted As Inpatient Referrals: Tico Thompson MD [Primary Care Provider] - Time of Disposition: 14:42 General Adult HPI - General Stated complaint: doesn't feel good Time Seen by Provider: 03/23/18 12:38 Source: patient Nursing Notes Reviewed: Yes Vital Signs Reviewed: Yes - History of Present Illness HPI Narrative: Patient is a 67-year-old male with history of stage III lung cancer, CKD, CVA, hypertension who presents the emergency department with complaints of "not feeling good". Patient is altered at baseline the patient's family states that over the past several days he has been feeling unwell and had several episodes of vomiting. He otherwise had decreased oral intake. Daughter reportedly gave him Zofran just prior to arriving to the emergency department with improvement in his nausea. Denies any fever, diarrhea, falls or trauma, headache, change in mental status. Otherwise no recent changes in his medications. Patient's history is limited by his baseline dementia resultant from his CVA. - Related Data Home Medications Medication Instructions Recorded Confirmed Omeprazole [PriLOSEC] 40 mg PO DAILY 01/08/16 03/10/18 OxyCODONE/APAP 10/325 [Percocet 1 tab PO Q4H PRN 01/08/16 03/10/18 10/325 MG] Albuterol Sulfate [Ventolin Hfa] 2 puff IH Q4H PRN 11/14/17 03/10/18 Albuterol Neb [Proventil Neb] 2.5 mg IH Q4HR PRN 01/01/18 03/10/18 Aspirin 81 mg PO DAILY 01/01/18 03/10/18 Atorvastatin [Lipitor] 40 mg PO DAILY 01/01/18 03/10/18 Tamsulosin HCl [Flomax] 0.4 mg PO DAILY 01/01/18 03/10/18 CloNIDine Patch [Catapres-Tts] 0.1 mg TP QWEEK 03/01/18 03/10/18 Metoprolol Tartrate 100 mg PO BID 03/01/18 03/10/18 Insulin Glargine [Lantus] 12 units SQ HS 03/03/18 03/10/18 Previous Rx's Medication Instructions Recorded Nitroglycerin 0.4 mg SL Q5MIN PRN #25 tab.subl 05/28/16 Clopidogrel [Plavix] 75 mg PO DAILY 30 Days #30 tablet 03/06/18 Ondansetron ODT [Zofran ODT] 4 mg SL Q8HR PRN #12 tab.rapdis 03/20/18 Allergies Allergy/AdvReac Type Severity Reaction Status Date / Time ciprofloxacin [From Cipro] Allergy Hives Verified 03/20/18 17:14 Sulfa (Sulfonamide Allergy Hives Verified 03/20/18 17:14 Antibiotics) celecoxib AdvReac Nausea Verified 03/20/18 17:14 Review of Systems: As Per HPI Limitations: ROS unobtainable due to patients medical condition Past Medical History - Past Medical History Source: patient, old records reviewed Medical history: Reports: cancer (lung), CVA, dementia, diabetes, glaucoma, hyperlipidemia, hypertension, kidney stones, malignancy, renal disease, other Surgical history: Reports: cholecystectomy, orthopedic, other, other Psychiatric history: Reports: depression - Social History Smoking Status: Current every day smoker Smokeless Tobacco Status: No (former user of chew) Alcohol use: Reports: none Drug use: Reports: none Physical Exam Generally ill-appearing male, follows commands, oriented to person only - General Limitations: altered mental status (baseline dementia) General appearance: alert, in no apparent distress - Head Head exam: atraumatic, normocephalic - Eye Eye exam: Present: normal appearance, PERRL, EOMI - ENT ENT exam: normal exam, normal oropharynx - Neck Neck exam: Present: normal inspection, trachea midline - Chest Chest inspection: Present: normal inspection. Absent: tenderness - Respiratory Respiratory exam: Present: normal lung sounds bilaterally, other (on baseline 2L oxygen). Absent: respiratory distress - Cardiovascular Cardiovascular exam: Present: regular rate, normal rhythm, normal heart sounds - Abdominal Exam Abdominal exam: Present: soft, Non-Tender, normal bowel sounds - Male exam: Present: normal inspection, normal testicular lie. Absent: circumcised - Extremities Exam Extremities exam: Present: normal inspection. Absent: pedal edema - Neurological Exam Neurological exam: Present: alert, other (oriented to person only) - Expanded Neurological Exam Patient oriented to: Present: person Speech: Present: fluid speech Cranial nerves: EOM function (II, III, IV, ): Normal, facial sensation (V): Normal, facial palsy (VII): Normal, gag reflex (IX): Normal, spinal accessory function (XI): Normal, tongue deviation (XII): Normal Motor strength - LUE: 5/5 Motor strength - RUE: 5/5 Motor strength - LLE: 5/5 Motor strength - RLE: 5/5 Upper motor neuron exam: jorge neglect: Absent bilaterally, pronator drift: Absent bilaterally Sensory exam upper extremity: light touch: Normal Sensory exam lower extremity: light touch: Normal DTR: Achilles tendon (L): 2+, Achilles tendon (R): 2+ Coma Scale Eye Opening: Spontaneous Coma Scale Motor Response: Obeys Commands Coma Scale Verbal Response: Oriented (baseline oriented to person only) Coma Scale Total: 15 - Psychiatric Psychiatric exam: Present: normal affect, normal mood - Skin Skin exam: Present: warm, dry, intact Course - Consultations Consultation #1: Discussed case with hospitalist who will admit the patient. Time: 14:42 Vital Signs Temperature 98.2 F 03/23/18 12:55 Pulse Rate 88 03/23/18 12:55 Respiratory Rate 18 03/23/18 12:55 Blood Pressure 161/78 03/23/18 12:55 O2 Sat by Pulse Oximetry 100 03/23/18 12:55 Temperature 98.2 F 03/23/18 12:55 Pulse Rate 77 03/23/18 14:47 Respiratory Rate 14 03/23/18 14:47 Blood Pressure 147/81 03/23/18 14:47 O2 Sat by Pulse Oximetry 99 03/23/18 14:47 Oxygen Delivery Oxygen Delivery Nasal Cannula Medical Decision Making - MDM Narrative Medical decision making narrative: Patient with acute onset of nausea and vomiting with significant past medical history but no worsening of his mentation or shortness of breath. He sats well on his baseline 2 L. Patient is afebrile on presentation. Concern for acute infectious process versus gastroenteritis. Workup including CBC, BMP, EKG, troponin revealed slight worsening of his renal failure, creatinine to 3.63. Also with proteinuria and glucosuria. Otherwise continued chronic anemia. Chest x-ray shows no evidence of recurrent pneumonia. Patient is on hospice and has a home health nurse but after discussion with the patient's family they do not feel comfortable bringing the patient home due to his poor oral intake and continued nausea. Discussed the case with hospitalist, Dr. Pamla who will admit the patient. The patients family agree with and understands the course of treatment plan including plan for admission. All questions answered. - Medical Records Medical records reviewed: Yes I reviewed the patient's medical records. - Lab Data Lab results reviewed: Yes I reviewed the patient's lab results. Result diagrams: 03/23/18 13:02 03/23/18 13:02 Lab Results 03/23/18 03/23/18 03/23/18 Range/Units 13:02 13:02 13:02 WBC 11.9 H (4.3-11.1) K/mcL RBC 3.75 L (4.19-5.50) M/mcL Hgb 12.3 L (12.9-16.9) g/dL Hct 35.5 L (37.5-50.1) % MCV 94.7 (83.0-100.0) fL MCH 32.8 (28.0-33.3) pg MCHC 34.6 (31.6-35.5) g/dL RDW 12.9 (11.5-14.5) % Plt Count 294 (140-400) K/mcL MPV 9.5 (9.4-12.4) fL Immature Gran % 0.4 (0-4) % Seg Neutrophils % 83.1 % Lymphocytes % 10.5 % Monocytes % 5.3 % Eosinophils % 0.3 % Basophils % 0.4 % Neutrophils # 9.9 H (1.6-8.9) K/mcL Lymphocytes # 1.3 (0.6-4.6) K/mcL Monocytes # 0.6 (0.0-1.3) K/mcL Eosinophils # 0.0 (0.0-0.6) K/mcL Basophils # 0.1 (0.0-0.2) K/mcL PT 11.9 (9.4-12.1) Seconds INR 1.1 Sodium 134 L (136-145) mEq/L Potassium 3.9 (3.5-5.1) mEq/L Chloride 101 (98-107) mEq/L Carbon Dioxide 22 L (23-29) mEq/L BUN 34 H (8-23) mg/dL Creatinine 3.63 H (0.70-1.30) mg/dL Est GFR ( Amer) 20 L (> 60) Est GFR (Non-Af Amer) 17 L (> 60) BUN/Creatinine Ratio 9 (6-26) Glucose 225 H (70-105) mg/dL Calculated Osmolality 293 (280-300) Calcium 9.2 (8.6-10.3) mg/dL Total Bilirubin 0.5 (0.3-1.0) mg/dL AST 15 (13-39) Units/L ALT 10 (7-52) Units/L Alkaline Phosphatase 109 H (34-104) Units/L Troponin I < 0.03 (< 0.04) ng/mL Serum Total Protein 6.9 (6.4-8.9) g/dL Albumin 3.4 L (3.5-5.7) g/dL Globulin 3.5 (2.4-3.5) g/dL Albumin/Globulin Ratio 1.0 L (1.1-2.2) Urine Color (Yellow) Urine Clarity (Clear) Urine pH (5.0-8.0) pH Units Ur Specific [place] (1.010-1.025) Urine Protein (Neg-Trace) mg/dL Urine Glucose (UA) (Normal) mg/dL Urine Ketones (Negative) mg/dL Urine Blood (Negative) Urine Nitrite (Negative) Urine Bilirubin (Negative) Urine Urobilinogen (Normal) mg/dL Ur Leukocyte Esterase (Negative) Urine Microscopic RBC (0-3) per hpf Urine Microscopic WBC (0-3) per hpf Ur Squamous Epith Cells (None-Few) per lpf Amorphous Sediment (Few) Urine Bacteria (None-Few) per hpf Urine Mucus (Few) Ur Culture Indicated? (NO) 03/23/18 Range/Units 13:47 WBC (4.3-11.1) K/mcL RBC (4.19-5.50) M/mcL Hgb (12.9-16.9) g/dL Hct (37.5-50.1) % MCV (83.0-100.0) fL MCH (28.0-33.3) pg MCHC (31.6-35.5) g/dL RDW (11.5-14.5) % Plt Count (140-400) K/mcL MPV (9.4-12.4) fL Immature Gran % (0-4) % Seg Neutrophils % % Lymphocytes % % Monocytes % % Eosinophils % % Basophils % % Neutrophils # (1.6-8.9) K/mcL Lymphocytes # (0.6-4.6) K/mcL Monocytes # (0.0-1.3) K/mcL Eosinophils # (0.0-0.6) K/mcL Basophils # (0.0-0.2) K/mcL PT (9.4-12.1) Seconds INR Sodium (136-145) mEq/L Potassium (3.5-5.1) mEq/L Chloride (98-107) mEq/L Carbon Dioxide (23-29) mEq/L BUN (8-23) mg/dL Creatinine (0.70-1.30) mg/dL Est GFR ( Amer) (> 60) Est GFR (Non-Af Amer) (> 60) BUN/Creatinine Ratio (6-26) Glucose (70-105) mg/dL Calculated Osmolality (280-300) Calcium (8.6-10.3) mg/dL Total Bilirubin (0.3-1.0) mg/dL AST (13-39) Units/L ALT (7-52) Units/L Alkaline Phosphatase (34-104) Units/L Troponin I (< 0.04) ng/mL Serum Total Protein (6.4-8.9) g/dL Albumin (3.5-5.7) g/dL Globulin (2.4-3.5) g/dL Albumin/Globulin Ratio (1.1-2.2) Urine Color Yellow (Yellow) Urine Clarity Turbid A (Clear) Urine pH 6.0 (5.0-8.0) pH Units Ur Specific [place] 1.022 (1.010-1.025) Urine Protein >=1000 H (Neg-Trace) mg/dL Urine Glucose (UA) 500 H (Normal) mg/dL Urine Ketones Trace H (Negative) mg/dL Urine Blood Negative (Negative) Urine Nitrite Negative (Negative) Urine Bilirubin Small H (Negative) Urine Urobilinogen Normal (Normal) mg/dL Ur Leukocyte Esterase Negative (Negative) Urine Microscopic RBC Present (0-3) per hpf Urine Microscopic WBC Present (0-3) per hpf Ur Squamous Epith Cells Present (None-Few) per lpf Amorphous Sediment Many H (Few) Urine Bacteria Present (None-Few) per hpf Urine Mucus Present (Few) Ur Culture Indicated? NO (NO) - Radiology Data Radiology results reviewed: Yes I reviewed the patient's radiology results. Chest X-Ray 03/23/18 12:48 IMPRESSION: 1. No acute abnormality. D/ / Adrien Spear MD / Adrien Spear MD Interpreting Provider: Adrien Spear MD - EKG Data EKG #1 EKG attestation: Yes I reviewed and interpreted this EKG. EKG results narrative: Normal Sinus rhythm rate of 83. QRS 144, QTC 418, QTC 490. No acute ST elevation.
--- NOTE | 2018-03-23 13:02 | Emergency Department Note ---
Disposition Clinical Impression: Delirium due to general medical condition Disposition: Still a Patient Referrals: Tico Thompson MD [Primary Care Provider] - General Adult HPI - General Chief complaint: ED Altered Mental Status Stated complaint: doesn't feel good Time Seen by Provider: 03/23/18 12:38 Source: patient Limitations: altered mental status Nursing Notes Reviewed: Yes Vital Signs Reviewed: Yes - History of Present Illness HPI Narrative: Attestation note I examined this patient and my medical decision-making was reviewed with the Resident Physician/NEUROLOGY TEACHER/PA. I agree with the documented findings, disposition and treatment plan as described except to the extent set forth below Patient seen with emergency medicine resident IGNACIO CHIN, please see copy of his note for details of this patient encounter Briefly: 67-year-old male history of baseline dementia diabetes hypertension among others by EMS for increased confusion and warmth and groin. Patient was seen twice in the past week and a half for similar symptoms. Patient is hypertensive otherwise afebrile with stable vitals. Patient will get screening labs. EKG. Awaiting arrival of family members for more complete medical information. Disposition pending. Pain Scale: 0 - Related Data Home Medications Medication Instructions Recorded Confirmed Omeprazole [PriLOSEC] 40 mg PO DAILY 01/08/16 03/10/18 OxyCODONE/APAP 10/325 [Percocet 1 tab PO Q4H PRN 01/08/16 03/10/18 10/325 MG] Albuterol Sulfate [Ventolin Hfa] 2 puff IH Q4H PRN 11/14/17 03/10/18 Albuterol Neb [Proventil Neb] 2.5 mg IH Q4HR PRN 01/01/18 03/10/18 Aspirin 81 mg PO DAILY 01/01/18 03/10/18 Atorvastatin [Lipitor] 40 mg PO DAILY 01/01/18 03/10/18 Tamsulosin HCl [Flomax] 0.4 mg PO DAILY 01/01/18 03/10/18 CloNIDine Patch [Catapres-Tts] 0.1 mg TP QWEEK 03/01/18 03/10/18 Metoprolol Tartrate 100 mg PO BID 03/01/18 03/10/18 Insulin Glargine [Lantus] 12 units SQ HS 03/03/18 03/10/18 Previous Rx's Medication Instructions Recorded Nitroglycerin 0.4 mg SL Q5MIN PRN #25 tab.subl 05/28/16 Clopidogrel [Plavix] 75 mg PO DAILY 30 Days #30 tablet 03/06/18 Ondansetron ODT [Zofran ODT] 4 mg SL Q8HR PRN #12 tab.rapdis 03/20/18 Allergies Allergy/AdvReac Type Severity Reaction Status Date / Time ciprofloxacin [From Cipro] Allergy Hives Verified 03/20/18 17:14 Sulfa (Sulfonamide Allergy Hives Verified 03/20/18 17:14 Antibiotics) celecoxib AdvReac Nausea Verified 03/20/18 17:14 Past Medical History - Past Medical History Medical history: Reports: CVA, dementia, diabetes, glaucoma, hyperlipidemia, hypertension, kidney stones, malignancy, renal disease, other Surgical history: Reports: cholecystectomy, orthopedic, other, other Psychiatric history: Reports: depression - Social History Smoking Status: Current every day smoker Smokeless Tobacco Status: No (former user of chew) Alcohol use: Reports: none Drug use: Reports: none Physical Exam - General Limitations: altered mental status General appearance: lethargic Course Vital Signs Temperature 98.2 F 03/23/18 12:55 Pulse Rate 88 03/23/18 12:55 Respiratory Rate 18 03/23/18 12:55 Blood Pressure 161/78 03/23/18 12:55 O2 Sat by Pulse Oximetry 100 03/23/18 12:55 Temperature 98.2 F 03/23/18 12:55 Pulse Rate 88 03/23/18 12:55 Respiratory Rate 18 03/23/18 12:55 Blood Pressure 161/78 03/23/18 12:55 O2 Sat by Pulse Oximetry 100 03/23/18 12:55 Oxygen Delivery Oxygen Delivery Room Air
[2018-03-23 13:16] LABS: Basophils # 0.1 K/mcL (0.0-0.2); Basophils % 0.4 %; Eosinophils % 0.3 %; Hematocrit 35.5 % (37.5-50.1); Hemoglobin 12.3 g/dL (12.9-16.9); Immature Granulocytes % 0.4 % (0-4); Lymphocytes # 1.3 K/mcL (0.6-4.6); Lymphocytes % 10.5 %; Mean Corpuscular HGB Conc 34.6 g/dL (31.6-35.5); Mean Corpuscular Hemoglobin 32.8 pg (28.0-33.3); Mean Corpuscular Volume 94.7 fL (83.0-100.0); Mean Platelet Volume 9.5 fL (9.4-12.4); Monocytes # 0.6 K/mcL (0.0-1.3); Monocytes % 5.3 %; Neutrophils # 9.9 K/mcL (1.6-8.9); Platelet Count 294 K/mcL (140-400); Red Blood Count 3.75 M/mcL (4.19-5.50); Red Cell Distribution Width 12.9 % (11.5-14.5); Segmented Neutrophils % 83.1 %
[2018-03-23 13:25] LABS: INR 1.1; Prothrombin Time 11.9 Seconds (9.4-12.1)
[2018-03-23 13:35] LABS: Alanine Aminotransferase 10 Units/L (7-52); Albumin 3.4 g/dL (3.5-5.7); Alkaline Phosphatase 109 Units/L (34-104); Aspartate Amino Transferase 15 Units/L (13-39); BUN/Creatinine Ratio 9 (6-26); Bilirubin,Total 0.5 mg/dL (0.3-1.0); Blood Urea Nitrogen 34 mg/dL (8-23); Calcium 9.2 mg/dL (8.6-10.3); Carbon Dioxide 22 mEq/L (23-29); Chloride 101 mEq/L (98-107); Globulin 3.5 g/dL (2.4-3.5); Glucose 225 mg/dL (70-105); Osmolality,Calculated 293 (280-300); Potassium 3.9 mEq/L (3.5-5.1); Sodium 134 mEq/L (136-145); Total Protein 6.9 g/dL (6.4-8.9); eGFR For Non-African Americans 17 (> 60)
[2018-03-23 13:58] LABS: Troponin I < 0.03 ng/mL (< 0.04)
[2018-03-23 13:59] LABS: Bilirubin,Urine Small (Negative); Blood,Urine Negative (Negative); Clarity,Urine Turbid (Clear); Color,Urine Yellow (Yellow); Glucose,Urine (UA) 500 mg/dL (Normal); Ketones,Urine Trace mg/dL (Negative); Leukocyte Esterase,Urine Negative (Negative); Nitrite,Urine Negative (Negative); Protein,Urine >=1000 mg/dL (Neg-Trace); Specific Gravity,Urine 1.022 (1.010-1.025); Urobilinogen,Urine Normal (Normal)
[2018-03-23 14:12] LABS: Amorphous Sediment,Urine Many (Few); Bacteria,Urine Present per hpf (None-Few); Mucus,Urine Present (Few); RBC,Urine Present per hpf (0-3); Squamous Epithelial Cell,Urine Present per lpf (None-Few); WBC,Urine Present per hpf (0-3)
[2018-03-23] MEDS ORDERED: Naloxone 0.4 MG/ML INJ IVP PRN (17:34)
--- NOTE | 2018-03-23 17:54 | Internal Med History&Physical ---
Date of Encounter: 03/23/18 Time of Encounter: 17:43 Internal Medicine - H&P: HPI Chief complaint: "I dont feel well" Admitted From: Emergency Dept Plans for Post Hospital Care: Home History of present illness: Mr. Xavier is a 67 year old male past medical history of CK D states for stage III lung cancer-small cell CVA hypertension brain aneurysm with clip diabetes hypertension. Patient is normally altered at baseline he has experienced a stroke and has right-sided weakness as well as aphasia. Patient lives with his son Varun Xavier Alvin-loss at bedside states that he has not been feeling well for the past several days has had several episodes of vomiting and decreased oral intake. Unsure if he has been experiencing diarrhea however she suspects that he may have. Patient was recently treated for pneumonia however [id number] states she has not noticed a cough. There has been no change in his mental state no falls or trauma. Patient does have history of stage III lung cancer is not receiving any chemotherapy at this time. Patient is oriented to self and when I ask why he is here he says "to get better"family denies any recent travel or exposure to illness. No fevers however the family does report that patient has been wearing lots of blankets around the house. He presented to the ER with the above complaints chest x-ray cleared no acute abnormality. Lab work did reveal there is slight elevation in white count urinalysis is unremarkable he does have CK D creatinine appears to be stable however his GFR is down troponins negative. Patient has been admitted for further workup evaluation I did discuss CODE STATUS with family history he is a DNR however unsure if his CCA or cc contact and power of erisa attorney paperwork. Patient denies any chest pain shortness of breath or abdominal pain this time. He does have a stage II pressure ulcer on his coccyx Past Med Surg Social Fam HX - Past Medical History Medical history: cancer, CVA, dementia, diabetes, glaucoma, hyperlipidemia, hypertension, kidney stones, malignancy, renal disease Additional medical history: sleep apnea, erectile dysfunction, psoriasis Psychiatric history: depression - Past Surgical History Surgical History: cholecystectomy, orthopedic, other, other Additional surgical history: back surgery, loop monitor left chest, aneurysm clamped x2 - Social History Smoking Status: Current every day smoker Packs per day: 1 Smokeless Tobacco Status: No (former user of chew) Alcohol use: none Drug use: none - Family History Father Living Status: Hx Family Cardiac Disorders: Yes Mother Living Status: Hx Family Cancer: Yes Brother Living Status: Hx Family Cardiac Disorders: Yes Hx Family Cancer: Yes Internal Medicine - H&P: Meds Omeprazole [PriLOSEC] 40 mg PO DAILY 01/08/16 [History] OxyCODONE/APAP 10/325 [Percocet 10/325 MG] 1 tab PO Q4H PRN 01/08/16 [History] Nitroglycerin 0.4 mg SL Q5MIN PRN #25 tab.subl 05/28/16 [Rx] Albuterol Sulfate [Ventolin Hfa] 2 puff IH Q4H PRN 11/14/17 [History] Albuterol Neb [Proventil Neb] 2.5 mg IH Q4HR PRN 01/01/18 [History] Aspirin 81 mg PO DAILY 01/01/18 [History] Atorvastatin [Lipitor] 40 mg PO DAILY 01/01/18 [History] Tamsulosin HCl [Flomax] 0.4 mg PO DAILY 01/01/18 [History] CloNIDine Patch [Catapres-Tts] 0.1 mg TP QWEEK 03/01/18 [History] Metoprolol Tartrate 100 mg PO BID 03/01/18 [History] Insulin Glargine [Lantus] 12 units SQ HS 03/03/18 [History] Clopidogrel [Plavix] 75 mg PO DAILY 30 Days #30 tablet 03/06/18 [Rx] Ondansetron ODT [Zofran ODT] 4 mg SL Q8HR PRN #12 tab.rapdis 03/20/18 [Rx] Allergy/AdvReac Type Severity Reaction Status Date / Time ciprofloxacin [From Cipro] Allergy Hives Verified 03/20/18 17:14 Sulfa (Sulfonamide Allergy Hives Verified 03/20/18 17:14 Antibiotics) celecoxib AdvReac Nausea Verified 03/20/18 17:14 All Systems PM: A 10-system review of systems was performed and is negative for pertinent findings except as documented above in the HPI. - Constitutional Constitutional: anorexia, weight loss - EENT Eyes: no change in vision, no discharge, no pain, no photophobia - Cardiovascular Cardiovascular ROS IM: no chest pain, no diaphoresis, no dyspnea, no lightheadedness, no palpitations, no syncope - Respiratory Respiratory: cough, no dyspnea, no wheezing, no excessive phlegm production - Gastrointestinal Gastrointestinal: diarrhea, nausea, vomiting, no abdominal pain, no hematemesis, no hematochezia, no melena - Musculoskeletal Musculoskeletal ROS IM: no numbness, no tingling - Integumentary Integumentary IM: no rash, no unusual bruising - Neurological Neurological ROS: no confusion, no convulsions, no focal weakness, no numbness, no tingling, no tremor(s) - Hematologic/Lymphatic Hematologic/Lymphatic: no easy bruising - Constitutional Vitals: Temp Pulse Resp BP Pulse Ox 98.2 F 88 15 162/84 99 03/23/18 12:55 03/23/18 16:24 03/23/18 16:24 03/23/18 16:24 03/23/18 16:24 General appearance: Present: A&O X 1 Exam: . - Head Head exam: Present: atraumatic, normocephalic - Eye Eye exam: Present: PERRL, conjuntiva pink, sclera anicteric Pupils: Present: PERRL - Neck Neck exam general surgery: Present: supple, trachea midline. Absent: lymphadenopathy - Respiratory Respiratory exam: Present: CTAB. Absent: accessory muscle use, rales, rhonchi, wheezes - Cardiovascular Cardiovascular exam: Present: RRR, +S1, +S2. Absent: diastolic murmur, gallop, rubs, systolic murmur - GI/Abdominal GI/Abdominal exam: Present: normal bowel sounds, soft, tenderness, no peritoneal signs. Absent: distended - Extremities Exam Extremities exam: Present: warm, radial pulses palpable and symmetrical. Absent: calf tenderness, cyanotic, pedal edema - Neurological Exam Neurological exam: Present: CN II-XII intact, oriented X3, no focal deficits. Absent: pronater drift, facial droop, speech deficit - Skin Skin exam: Present: dry, intact Internal Med - H&P Results - Labs CBC & Chem 7: 03/23/18 13:02 03/23/18 13:02 Labs: Short CBC 03/23/18 Range/Units 13:02 WBC 11.9 H (4.3-11.1) K/mcL Hgb 12.3 L (12.9-16.9) g/dL Hct 35.5 L (37.5-50.1) % Plt Count 294 (140-400) K/mcL Neutrophils # 9.9 H (1.6-8.9) K/mcL BMP 03/23/18 13:02 Sodium 134 L Potassium 3.9 Chloride 101 Carbon Dioxide 22 L BUN 34 H Creatinine 3.63 H Glucose 225 H Calcium 9.2 Cardiac Enzymes 03/23/18 Range/Units 13:02 Troponin I < 0.03 (< 0.04) ng/mL Liver Function 03/23/18 Range/Units 13:02 Total Bilirubin 0.5 (0.3-1.0) mg/dL AST 15 (13-39) Units/L ALT 10 (7-52) Units/L Alkaline Phosphatase 109 H (34-104) Units/L Albumin 3.4 L (3.5-5.7) g/dL Urine 03/23/18 Range/Units 13:47 Urine Color Yellow (Yellow) Urine Clarity Turbid A (Clear) Urine pH 6.0 (5.0-8.0) pH Units Ur Specific [place] 1.022 (1.010-1.025) Urine Protein >=1000 H (Neg-Trace) mg/dL Urine Glucose (UA) 500 H (Normal) mg/dL - Impressions ITS Impressions Chest X-Ray 03/23/18 12:48 IMPRESSION: 1. No acute abnormality. D/ / Adrien Spear MD / Adrien Spear MD Interpreting Provider: Adrien Spear MD - Assessment and plan (1) Nausea and vomiting Current Visit: Yes Status: Acute Assessment and plan: 1 patient presented with complaint of nausea and vomiting. He reports patient has not been able to keep anything down for the past couple days. Possible diarrhea-family unsure patient states I do not know No fevers -history of small cell carcinoma CT of abdomen and pelvis on 03/20/18 IMPRESSION: 1. Evidence of disease progression in the chest with increase in size of dominant nodule in the right upper lobe as well as increase in size of multiple lung nodules and pleural based nodules, as described above. Additionally, there is new paratracheal lymph node suspicious for metastatic lymphadenopathy. 2. No evidence of metastatic disease in the abdomen or pelvis. 3. Right nephrolithiasis. No obstructive uropathy. 4. Prostatomegaly. Correlation with PSA recommended. Zofran as needed Clear liquids and advance as tolerated GI panel Respiratory panel Qualifiers: Vomiting type: unspecified Vomiting Intractability: intractable Qualified Code(s): R11.2 - Nausea with vomiting, unspecified (2) CVA (cerebral vascular accident) Current Visit: No Status: Chronic Assessment and plan: History of CVA-On 12/21/2017 he had an MRI at [facility] that indicated an acute infarct in the left posterior MCA territory involving the temporoparietal and insular lobes. 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 GFR 12-20 He does have some lower extremity swelling-he has been vomiting we will monitor intake and output Palliative has been consultation Qualifiers: Chronic kidney disease stage: stage 4 (severe) Qualified Code(s): N18.4 - Chronic kidney disease, stage 4 (severe) (4) DM (diabetes mellitus), type 2, uncontrolled, with renal complications Current Visit: No Status: Chronic Assessment and plan: Accu-Cheks before meals and at bedtime with sliding scale insulin diabetic diet- monitor blood sugar closely due to patient's nausea (5) HTN (hypertension) Current Visit: No Status: Chronic Assessment and plan: Continue home medications Qualifiers: Hypertension type: essential hypertension Qualified Code(s): I10 - Essential (primary) hypertension (6) Lung cancer Current Visit: No Status: Chronic Assessment and plan: Patient has a history of small cell carcinoma being followed by oncology as an outpatient currently in hospice. He is currently not receiving any chemotherapy. Patient has a power of erisa attorney which is his son Varun Xavier Alvin patient is a DNR DNI patient son will bring in paperwork Palliative has been consulted industrial services worker has been consulted Continue with oxygen Qualifiers: Laterality: unspecified laterality Lung location: unspecified part of lung Qualified Code(s): C34.90 - Malignant neoplasm of unspecified part of unspecified bronchus or lung (7) MAHAMED (obstructive sleep apnea) Current Visit: No Status: Chronic Assessment and plan: Continue with oxygen patient does not use CPAP or BiPAP at night (8) Small cell lung cancer Current Visit: No Status: Chronic (9) DVT prophylaxis Current Visit: No Status: Suspected Assessment and plan: Heparin subcutaneous (10) Aneurysm Current Visit: No Status: Resolved Assessment and plan: History of cerebral aneurysm with clips 01/07 - Time Spent With Patient Total time spent is greater than 50% in coordination of care (as documented) at patient's floor/unit and/or counseling patient:
[2018-03-23] MEDS ORDERED: Ondansetron 4 MG/2 ML VIAL IVP PRN (18:19)
[2018-03-23] MEDS ORDERED: D5% in Water 1,000 ML IVC PRN (18:35)
[2018-03-23] MEDS ORDERED: *HR* Dextrose 50 % in Water (Syg) 50 ML SYRINGE IVP PRN (18:35)
[2018-03-23] MEDS ORDERED: Dextrose Gel 15 GM/37.5 ML TUBE PO PRN ×2 (18:35)
[2018-03-23] MEDS ORDERED: Insulin LISPRO 300 UNITS/3 ML VIAL SQ SCH (21:00)
[2018-03-23] MEDS ORDERED: Sennosides 8.6 MG TABLET PO PRN (22:05)
[2018-03-23] MEDS ORDERED: Saline Nasal Spray 44 ML BOTTLE NS PRN (22:05)
[2018-03-23] MEDS ORDERED: Nitroglycerin 0.4 MG TAB.SUBL SL PRN (22:05)
[2018-03-23] MEDS ORDERED: Loratadine 10 MG TABLET PO PRN (22:05)
[2018-03-23] MEDS ORDERED: *HR* HYDROcodone/Acet 5/325 mg TABLET PO PRN (22:10)
--- NOTE | 2018-03-23 23:17 | Event Note ---
Date of Encounter: 03/23/18 Time of Encounter: 19:41 Alerted by pts. nurse JAVED Larry that patient was confused and unable to verify medications. Family was not at bedside. Instructed nurse that patient's CODE STATUS needed verified. Nurse stated son is listed his POA and daughter is the store lead. Instructed nurse to contact POA to verify current DNR CCA DNI status was correct. I had attempted to try calling both individuals multiple times without success. Alerted at 20:51 the daughter had called nurse back to verify her medications. Notified at 21:30 the patient's medications were verified and paperwork from [facility] stated no mechanical ventilation but hospice employees were unable to fax because they ornamental iron worker helper are not in an office at this time. Nurse instructed to place note that confirmation was required RUFINO and continue trying to contact POA. DNRCCA DNI will remain until confirmation from [facility] in the a.m. or until POA states otherwise.
[2018-03-24] MEDS: *HR* LORazepam 0.5 MG TABLET PO PRN ×2 (00:12→12:22)
[2018-03-24 04:57] LABS: Basophils # 0.1 K/mcL (0.0-0.2); Basophils % 0.6 %; Eosinophils # 0.2 K/mcL (0.0-0.6); Eosinophils % 1.5 %; Hematocrit 32.5 % (37.5-50.1); Hemoglobin 10.8 g/dL (12.9-16.9); Immature Granulocytes % 0.3 % (0-4); Lymphocytes # 2.2 K/mcL (0.6-4.6); Mean Corpuscular HGB Conc 33.2 g/dL (31.6-35.5); Mean Corpuscular Volume 96.4 fL (83.0-100.0); Mean Platelet Volume 9.5 fL (9.4-12.4); Monocytes # 0.7 K/mcL (0.0-1.3); Monocytes % 6.6 %; Neutrophils # 7.7 K/mcL (1.6-8.9); Platelet Count 270 K/mcL (140-400); Red Blood Count 3.37 M/mcL (4.19-5.50); Red Cell Distribution Width 12.9 % (11.5-14.5)
[2018-03-24 05:16] LABS: Adenovirus Not Detected (Not Detect); Bordetella Pertussis Not Detected (Not Detect); Chlamydophila pneumoniae Not Detected (Not Detect); Coronavirus 229E Not Detected (Not Detect); Coronavirus HKU1 Not Detected (Not Detect); Coronavirus NL63 Not Detected (Not Detect); Coronavirus OC43 Not Detected (Not Detect); Human Metapneumovirus Not Detected (Not Detect); Human Rhinovirus/Enterovirus Not Detected (Not Detect); Influenza A Subtype 2009 H1 Not Detected (Not Detect); Influenza A Untypeable Not Detected (Not Detect); Influenza B Not Detected (Not Detect); Mycoplasma pneumoniae Not Detected (Not Detect); Parainfluenza Virus 1 Not Detected (Not Detect); Parainfluenza Virus 2 Not Detected (Not Detect); Parainfluenza Virus 3 Not Detected (Not Detect); Parainfluenza Virus 4 Not Detected (Not Detect); Respiratory Syncytial Virus Not Detected (Not Detect)
[2018-03-24 05:17] LABS: Albumin 3.1 g/dL (3.5-5.7); Albumin/Globulin Ratio 1.2 (1.1-2.2); Bilirubin,Total 0.4 mg/dL (0.3-1.0); Calcium 8.8 mg/dL (8.6-10.3); Globulin 2.6 g/dL (2.4-3.5); Magnesium 1.5 mg/dL (1.6-2.6); Potassium 3.9 mEq/L (3.5-5.1); Total Protein 5.7 g/dL (6.4-8.9)
[2018-03-24] MEDS ORDERED: *HR* Heparin 5,000 UNIT/ML VIAL SQ SCH (06:00)
[2018-03-24 07:06] LABS: Estimated Average Glucose 171 mg/dl; Hemoglobin A1C 7.6 %
[2018-03-24] MEDS: Insulin LISPRO 300 UNITS/3 ML VIAL SQ SCH ×3 (08:42→16:59)
[2018-03-24] MEDS ORDERED: Aspirin 325 MG TABLET PO SCH (09:00)
[2018-03-24] MEDS ORDERED: GuaiFENesin Liq 200 MG/10 ML UDC PO SCH (09:00)
[2018-03-24] MEDS ORDERED: amLODIPine 5 MG TABLET PO SCH (09:00)
[2018-03-24] MEDS ORDERED: cloNIDine HCl 0.1 MG TABLET PO SCH (09:00)
[2018-03-24] MEDS ORDERED: Metoprolol XL (24 HR) Succ 50 MG TAB.ER.24H PO SCH (09:00)
--- NOTE | 2018-03-24 11:35 | Internal Med Progress Note ---
Hospitalist Progress Note - Encounter Date of Encounter: 03/24/18 Time of Encounter: 10:49 - Exam Vitals: Temp Pulse Resp BP Pulse Ox 98.5 F 85 16 165/89 95 03/24/18 07:23 03/24/18 07:23 03/24/18 07:23 03/24/18 07:23 03/24/18 07:23 - Assessment and Plan (1) Nausea and vomiting Current Visit: Yes Status: Acute (2) CVA (cerebral vascular accident) Current Visit: No Status: Chronic (3) Chronic kidney disease (CKD) Current Visit: No Status: Chronic (4) DM (diabetes mellitus), type 2, uncontrolled, with renal complications Current Visit: No Status: Chronic (5) HTN (hypertension) Current Visit: No Status: Chronic (6) Lung cancer Current Visit: No Status: Chronic (7) MAHAMED (obstructive sleep apnea) Current Visit: No Status: Chronic (8) Small cell lung cancer Current Visit: No Status: Chronic (9) DVT prophylaxis Current Visit: No Status: Suspected (10) Aneurysm Current Visit: No Status: Resolved - Time Spent with Patient Total time spent is greater than 50% in coordination of care (as documented) at patient's floor/unit and/or counseling patient: Internal Medicine: Result - Labs CBC & Chem 7: 03/24/18 04:46 03/24/18 04:46 Labs: Short CBC 03/23/18 03/24/18 Range/Units 13:02 04:46 WBC 11.9 H 10.8 (4.3-11.1) K/mcL Hgb 12.3 L 10.8 L D (12.9-16.9) g/dL Hct 35.5 L 32.5 L (37.5-50.1) % Plt Count 294 270 (140-400) K/mcL Neutrophils # 9.9 H 7.7 (1.6-8.9) K/mcL BMP 03/23/18 03/24/18 13:02 04:46 Sodium 134 L 136 Potassium 3.9 3.9 Chloride 101 105 Carbon Dioxide 22 L 25 BUN 34 H 32 H Creatinine 3.63 H 3.43 H Glucose 225 H 140 H Calcium 9.2 8.8 Cardiac Enzymes 03/23/18 Range/Units 13:02 Troponin I < 0.03 (< 0.04) ng/mL Liver Function 03/23/18 03/24/18 Range/Units 13:02 04:46 Total Bilirubin 0.5 0.4 (0.3-1.0) mg/dL AST 15 15 (13-39) Units/L ALT 10 7 (7-52) Units/L Alkaline Phosphatase 109 H 100 (34-104) Units/L Albumin 3.4 L 3.1 L (3.5-5.7) g/dL Urine 03/23/18 Range/Units 13:47 Urine Color Yellow (Yellow) Urine Clarity Turbid A (Clear) Urine pH 6.0 (5.0-8.0) pH Units Ur Specific [place] 1.022 (1.010-1.025) Urine Protein >=1000 H (Neg-Trace) mg/dL Urine Glucose (UA) 500 H (Normal) mg/dL - ABG Interpretation ABG results: PT/INR, D-dimer PT 11.9 Seconds (9.4-12.1) 03/23/18 13:02 - Impressions Impressions Chest X-Ray 03/23/18 12:48 IMPRESSION: 1. No acute abnormality. D/ / Adrien Spear MD / Adrien Spear MD Interpreting Provider: Adrien Spear MD Consult Discharge Plan - Plan Referrals: Tico Thompson MD [Primary Care Provider] - (1) Nausea and vomiting Qualifiers: Vomiting type: unspecified Vomiting Intractability: intractable Qualified Code(s): R11.2 - Nausea with vomiting, unspecified (2) CVA (cerebral vascular accident) Qualifiers: CVA mechanism: other Qualified Code(s): I63.89 - Other cerebral infarction (3) Chronic kidney disease (CKD) Qualifiers: Chronic kidney disease stage: stage 4 (severe) Qualified Code(s): N18.4 - Chronic kidney disease, stage 4 (severe) (5) HTN (hypertension) Qualifiers: Hypertension type: essential hypertension Qualified Code(s): I10 - Essential (primary) hypertension (6) Lung cancer Qualifiers: Laterality: unspecified laterality Lung location: unspecified part of lung Qualified Code(s): C34.90 - Malignant neoplasm of unspecified part of unspecified bronchus or lung
--- NOTE | 2018-03-24 11:52 | Palliative - Consult Note ---
Date of Encounter: 03/24/18 Time of Encounter: 10:30 - Assessment and Plan (1) Goals of care, counseling/discussion Current Visit: Yes Status: Acute Assessment and plan: I had a 40 minutes phone conversation with pt's Daughter Teressa about GOC. Teressa stated that pt and family have decided after pt's diagnosis of lung cancer to r efuse any treatment and chose hospice care. However Teressa is the primary caregiver, and she feels not supported by her brothers Varun and Beto. Patient is also very stubborn and was asking for her to call the ambulance instead of hospice team. I educated Teressa about hospice plan of care and the n eed to remain within the plan of care and avoid unnecessary procedures, educated about the use of geriatric social work professor in hospice. Teressa confirmed that the family is still agreeable for hospice and will be ready for pt to return home on [facility] once. Called [facility] Director Of Market Intelligence Florencia and made aware. (2) Small cell lung cancer Current Visit: No Status: Chronic Assessment and plan: Latest CT shows progression of disease. Patient is hospice, symptom management only. (3) Nausea and vomiting Current Visit: Yes Status: Acute Assessment and plan: Patient complains of no nausea or vomiting, he reports a good appetite today. Qualifiers: Vomiting type: unspecified Vomiting Intractability: intractable Qualified Code(s): R11.2 - Nausea with vomiting, unspecified Palliative-CN HPI - Data of Consult Patient: new to practice Consult date: 03/24/18 Requesting Physician: Andrews Palma DO Primary Care Provider: Tico Thompson MD - Consult Narrative Reason for consult: patient is enrolled on Hospice History of present illness: Mr. Xavier is a 67 year old male with past medical history of CKD, stage III lung cancer-small cell, CVA, and vascular dementia, was brought to the ED from home complaining of not feeling well for the past several days. Patient this morning was altered, oriented to person and place, but a poor historian. He lives with his Daughter Teressa, and his POA is Varun Welch. He requested Teressa to be called for further discussion. Daughter Teressa was reached on the phone ([phone]), she states pt has had several episodes of vomiting on Saturday, and decreased oral intake. However, on Saturday he was insisting of not feeling well. Pt is enrolled on hospice and Teressa called hospice first for evaluation, but pt was very restless and insisting she called the ambulance, hence she called 911 and pt was admitted. She did not notice any diarrhea, fever. Patient denies pain, dysuria, nausea, vomiting, dizziness. CC: Andrews Palma, DO - Time Spent with Patient Time: Total time spent is greater than 50% face to face with patient and family, in coordination of care (as documented) at patient's floor/unit and/or counseling patient: Past Med Surg Social Fam HX - Past Medical History Medical history: cancer, CVA, dementia, diabetes, glaucoma, hyperlipidemia, hypertension, kidney stones, malignancy, renal disease Additional medical history: sleep apnea, erectile dysfunction, psoriasis Psychiatric history: depression - Past Surgical History Surgical History: cholecystectomy, orthopedic, other, other Additional surgical history: back surgery, loop monitor left chest, aneurysm clamped x2 - Social History Smoking Status: Current every day smoker Packs per day: 1 Smokeless Tobacco Status: No (former user of chew) Alcohol use: none Drug use: none - Family History Father Living Status: Hx Family Cardiac Disorders: Yes Mother Living Status: Hx Family Cancer: Yes Brother Living Status: Hx Family Cardiac Disorders: Yes Hx Family Cancer: Yes Medications and Allergies Omeprazole [PriLOSEC] 40 mg PO DAILY 01/08/16 [History] OxyCODONE/APAP 10/325 [Percocet 10/325 MG] 1 tab PO Q4H PRN 01/08/16 [History] Nitroglycerin 0.4 mg SL Q5MIN PRN #25 tab.subl 05/28/16 [Rx] Aspirin 81 mg PO DAILY 01/01/18 [History] Atorvastatin [Lipitor] 80 mg PO DAILY 01/01/18 [History] Clopidogrel [Plavix] 75 mg PO DAILY 30 Days #30 tablet 03/06/18 [Rx] Acetaminophen [Tylenol] 500 mg PO Q4H PRN 03/23/18 [History] CloNIDine HCl [Kapvay] 0.1 mg PO BID 03/23/18 [History] Glimepiride [Amaryl] 4 mg PO BID 03/23/18 [History] Guaifenesin [Mucus Relief] 400 mg PO DAILY 03/23/18 [History] LORazepam [Ativan] 0.5 mg PO Q4H PRN 03/23/18 [History] Liraglutide [Victoza 2-Isac] 0.2 units SQ DAILY 03/23/18 [History] Loratadine [Claritin] 10 mg PO DAILY PRN 03/23/18 [History] Melatonin [Melatin] 3 mg PO HS 03/23/18 [History] Ondansetron ODT [Zofran ODT] 4 mg SL Q6H PRN 03/23/18 [History] Prochlorperazine Maleate [Compazine] 10 mg PO Q6HR PRN 03/23/18 [History] Saline Nasal [place] [[place] Nasal [place]] 1 spray NS QID PRN 03/23/18 [History] Sennosides [Senna] 8.6 mg PO DAILY PRN 03/23/18 [History] amLODIPine [Norvasc] 5 mg PO BID 03/23/18 [History] hydrALAZINE [HydrALAZINE] 100 mg PO TID 03/23/18 [History] Metoprolol Succinate [Toprol Xl] 50 mg PO DAILY 03/24/18 [History] Allergy/AdvReac Type Severity Reaction Status Date / Time ciprofloxacin [From Cipro] Allergy Hives Verified 03/20/18 17:14 Sulfa (Sulfonamide Allergy Hives Verified 03/20/18 17:14 Antibiotics) celecoxib AdvReac Nausea Verified 03/20/18 17:14 - Constitutional Constitutional ROS PAL: as per HPI - EENT Eyes: no change in vision Ears, nose, mouth, throat: no change in voice, no dysphagia - Cardiovascular Cardiovascular ROS: no chest pain - Respiratory Respiratory: no dyspnea - Gastrointestinal Gastrointestinal: no abdominal pain, no change in bowel habits, no diarrhea - Genitourinary Genitourinary ROS male: no dysuria - Musculoskeletal Musculoskeletal ROS IM: no arthralgias, no muscle weakness - Neurological Neurological ROS: confusion, no dizziness Palliative Care-Exam - Constitutional Vitals: Temp Pulse Resp BP Pulse Ox 98.4 F 66 16 159/79 98 03/24/18 11:30 03/24/18 11:30 03/24/18 11:30 03/24/18 11:30 03/24/18 11:30 - Head Head Exam: Present: atraumatic, normocephalic - Eye Pupils: Present: PERRL - ENT ENT exam: Present: mucous membranes moist - Neck Neck exam: Present: full ROM - Respiratory Respiratory exam: Present: CTAB. Absent: rhonchi, wheezes - Cardiovascular Cardiovascular exam: Present: RRR, +S1, +S2 - GI/Abdominal Exam GI/Abdominal exam: Present: normal bowel sounds, soft. Absent: tenderness - Extremities Exam Extremities exam: Present: pedal edema. Absent: tenderness - Neurological Exam Neurological exam: Present: alert, no focal deficits Additional comments: oriented to person and place. - Skin Skin exam: Present: dry, warm Internal Medicine - CN: Reslt - Labs CBC & Chem 7: 03/24/18 04:46 03/24/18 04:46 Labs: Short CBC 03/23/18 03/24/18 Range/Units 13:02 04:46 WBC 11.9 H 10.8 (4.3-11.1) K/mcL Hgb 12.3 L 10.8 L D (12.9-16.9) g/dL Hct 35.5 L 32.5 L (37.5-50.1) % Plt Count 294 270 (140-400) K/mcL Neutrophils # 9.9 H 7.7 (1.6-8.9) K/mcL BMP 03/23/18 03/24/18 13:02 04:46 Sodium 134 L 136 Potassium 3.9 3.9 Chloride 101 105 Carbon Dioxide 22 L 25 BUN 34 H 32 H Creatinine 3.63 H 3.43 H Glucose 225 H 140 H Calcium 9.2 8.8 Cardiac Enzymes 03/23/18 Range/Units 13:02 Troponin I < 0.03 (< 0.04) ng/mL Liver Function 03/23/18 03/24/18 Range/Units 13:02 04:46 Total Bilirubin 0.5 0.4 (0.3-1.0) mg/dL AST 15 15 (13-39) Units/L ALT 10 7 (7-52) Units/L Alkaline Phosphatase 109 H 100 (34-104) Units/L Albumin 3.4 L 3.1 L (3.5-5.7) g/dL Urine 03/23/18 Range/Units 13:47 Urine Color Yellow (Yellow) Urine Clarity Turbid A (Clear) Urine pH 6.0 (5.0-8.0) pH Units Ur Specific [place] 1.022 (1.010-1.025) Urine Protein >=1000 H (Neg-Trace) mg/dL Urine Glucose (UA) 500 H (Normal) mg/dL - ABG Interpretation ABG results: PT/INR, D-dimer PT 11.9 Seconds (9.4-12.1) 03/23/18 13:02 - Impressions Impressions Chest X-Ray 03/23/18 12:48 IMPRESSION: 1. No acute abnormality. D/ / Adrien Spear MD / Adrien Spear MD Interpreting Provider: Adrien Spear MD Consult Discharge Plan - Plan Referrals: Tico Thompson MD [Primary Care Provider] - Palliative Quality Palliative Quality: Screen for Code Status: Yes, Screen for Goals of Care: Yes, Screen for Pain: Yes, If Pain Regimen Started, Initiate Bowel Regimen: NA, Screen for Nausea/Vomitting: Yes Code Status: 03/23/18 19:31 DNR [Resuscitation Status: Active] [RES] Routine Comment: Resuscitation Status: [id number]
[2018-03-24] MEDS ORDERED: 0.9 % Sodium Chloride 1,000 ML IVC SCH (12:00)
--- NOTE | 2018-03-24 14:18 | Discharge Summary ---
- NOTES TO OUTPATIENT PROVIDER Notes to Outpatient Provider: Had episode of nausea and vomiting-history C KD will monitor electrolytes as outpatient Orders not resulted at time of discharge: Pending orders 03/23/18 12:48 ECG 12 lead ECG [ECG] Stat Date of Encounter: 03/24/18 Time of Encounter: 14:15 - Discharge Diagnosis (1) Nausea and vomiting Priority: Primary Status: Acute Qualifiers: Vomiting type: unspecified Vomiting Intractability: intractable Qualified Code(s): R11.2 - Nausea with vomiting, unspecified (2) CVA (cerebral vascular accident) Priority: Secondary Status: Chronic Qualifiers: CVA mechanism: other Qualified Code(s): I63.89 - Other cerebral infarction (3) Chronic kidney disease (CKD) Priority: Secondary Status: Chronic Qualifiers: Chronic kidney disease stage: stage 4 (severe) Qualified Code(s): N18.4 - Chronic kidney disease, stage 4 (severe) (4) DM (diabetes mellitus), type 2, uncontrolled, with renal complications Priority: Secondary Status: Chronic (5) HTN (hypertension) Priority: Secondary Status: Chronic Qualifiers: Hypertension type: essential hypertension Qualified Code(s): I10 - Essential (primary) hypertension (6) Lung cancer Priority: Secondary Status: Chronic Qualifiers: Laterality: unspecified laterality Lung location: unspecified part of lung Qualified Code(s): C34.90 - Malignant neoplasm of unspecified part of unspecified bronchus or lung (7) MAHAMED (obstructive sleep apnea) Priority: Secondary Status: Chronic (8) Small cell lung cancer Priority: Secondary Status: Chronic (9) Aneurysm Priority: Secondary Status: Resolved Hospital course: Mr. Xavier is a 67 year old male past medical history of CK D stage IV stage III lung cancer small cell history CVA hypertension brain aneurysm 2 with clip diabetes. Patient presented to [facility] ED after experiencing nausea and vomiting for a few days. Family states that patient has not been able to eat or drink. Patient is a hospice patient-and wanted the ambulance causes and the hospice team. Patient was transported to ED lab work did not show elevated creatinine as well as decreased GFR however this seems to be patient's baseline slightly elevated white count 11.9 this appears to be reactive returned back to baseline- chest x-ray with no acute process patient did not have any fevers vital signs are stable. CT of abdomen completed on 03/20 2018 which did not show any evidence of metastatic disease in the abdomen or pelvis. Evidence of disease progression in the chest with increase in size abdominal nodule in the right upper lobe as well as increase in size of multiple lung nodules and pleural based nodules as described additionally there is a new paratracheal lymph node suspicious for metastatic lymphadenopathy, Right nephrolithiasis. No obstructive uropathy.Prostatomegaly. Correlation with PSA recommended. Overnight lesion did not have any episodes of nausea vomiting or diarrhea. He has tolerated oral intake patient denies any pain in his abdomen abdomen soft nontender to palpation. Patient was seen by palliative and can be discharged back home to hospice I did give the patient small amount of fluid due to history of CKD vital signs are stable at this time and he is ready for discharge - Time Spent with Patient Total time spent providing and/or coordinating discharge services: - Discharge Medications Home Medications: Omeprazole [PriLOSEC] 40 mg PO DAILY 01/08/16 [History] OxyCODONE/APAP 10/325 [Percocet 10/325 MG] 1 tab PO Q4H PRN 01/08/16 [History] Nitroglycerin 0.4 mg SL Q5MIN PRN #25 tab.subl 05/28/16 [Rx] Aspirin 81 mg PO DAILY 01/01/18 [History] Atorvastatin [Lipitor] 80 mg PO DAILY 01/01/18 [History] Acetaminophen [Tylenol] 500 mg PO Q4H PRN 03/23/18 [History] CloNIDine HCl [Kapvay] 0.1 mg PO BID 03/23/18 [History] Guaifenesin [Mucus Relief] 400 mg PO DAILY 03/23/18 [History] Liraglutide [Victoza 2-Isac] 0.2 units SQ DAILY 03/23/18 [History] Loratadine [Claritin] 10 mg PO DAILY PRN 03/23/18 [History] Melatonin [Melatin] 3 mg PO HS 03/23/18 [History] Ondansetron ODT [Zofran ODT] 4 mg SL Q6H PRN 03/23/18 [History] Prochlorperazine Maleate [Compazine] 10 mg PO Q6HR PRN 03/23/18 [History] Saline Nasal Tiff [[place] Nasal Tiff] 1 spray NS QID PRN 03/23/18 [History] Sennosides [Senna] 8.6 mg PO DAILY PRN 03/23/18 [History] amLODIPine [Norvasc] 5 mg PO BID 03/23/18 [History] hydrALAZINE [HydrALAZINE] 100 mg PO TID 03/23/18 [History] Metoprolol Succinate [Toprol Xl] 50 mg PO DAILY 03/24/18 [History] Allergies/Adverse Reactions: Allergy/AdvReac Type Severity Reaction Status Date / Time ciprofloxacin [From Cipro] Allergy Hives Verified 03/20/18 17:14 Sulfa (Sulfonamide Allergy Hives Verified 03/20/18 17:14 Antibiotics) celecoxib AdvReac Nausea Verified 03/20/18 17:14 Date of admission: 03/23/18 15:02 Primary care physician: Tico Thompson MD Consults: 03/23/18 17:37 Consult to Pathology Laboratory Aides Teacher [CONS] Routine Reason for SW Consult: discharge planning 03/23/18 17:42 Consult to Nutrition [CONS] Routine Comment: Consulting Provider: NUTRITION Reason for Dietary Consult: MST Score Consult to Pathology Laboratory Aides Teacher [CONS] Routine Reason for SW Consult: respite care 03/23/18 18:10 Consult to Palliative Care [CONS] Routine Comment: Consulting Provider: Palliative Care [place] Reason for Consult: Hospice Time Notified: 18:11 Call Completed: Yes Discharging clinician: Montserrat Garcia Anticipated date of discharge: 03/24/18 - Constitutional Vitals: Temp Pulse Resp BP Pulse Ox 98.4 F 66 16 159/79 98 03/24/18 11:30 03/24/18 11:30 03/24/18 11:30 03/24/18 11:30 03/24/18 11:30 General appearance: Present: A&O X 1 Exam: Head exam: Present: atraumatic, normocephalic - Eye Eye exam: Present: PERRL, conjuntiva pink, sclera anicteric Pupils: Present: PERRL - Neck Neck exam general surgery: Present: supple, trachea midline. Absent: lymphadenopathy - Respiratory Respiratory exam: Present: CTAB. Absent: accessory muscle use, rales, rhonchi, wheezes - Cardiovascular Cardiovascular exam: Present: RRR, +S1, +S2. Absent: diastolic murmur, gallop, rubs, systolic murmur - GI/Abdominal GI/Abdominal exam: Present: normal bowel sounds, soft, tenderness, no peritoneal signs. Absent: distended - Extremities Exam Extremities exam: Present: warm, radial pulses palpable and symmetrical. Absent: calf tenderness, cyanotic, pedal edema - Neurological Exam Neurological exam: Present: CN II-XII intact, oriented X3, no focal deficits. Absent: pronater drift, facial droop, speech deficit - Skin Skin exam: Present: dry, intact - Patient Status Disposition: Hospice - Home Condition: Good Functional capacity at discharge: independent ambulation Overall status at discharge: patient is back to baseline - Discharge Instructions Follow Up With: Tico Thompson MD [Primary Care Provider] - - Diet and Activity Activity: increase activity as tolerated Diet: advance to your usual diet
[2018-03-24 15:55] VITALS: BP 194/95
[2018-03-24] MEDS ORDERED: Melatonin 3 MG TABLET PO SCH (21:00)
== END 2018-03-24 17:50 | disposition hospice, home (50) ==
LOC: 2ANU 12:35 → EMEROOARM 12:35 → 2ANU 16:58
PROVIDERS: ADMIT Internal Medicine; ATTEND Internal Medicine